=== PATIENT | female | born 1940 | race Caucasian/White ===

== ENCOUNTER 2020-03-24 13:56 | Outpatient (REF) | payer MEDICARE, SELFPAY ==
--- NOTE | 2020-03-24 | MM_ITS ---
EXAMINATION: MM SCREENING DIGITAL BREAST TOMOSYNTHESIS, BILATERAL CLINICAL INFORMATION: Screening. Asymptomatic. The lifetime risk of breast cancer based on the Tyrer-Cuzick Model is 2%. COMPARISON: Mammography: 05/02/2017, 04/22/2016 TECHNIQUE: Digital breast tomosynthesis is performed in both the craniocaudal and mediolateral oblique views along with computer-aided detection (CAD). Synthesized 2D images are generated from the tomosynthesis. FINDINGS: There are scattered areas of fibroglandular density (ACR BI-RADS breast composition Category b). Breast tissue composition borders on predominantly fatty. Background stromal and fibroglandular densities are stable. There are no significant masses, abnormal calcifications, or other abnormalities. The axilla and skin contours are unremarkable. MM/MM tomosynthesis screening BI IMPRESSION: No mammographic evidence of malignancy. ASSESSMENT: BI-RADS 1: Negative RECOMMENDATION: Routine annual mammography screening. This patient's information was entered into a reminder system with a target due date for their next mammogram.
== END 2020-03-24 13:57 | disposition home or self-care (01) ==
LOC: HO.MAMMO 13:56
PROVIDERS: PCP Internal Medicine; Visit Provider Internal Medicine
DX: Z12.31 Encounter for screening mammogram for malignant neoplasm of breast (principal)
CPT/HCPCS: 77063; 77067

== ENCOUNTER 2020-06-04 08:31 | Outpatient (REF) | payer MEDICARE, SELFPAY ==
[2020-06-04 09:10] LABS: Hematocrit 39.4 % (37-47); Hemoglobin 12.8 g/dl (12.0-16.0); Mean Corpuscular HGB Conc 32.5 g/dl (31.0-35.0); Mean Corpuscular Hemoglobin 31.4 pg (27.0-33.0); Mean Corpuscular Volume 96.8 fL (80-98); Mean Platelet Volume 10.2 fL (9.4-12.3); Platelet Count 222 X10*3/uL (160-400); Red Blood Count 4.07 X10*6/uL (4.20-5.50); Red Cell Distribution Width 11.6 % (11.0-16.0); White Blood Count 4.2 X10*3/uL (4.8-10.8)
[2020-06-04 09:50] LABS: Alanine Aminotransferase 6 U/L (0-31); Albumin Level 4.2 g/dL (3.5-5.0); Alkaline Phosphatase 68 U/L (39-117); Anion Gap 12 (12-20); Aspartate Amino Transferase 18 U/L (5-31); Bilirubin Total 0.9 mg/dL (0.0-1.0); Blood Urea Nitrogen 13 mg/dL (9-16); Calcium 9.1 mg/dL (8.4-10.2); Carbon Dioxide 29 mmol/L (22-29); Chloride 105 mmol/L (96-108); Cholesterol 243 mg/dL; Estimated Glomerular Filt Rate > 60; Glucose Fasting 82 mg/dL (60-99); HDL Cholesterol 70 mg/dL; LDL Cholesterol Calculated 152 mg/dl; Potassium 4.1 mmol/l (3.3-5.1); Sodium 142 mmol/L (135-145); Total Protein 6.3 g/dL (6.5-8.0); Triglycerides 105 mg/dL
== END 2020-06-04 08:32 | disposition home or self-care (01) ==
LOC: HO.LAB 08:31
PROVIDERS: PCP Internal Medicine; Visit Provider Physician Assistant
DX: Z13.220 Encounter for screening for lipoid disorders (principal); Z13.1 Encounter for screening for diabetes mellitus; F41.9 Anxiety disorder, unspecified; I10 Essential (primary) hypertension
CPT/HCPCS: 36415; 80053; 80061; 84443; 85027

== ENCOUNTER 2020-06-10 | Outpatient (REF) | payer MEDICARE, SELFPAY | END 2020-06-10 00:01 | disposition home or self-care (01) | LOC: HO.VC | PROVIDERS: Visit Provider Internal Medicine | DX: Z23 Encounter for immunization (principal) | CPT/HCPCS: 0011A ==

== ENCOUNTER 2020-07-08 | Outpatient (REF) | payer MEDICARE, SELFPAY | END 2020-07-08 00:01 | disposition home or self-care (01) | LOC: HO.VC | PROVIDERS: Visit Provider Internal Medicine | DX: Z23 Encounter for immunization (principal) | CPT/HCPCS: 0012A ==

== ENCOUNTER 2021-02-22 14:03 | Outpatient (REF) | payer MEDICARE, SELFPAY ==
--- NOTE | ~2021-02-22 | XR_ITS ---
EXAMINATION: XR CERVICAL SPINE CLINICAL INFORMATION: Neck pain. COMPARISON: None TECHNIQUE: 4 views of the cervical spine were obtained. FINDINGS: There is normal cervical lordosis and spinal alignment. The vertebral bodies are intact. Moderate degenerative disc disease is seen at C5-C6 with disc space narrowing and moderate marginal osteophyte formation. The facet joints are unremarkable. The spinous processes and odontoid processes are intact. The prevertebral soft tissues are unremarkable. XR/XR cervical spine 2V IMPRESSION: C5-C6 moderate degenerative disc disease without acute abnormality.
[2021-02-22 14:24] LABS: MANUAL DIFF FLAG NO
[2021-02-22 15:05] LABS: Basophils Absolute Auto 0.1 X10*3/uL (0.0-0.2); Basophils Percent Auto 1.1 % (0-2); Eosinophils Absolute Auto 0.1 X10*3/uL (0.0-0.4); Eosinophils Percent Auto 2.8 % (0-4); Hematocrit 37.4 % (37-47); Hemoglobin 12.6 g/dl (12.0-16.0); Imm Gran Abs Auto 0.01 X10*3/uL (0.00-0.03); Imm Gran Pct Auto 0.2 % (0.0-0.4); Lymphocytes Absolute Auto 1.4 X10*3/uL (1.2-4.9); Lymphocytes Percent Auto 30.7 % (20-40); Mean Corpuscular HGB Conc 33.7 g/dl (31.0-35.0); Mean Corpuscular Hemoglobin 31.7 pg (27.0-33.0); Mean Platelet Volume 10.6 fL (9.4-12.3); Monocytes Absolute Auto 0.4 X10*3/uL (0.1-1.2); Monocytes Percent Auto 9.2 % (2-11); Neutrophils Absolute Auto 2.6 X10*3/uL (2.0-8.3); Platelet Count 208 X10*3/uL (160-400); Red Blood Count 3.98 X10*6/uL (4.20-5.50); White Blood Count 4.6 X10*3/uL (4.8-10.8)
[2021-02-22 15:36] LABS: Alanine Aminotransferase 9 U/L (0-31); Albumin Level 4.2 g/dL (3.5-5.0); Alkaline Phosphatase 71 U/L (39-117); Anion Gap 15 (12-20); Aspartate Amino Transferase 23 U/L (5-31); Bilirubin Total 0.7 mg/dL (0.0-1.0); Blood Urea Nitrogen 10 mg/dL (9-16); Calcium 9.5 mg/dL (8.4-10.2); Carbon Dioxide 22 mmol/L (22-29); Chloride 104 mmol/L (96-108); Cholesterol 233 mg/dL; Estimated Glomerular Filt Rate > 60; Glucose Random 78 mg/dL (60-115); HDL Cholesterol 71 mg/dL; LDL Cholesterol Calculated 148 mg/dl; Potassium 4.4 mmol/L (3.3-5.1); Sodium 137 mmol/L (135-145); Total Protein 6.6 g/dL (6.5-8.0); Triglycerides 74 mg/dL
[2021-02-22 15:49] LABS: Free T4 (Free Thyroxine) 1.06 ng/dL (0.71-1.85); Vitamin D 25-OH Total 57.8 ng/mL (>30)
[2021-02-22 16:07] LABS: Folate 9.4 ng/mL (> or = 4.0); Vitamin B12 330 pg/mL (200-900)
== END 2021-02-22 14:04 | disposition home or self-care (01) ==
LOC: HO.XRAY 14:03
PROVIDERS: PCP Internal Medicine; Visit Provider Internal Medicine
DX: M54.2 Cervicalgia (principal); E78.00 Pure hypercholesterolemia, unspecified
CPT/HCPCS: 36415; 72040; 80053; 80061; 82306; 82607; 82746; 84439; 84443; 85025

== ENCOUNTER 2021-03-29 13:08 | Outpatient (REF) | payer MEDICARE, SELFPAY ==
--- NOTE | ~2021-03-29 | MM_ITS ---
EXAMINATION: MM SCREENING DIGITAL BREAST TOMOSYNTHESIS, BILATERAL CLINICAL INFORMATION: Screening. Asymptomatic. The lifetime risk of breast cancer based on the Tyrer-Cuzick Model is 2%. COMPARISON: Mammography: 03/24/2020, 05/02/2017, 04/22/2016 TECHNIQUE: Digital breast tomosynthesis is performed in both the craniocaudal and mediolateral oblique views along with computer-aided detection (CAD). Synthesized 2D images are generated from the tomosynthesis. FINDINGS: There are scattered areas of fibroglandular density (ACR BI-RADS breast composition Category b). There are no significant masses, abnormal calcifications, or other abnormalities. The axilla and skin contours are unremarkable. MM/MM tomosynthesis screening BI IMPRESSION: No mammographic evidence of malignancy. ASSESSMENT: BI-RADS 1: Negative RECOMMENDATION: Routine annual mammography screening. This patient's information was entered into a reminder system with a target due date for their next mammogram.
== END 2021-03-29 13:09 | disposition home or self-care (01) ==
LOC: HO.MAMMO 13:08
PROVIDERS: Visit Provider Internal Medicine
DX: Z12.31 Encounter for screening mammogram for malignant neoplasm of breast (principal)
CPT/HCPCS: 77063; 77067

== ENCOUNTER 2021-04-06 07:31 | Outpatient (REF) | payer MEDICARE, SELFPAY | END 2021-04-06 07:32 | disposition home or self-care (01) | LOC: HO.LAB 07:31 | PROVIDERS: PCP Internal Medicine; Visit Provider Internal Medicine | DX: Z20.822 Contact with and (suspected) exposure to COVID-19 (principal) | CPT/HCPCS: C9803; U0003; U0005 ==

== ENCOUNTER 2021-07-21 12:34 | Outpatient (REF) | payer MEDICARE, SELFPAY ==
--- NOTE | ~2021-07-21 | XR_ITS ---
EXAMINATION: XR CERVICAL SPINE CLINICAL INFORMATION: Neck pain COMPARISON: None TECHNIQUE: 3 views of the cervical spine were obtained. FINDINGS: There is maintained cervical lordosis. The vertebral heights and alignment is normal. Loss of C4-C5 disc height with ventral spondylosis. Rest of the disc heights are normal. No acute fracture or dislocation seen. The craniovertebral junction and the C1-C2 alignment is normal. There is bilateral C3-4 through C6-C7 facet joint arthropathy and hypertrophy. The prevertebral soft tissues are normal. XR/XR cervical spine 2V IMPRESSION: Degenerative disc changes with ventral spondylosis C5-C6 disc level. No visible acute fracture or dislocation seen.
== END 2021-07-21 12:35 | disposition home or self-care (01) ==
LOC: HO.XRAY 12:34
PROVIDERS: PCP Internal Medicine; Visit Provider Internal Medicine
DX: M54.2 Cervicalgia (principal)
CPT/HCPCS: 72040

== ENCOUNTER 2021-08-19 10:00 | Outpatient (RCR) | payer MEDICARE, SELFPAY ==
--- NOTE | 2021-07-13 11:26 | MHC.PT.EP ---
[facility] [place] Office [place] Office [place] Office [address] [phone] F: [phone] F: [phone] F: [phone] F: [phone] Physical Therapy Plan of Care Date of Evaluation: Date of Surgery: N/A Diagnosis: Cervicalgia Assessment: Pt is pleasant 81yo F who presents to PT with reports of L sided neck pain. She presents with current impairments in pain, decreased cervical ROM, impaired posture, and soft tissue restrictions throughout L UT, levator, and occipitals. She had relief of symptoms with gentle STM. She is limited functionally with flexing her neck, morning time, and watching tv. She is a good candidate for skilled PT in order to address current impairments to facilitate return to PLOF. She will be seen 2x/week for 4 weeks and will be reassessed at that time. Frequency and Duration: The patient will be seen 2x/week for 4 weeks Short Term Goals: Pt will be I with HEP to promote self management of symptoms Pt will improve B cervical rotation by at least 5 deg Systems Technologist Goals: Pt will demonstrate ability to sit > 30 min with minimal to no pain throughout neck Pt will perform ADLs with minimal to no pain without compensation Treatment Plan: Modalities to reduce pain, spasms and effusion. Manual therapy to restore motion and function. Therapeutic exercise to improve strength and flexibility. Neuromuscular re-education for posture and balance. Therapeutic activities to return to functional activities of daily living. Electronically signed by: Dixie Barnes, PT, DPT Please sign and return to therapist. Thank you for your referral.
--- NOTE | 2021-08-19 17:56 | MHC.PT.DC ---
[facility] [place] Office [place] Office [place] Office [address] [phone] F: [phone] F: [phone] F: [phone] F: [phone] Physical Therapy Discharge Report Diagnosis: Cervicalgia Date of Surgery: N/A Date of Evaluation: 07/13/21 Date of Discharge: 08/19/21 Treatments to Date: 9 Cancellations to Date: 2 No Shows to Date: Discharge Status: Achieved Goals Improved Function Independent with HEP Discharge Summary: Pt has made good progress since SOC. She has demonstrated improvements in cervical ROM, improvements in postural awareness, and has had an overall decrease in pain. She has made good progress toward her STGs and LTGs. Pt is I with HEP. Pt is being D/C from skilled PT services at this time. Provided pt a printed, updated copy of HEP and RTB and pt verbalized understanding. Pt reports no further questions or concerns for PT at this time. Electronically signed by: Dixie Barnes, PT, DPT Please sign and return to therapist. Thank you for your referral.
== END 2021-08-25 11:36 | disposition home or self-care (01) ==
LOC: HO.PT 10:00
PROVIDERS: PCP Internal Medicine; Visit Provider Nurse Practitioner Family
DX: M54.2 Cervicalgia (principal)
CPT/HCPCS: 97110; 97140; 97161

== ENCOUNTER 2021-08-26 12:19 | Outpatient (REF) | payer MEDICARE, SELFPAY ==
--- NOTE | ~2021-08-26 | US_ITS ---
EXAMINATION: ULTRASOUND LOWER EXTREMITY ARTERIAL, LEFT TECHNIQUE: COLOR-FLOW DUPLEX IMAGING OF THE LEFT LOWER EXTREMITY ARTERIAL SYSTEM. VELOCITY MEASUREMENTS THROUGHOUT THE FEMORAL ARTERIES. CLINICAL INFORMATION: Pain in left leg COMPARISON: None. FINDINGS: LEFT FEMORAL RUNOFF VELOCITIES: The left common femoral artery measures 146cm/s and is triphasic. The left profunda femoral artery measures 80.1cm/s and is triphasic. Left proximal superficial femoral artery measures 128 cm/s and is triphasic. Mid superficial femoral artery measures 86.5cm/s and is triphasic. Distal left superficial femoral artery [id number]/s and is triphasic. Left popliteal velocity measures 56.6cm/s and is triphasic. Posterior tibial velocity is 69.8cm/s and flow is biphasic. Peroneal velocity is 58.6 and flow is biphasic Anterior tibial artery not evaluated. Dorsal pedis artery not evaluated. Left DIONY: Not obtained US/US arterial duplex LE IMPRESSION: No hemodynamically significant stenosis identified in the visualized arterial vasculature with patency of the interrogated vessels.
--- NOTE | ~2021-08-26 | US_ITS ---
EXAMINATION: US VENOUS ULTRASOUND WITH DOPPLER LOWER EXTREMITY, LEFT CLINICAL INFORMATION: Left leg swelling COMPARISON: Left leg DVT study 05/21/2019 TECHNIQUE: Ultrasound of the deep veins is performed from the hip to the calf with compression sonography and color and pulse Doppler assessment. Spectral analysis with color-flow imaging is performed. FINDINGS: There is normal venous compression and respiratory variation and augmented flow. The visualized common femoral vein, superficial femoral vein, profunda femoral vein, popliteal vein, and the trifurcation region shows no evidence of deep venous thrombosis. There is no significant popliteal fossa cyst. If the patient's symptoms persist, followup ultrasound in 5 days 7 days might be of value to exclude proximal propagation from a non-visualized calf vein. US/US venous duplex LE LT IMPRESSION: No DVT demonstrated in the left lower extremity.
== END 2021-08-26 12:20 | disposition home or self-care (01) ==
LOC: HO.US 12:19
PROVIDERS: Visit Provider Nurse Practitioner Family
DX: M79.605 Pain in left leg (principal); M79.89 Other specified soft tissue disorders; I73.9 Peripheral vascular disease, unspecified
CPT/HCPCS: 93926; 93971

== ENCOUNTER 2022-02-10 07:59 | Outpatient (REF) | payer MEDICARE, SELFPAY ==
[2022-02-10 09:31] LABS: Basophils Percent Auto 0.9 % (0-2); Hemoglobin 12.4 g/dl (12.0-16.0); Monocytes Absolute Auto 0.4 X10*3/uL (0.1-1.2); Monocytes Percent Auto 8.7 % (2-11); PLT CLUMP 1; SCAN SMEAR FLAG 1
[2022-02-10 09:34] LABS: Eosinophils Absolute Auto 0.1 X10*3/uL (0.0-0.4); Eosinophils Percent Auto 2.3 % (0-4); Hematocrit 37.4 % (37.0-47.0); Imm Gran Abs Auto 0.01 X10*3/uL (0.00-0.03); Imm Gran Pct Auto 0.2 % (0.0-0.4); Lymphocytes Absolute Auto 1.1 X10*3/uL (1.2-4.9); Lymphocytes Percent Auto 24.9 % (20-40); MANUAL DIFF FLAG SCAN; Mean Corpuscular HGB Conc 33.2 g/dl (31.0-35.0); Mean Corpuscular Hemoglobin 31.2 pg (27.0-33.0); Neutrophils Absolute Auto 2.7 x10*3/uL (2.0-8.3); Red Blood Count 3.98 X10*6/uL (4.20-5.50)
[2022-02-10 09:55] LABS: White Blood Count 4.3 X10*3/uL (4.8-10.8)
[2022-02-10 09:56] LABS: SLIDE REVIEW VERIFIED
[2022-02-10 09:59] LABS: B Type Natriuretic Peptide 46 pg/mL (<100)
[2022-02-10 10:09] LABS: Alanine Aminotransferase 13 U/L (0-31); Albumin Level 4.1 g/dL (3.5-5.0); Alkaline Phosphatase 83 U/L (39-117); Anion Gap 16 (12-20); Aspartate Amino Transferase 26 U/L (5-31); Bilirubin Total 0.6 mg/dL (0.0-1.0); Blood Urea Nitrogen 11 mg/dL (9-16); Calcium 9.3 mg/dL (8.4-10.2); Carbon Dioxide 24 mmol/L (22-29); Chloride 105 mmol/L (96-108); Cholesterol 225 mg/dL; Estimated Glomerular Filt Rate > 60; Glucose Random 77 mg/dL (60-115); HDL Cholesterol 72 mg/dL; LDL Cholesterol Calculated 135 mg/dl; Potassium 4.3 mmol/L (3.3-5.1); Sodium 141 mmol/L (135-145); Total Protein 6.5 g/dL (6.5-8.0); Triglycerides 91 mg/dL
[2022-02-10 10:36] LABS: Free T4 (Free Thyroxine) 1.06 ng/dL (0.71-1.85); Thyroid Stimulating Hormone 0.56 uIU/mL (0.32-4.0); Vitamin D 25-OH Total 61.8 ng/mL (>30)
[2022-02-10 11:47] LABS: Folate > 20.0 ng/mL (> or = 4.0); Vitamin B12 500 pg/mL (200-900)
== END 2022-02-10 08:00 | disposition home or self-care (01) ==
LOC: HO.LAB 07:59
PROVIDERS: PCP Internal Medicine; Visit Provider Internal Medicine
DX: E78.00 Pure hypercholesterolemia, unspecified (principal)
CPT/HCPCS: 36415; 80053; 80061; 82306; 82607; 82746; 83735; 83880; 84439; 84443; 85025

== ENCOUNTER 2022-04-04 12:06 | Outpatient (REF) | payer MEDICARE, SELFPAY ==
--- NOTE | ~2022-04-04 | MM_ITS ---
EXAMINATION: MM SCREENING DIGITAL BREAST TOMOSYNTHESIS, BILATERAL CLINICAL INFORMATION: Screening. Asymptomatic. The lifetime risk of breast cancer based on the Tyrer-Cuzick Model is 2%. COMPARISON: Mammography: 03/29/2021, 03/24/2020, 05/02/2017 TECHNIQUE: Digital breast tomosynthesis is performed in both the craniocaudal and mediolateral oblique views along with computer-aided detection (CAD). Synthesized 2D images are generated from the tomosynthesis. FINDINGS: There are scattered areas of fibroglandular density (ACR BI-RADS breast composition Category b). There are no significant masses, abnormal calcifications, or other abnormalities. Breast tissue composition borders on predominantly fatty. Background stromal markings are similar to prior study. No developing density. No architectural abnormality. The axilla and skin contours are unremarkable. MM/MM tomosynthesis screening BI IMPRESSION: No mammographic evidence of malignancy. ASSESSMENT: BI-RADS 1: Negative RECOMMENDATION: Routine annual mammography screening. This patient's information was entered into a reminder system with a target due date for their next mammogram.
== END 2022-04-04 12:07 | disposition home or self-care (01) ==
LOC: HO.MAMMO 12:06
PROVIDERS: PCP Internal Medicine; Visit Provider Internal Medicine
DX: Z12.31 Encounter for screening mammogram for malignant neoplasm of breast (principal)
CPT/HCPCS: 77063; 77067

== ENCOUNTER 2022-05-20 12:12 | Emergency (ER) | payer MEDICARE, SELFPAY ==
--- NOTE | ~2022-05-20 | CT_ITS ---
EXAMINATION: CT ABDOMEN AND PELVIS WITH CONTRAST CLINICAL INFORMATION: Lower abdominal pain. Rule out diverticulitis COMPARISON: 04/06/2018 TECHNIQUE: Multidetector volumetric images were obtained from the superior aspect of the liver through the pubic symphysis following administration 85 mL of Omnipaque 350 intravenous contrast. Sagittal and coronal reformatted images were obtained on the technologist's workstation. Oral contrast: No This CT examination was performed using dose optimization techniques as appropriate, variously including the following: *Automated exposure control *Adjustment of mA and/or kV according to patient size (this includes techniques or standardized protocols for targeted exams where dose is matched to indication/reason for exam; i.e. extremities or head) *Use of iterative reconstruction technique DLP: 683 mGy-cm FINDINGS: LUNG BASES: The visualized lung bases are unremarkable. LIVER, GALLBLADDER, AND BILIARY TREE: The liver is normal in size, shape, and attenuation no focal liver lesion seen. Mild central intrahepatic biliary ductal dilatation. The common bile duct is dilated to 1.2 cm. No filling defects seen. There are gallstones within the gallbladder. The gallbladder is significantly distended but there is no gallbladder wall thickening or pericholecystic fluid. PANCREAS: Unremarkable. SPLEEN: Normal size. No focal splenic lesion. 6 mm calcified splenic artery aneurysm. ADRENAL GLANDS: Unremarkable. KIDNEYS AND URETERS: The kidneys are normal in size, shape, and attenuation. No hydronephrosis, hydroureter, or calculi seen. No perinephric stranding. BLADDER: Unremarkable. GASTROINTESTINAL TRACT: Small hiatal hernia. Small bowel nondilated. Normal appendix. There is severe sigmoid diverticulosis. There is fluid and fat stranding along the left lateral margin of the sigmoid colon with irregular sigmoid wall thickening. ABDOMINAL WALL: No significant hernia is appreciated. LYMPH NODES: Normal. VASCULAR: Normal caliber abdominal aorta. IVC is patent. Prominent rectal collaterals. PELVIC VISCERA: Normal CT appearance of the uterus. No adnexal mass. OSSEOUS STRUCTURES: Degenerative changes. No acute or suspicious osseous abnormality. CT/CT abdomen pelvis w IV con IMPRESSION: Eccentric wall thickening of the sigmoid colon with adjacent fluid and fat stranding. There is a background of severe colonic diverticulosis. The appearance suggest diverticulitis although a short segment colitis could have this appearance as well. The findings are new since the prior CT scan in 2018. Recommend colonoscopy after treatment to exclude a microperforated colon cancer which can present similarly. Fleischner guidelines were followed.
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
[2022-05-20 12:19] VITALS: BP 149/78; PULSE 108; RESP 18; TEMP 36.8; O2SAT 97; BMI 22.4
[2022-05-20 13:12] LABS: MANUAL DIFF FLAG NO
[2022-05-20 13:13] LABS: Basophils Percent Auto 0.3 % (0-2); Eosinophils Percent Auto 0.4 % (0-4); Hematocrit 36.9 % (37.0-47.0); Hemoglobin 12.4 g/dl (12.0-16.0); Imm Gran Abs Auto 0.01 X10*3/uL (0.00-0.03); Imm Gran Pct Auto 0.1 % (0.0-0.4); Lymphocytes Absolute Auto 0.8 X10*3/uL (1.2-4.9); Mean Corpuscular HGB Conc 33.6 g/dl (31.0-35.0); Mean Corpuscular Hemoglobin 31.3 pg (27.0-33.0); Mean Corpuscular Volume 93.2 fL (80.0-98.0); Mean Platelet Volume 9.7 fL (9.4-12.3); Monocytes Absolute Auto 0.8 X10*3/uL (0.1-1.2); Monocytes Percent Auto 8.7 % (2-11); Neutrophils Absolute Auto 7.9 x10*3/uL (2.0-8.3); Neutrophils Percent Auto 82.5 % (45-73); Platelet Count 200 X10*3/uL (160-400); Red Blood Count 3.96 X10*6/uL (4.20-5.50); Red Cell Distribution Width 11.8 % (11.0-16.0); White Blood Count 9.6 X10*3/uL (4.8-10.8)
[2022-05-20 13:35] LABS: Alanine Aminotransferase 10 U/L (0-31); Alkaline Phosphatase 84 U/L (39-117); Anion Gap 13 (12-20); Aspartate Amino Transferase 23 U/L (5-31); Bilirubin Direct 0.3 mg/dL (0.0-0.5); Bilirubin Total 0.9 mg/dL (0.0-1.0); Blood Urea Nitrogen 12 mg/dL (9-16); Calcium 9.3 mg/dL (8.4-10.2); Carbon Dioxide 27 mmol/L (22-29); Chloride 102 mmol/L (96-108); Creatinine Clr Calc Pharmacy 53.1; Estimated Glomerular Filt Rate > 60; Glucose Random 96 mg/dL (60-115); Lipase 19 U/L (8-78); Potassium 4.1 mmol/L (3.3-5.1); Sodium 138 mmol/L (135-145); Total Protein 6.3 g/dL (6.5-8.0)
[2022-05-20 14:28] VITALS: BP 145/67; PULSE 83; RESP 14; TEMP 37.2; O2SAT 98
[2022-05-20 14:28] LABS: Appearance Urine Clear; Color Urine Yellow; Glucose Urine UA Negative (Negative); Leukocyte Esterase Urine Trace (Negative); Nitrite Urine Negative (Negative); PH 6.5 (5.0-9.0); UMIC TRIGGER UACC YES; Urine Blood Negative (Negative); Urine Ketones Negative (Negative); Urine Protein Negative (Neg-Trace)
[2022-05-20 14:31] LABS: Bacteria Urine None Seen (None Seen); Hyaline Casts Urine 0-2 /LPF (0-2); RBC Urine 0-2 /HPF (0-2); Squamous Epithelial Cell Urine 0-2 /HPF (0-2); WBC Urine 0-5 /HPF (0-5)
[2022-05-20] MEDS: iohexoL 350 MG/ML 100 ML INFUS..BTL IV (14:35)
== END 2022-05-20 16:11 | disposition home or self-care (01) ==
PROVIDERS: Nurse Practitioner Family; Emergency Provider Emergency Medicine; PCP Internal Medicine
DX: K57.32 Diverticulitis of large intestine without perforation or abscess without bleeding (principal); R10.30 Lower abdominal pain, unspecified; Z87.891 Personal history of nicotine dependence; Z79.899 Other long term (current) drug therapy
CPT/HCPCS: 36415; 74177; 80048; 80076; 81001; 83690; 85025; 99284; Q9967

== ENCOUNTER 2022-05-27 14:08 | Outpatient (REF) | payer MEDICARE, SELFPAY ==
--- NOTE | ~2022-05-27 | MM_ITS ---
EXAMINATION: BONE DENSITOMETRY CLINICAL INDICATION: Age-related osteoporosis without current pathological fracture. COMPARISON: Baseline BD dated 02/28/2019. TECHNIQUE: Using a Blow[employer]ch DXA System (software version: 13.1) manufactured by [email or web address], dual-energy x-ray absorptiometry was performed of the lumbar spine and left hip. The images are of good technical quality. Summary results are attached. FINDINGS: AP SPINE L1-L4: Current: BMD 1.110 g/cm2, Z-score 1.4, T-score -0.6, normal, 4.7% decrease from baseline (<5% change is not significant). Baseline: BMD 1.165 g/cm2. LEFT FEMUR, NECK: Current: BMD 0.699 g/cm2, Z-score -0.2, T-score -2.4, osteopenia. Baseline: BMD 0.724 g/cm2. LEFT FEMUR, TOTAL: Current: BMD 0.723 g/cm2, Z-score -0.2, T-score -2.3, osteopenia, 5.1% decrease from baseline (<5% change is not significant). Baseline: BMD 0.762 g/cm2. IDENTIFIED RISK FACTORS: Menopause. HISTORY OF FRACTURE: None listed. MEDICATIONS: Multivitamin. MM/XR DEXA axial skeleton IMPRESSION: 1. DIAGNOSIS: Osteopenia based on the lowest T-score value of -2.4 in the femoral neck applying World Health Organization criteria. 2. 10-YEAR FRACTURE RISK PREDICTION, FRAX: Major osteoporotic fracture (clinical spine, forearm, hip or shoulder) 18.9%. Hip fracture 6.6%. 3. Treatment Recommendations: NOF guidelines recommend consideration for treatment in postmenopausal women and men age 50 and older presenting with the following: -A hip or vertebral (clinical or morphometric) fracture. -T-score less than or equal to -2.5 at the femoral neck or spine after appropriate evaluation to exclude secondary causes. -Low bone mass at the hip or spine and a 10-year fracture probability by FRAX of greater than or equal to 3% for hip fracture or greater than or equal to 20% for major osteoporotic fracture based on the [place] adapted WHO algorithm. 4. Other Recommendations: All treatment decisions require clinical judgment and consideration of individual patient factors, including patient preferences, comorbidities, previous drug use, risk factors not captured in the FRAX model (e.g. frailty, falls, vitamin D deficiency, increased bone turnover, interval significant decline in bone density) and possible under or overestimation of fracture risk by FRAX. Additional medical evaluation for secondary cause of low bone mineral density may be appropriate. FUTURE SCAN RECOMMENDATION: People with diagnosed cases of osteoporosis or at high risk for fracture should have regular bone mineral density tests. For patients eligible for Medicare, routine testing is allowed once every 2 years. The testing frequency can be increased to one year for patients who have rapidly progressing disease, those who are receiving or discontinuing medical therapy to restore bone mass, or have additional risk factors.
== END 2022-05-27 14:09 | disposition home or self-care (01) ==
LOC: HO.MAMMO 14:08
PROVIDERS: PCP Internal Medicine; Visit Provider Internal Medicine
DX: M81.0 Age-related osteoporosis without current pathological fracture (principal); Z78.0 Asymptomatic menopausal state
CPT/HCPCS: 77080

== ENCOUNTER → 2022-07-13 11:35 | Outpatient (BNVA) | payer MEDICARE, SELFPAY | PROVIDERS: PCP Internal Medicine; Referring Provider Internal Medicine; Visit Provider Nurse Practitioner Family | DX: K59.04 Chronic idiopathic constipation (principal); K57.92 Diverticulitis of intestine, part unspecified, without perforation or abscess without bleeding | CPT/HCPCS: 99202 ==

== ENCOUNTER → 2022-08-10 12:20 | Outpatient (BNVA) | payer MEDICARE, SELFPAY | PROVIDERS: PCP Internal Medicine; Visit Provider Nurse Practitioner Family | DX: K59.04 Chronic idiopathic constipation (principal); K57.90 Diverticulosis of intestine, part unspecified, without perforation or abscess without bleeding | CPT/HCPCS: 99212 ==

== ENCOUNTER 2022-11-17 09:32 | Outpatient (AMB) | payer MEDICARE, SELFPAY ==
[2022-11-17 09:42] VITALS: BP 138/74; PULSE 76; O2SAT 96; BMI 22.0
--- NOTE | 2022-11-17 09:42 | A.OFFPC_ITS ---
Vital Signs 11/17/22 09:42 Height 5 ft 5 in Weight 132 lb BMI 22.0 BP 138/74 Blood Pressure Location Lt brachial Position Sitting Pulse 76 Pulse Source Pulse Oximeter Pulse Oximetry (%) 96 Oxygen Delivery Method Room Air Intake Visit Reasons: 6m F/U cholesterol , COPD Allergies aspirin [ASPIRIN] Allergy (Severe, Verified 11/17/22 09:43) ANAPHYLAXIS codeine [CODEINE] Allergy (Severe, Verified 11/17/22 09:43) ANAPHYLAXIS, itching naproxen [NAPROXEN] Allergy (Severe, Verified 11/17/22 09:43) ANAPHYLAXIS NSAIDS (Non-Steroidal Anti-Inflamma [NSAIDS (NON-STEROIDAL ANTI-INFLAMMA] All ergy (Severe, Verified 11/17/22 09:43) ANAPHYLAXIS (STATES CAN TAKE IBUPROFEN) doxycycline [DOXYCYCLINE] Allergy (Unknown, Verified 11/17/22 09:43) RASH ranitidine [From ZANTAC] Allergy (Unknown, Verified 11/17/22 09:43) UNKNOWN sertraline [From ZOLOFT] Allergy (Unknown, Verified 11/17/22 09:43) FELT LIKE I WAS ON FIRE Sulfa (Sulfonamide Antibiotics) [SULFA (SULFONAMIDE ANTIBIOTICS)] Allergy (Unknown, Verified 11/17/22 09:43) UNKNOWN Tobacco use date assessed: 06/08/22 Fall risk assessment: No Falls in past year Last assessed Fall Risk: 11/17/22 Dental Screening Dental Screen Date: 11/17/22 Did you have a dental visit in the last 12 months?: No Did you have a dental problem in the last 6 months where you did not have access to dental care?: No Was dental information given to patient?: Patient has dentist HPI 6m F/U cholesterol , COPD HPI Details 82-year-old female with a history of diverticulitis cholelithiasis Ellie anxiety disorder constipation and splenic artery aneurysm coming in for follow-up last seen in June 2022 patient did see gastroenterology August 2022 for the constipation Colace, Metamucil and increasing oral fluids advised Senokot. 2 month L leg on walking pain on the lateral posterior knee area and gets better on sitting denies any fall or trauma and with this complains of pain otherwise no nausea no vomiting no chest pains no shortness of breath no bowel bladder symptoms. [facility] Medical History Allergic rhinitis Diverticulitis Generalized anxiety disorder History of diverticulitis Hypercholesterolemia Insomnia Osteoarthritis, knee Osteopenia Pulmonary nodule Small bowel obstruction Surgical History History of bilateral cataract extraction History of cataract surgery History of colonoscopy History of tonsillectomy History of tonsillectomy Family History Father Obesity Stroke Mother Afib Son Diabetes Father No problems noted. Mother No problems noted. Son No problems noted. Social History Housing: House Alcohol intake: current Alcohol intake frequency: holidays/special occasions only Alcohol type: wine Patient Tobacco Use Status: Former Tobacco user Tobacco use type: Cigarette e-Cigarette/Vaping Use: Never Used Second Hand Smoke Exposure: Yes service: No Current occupational status: retired Cognitive needs: No Hearing needs: No Vision needs: Yes (reading glasses) Questionnaire PHQ-9 Over the last 2 weeks, how often have you been bothered by any of the following problems? 1. Little interest or pleasure in doing things: not at all 2. Feeling down, depressed, or hopeless: not at all 3. Trouble falling or staying asleep, or sleeping too much: not at all 4. Feeling tired or having little energy: not at all 5. Poor appetite or overeating: not at all 6. Feeling bad about yourself - or that you are a failure or have let yourself or your family down: not at all 7. Trouble concentrating on things, such as reading the newspaper or watching television: not at all 8. Moving or speaking so slowly that other people could have noticed. Or the opposite - being so fidgety or restless that you have been moving around a lot more than usual: not at all 9. Thoughts that you would be better off or of hurting yourself in some way: not at all Total score: 0 Depression Screening Interpretation: Negative Source: Developed by Drs. Boubacar Valdez, Connie Ma, Anthony Coleman and colleagues, with an educational swathi from [employer]. Thrive Questionnaire Date Thrive assessed: 06/08/22 AUDIT C Alcohol Use Questionnaire (AUDIT-C) 1. How often do you have a drink containing alcohol?: Never Total Score: 0 Score Reviewed/Action Taken: No EUSEBIA-7 AMB Questionnaire EUSEBIA-7 Date EUSEBIA - 7 assessed: 06/08/22 Source: Developed by Drs. Boubacar Valdez, Connie Ma, Anthony Coleman and colleagues, with an educational swathi from [employer]. Physical exam (Primary Care) Vital Signs: Last Vital Signs Pulse 76 11/17/22 09:42 BP 138/74 11/17/22 09:42 Pulse Ox 96 11/17/22 09:42 Oxygen Delivery Method Room Air 11/17/22 09:42 BMI result Body Mass Index 22.0 Tobacco/Smoking Status: Tobacco use Status Tobacco use date assessed 06/08/22 11/17/22 09:44 Patient Tobacco Use Status Former Tobacco user 11/17/22 09:44 Tobacco use type Cigarette 11/17/22 09:44 e-Cigarette/Vaping Use Never Used 11/17/22 09:44 PHQ-9: PHQ-9 Score PHQ-9: Total score 0 11/17/22 10:09 Depression Screening Interpretation: Negative Thrive Assessment: Date of Thrive Assessment Date Thrive assessed 06/08/22 11/17/22 09:44 Const General: alert; No acute distress Eyes Conjunctivae: conjunctivae normal Resp Auscultation: clear to auscultation bilaterally Cardio Rate: regular rate Rhythm: regular rhythm GI Inspection: Yes normal to inspection Extrem General: Yes normal to inspection and No edema Assessment and Plan Assessment & Plan (1) Constipation: Code(s): K59.00 - Constipation, unspecified Qualifiers: Constipation type: chronic idiopathic constipation Qualified Code(s): K59.04 - Chronic idiopathic constipation Plan: Three rules for constipation 1. Diet need to have a high fiber diet less of meat 2. Increase oral fluids 3. Exercise patient has been following up with Gastroenterology has been placed on Colace, Senokot and Metamucil. Stressed to the patient the need to make sure she is well hydrated with fluids (2) Cholelithiasis: Comment: 05/2022 Code(s): K80.20 - Calculus of gallbladder without cholecystitis without obstruction Plan: Low-fat diet (3) Hypercholesterolemia: Code(s): E78.00 - Pure hypercholesterolemia, unspecified Plan: Avoid fried foods, chicken skin, eggs, butter margarine, pastries and meat. Be it pork or beef they have a lot of cholesterol LDL goal of less than 130 and triglyceride of less than 150 (4) Generalized anxiety disorder: Code(s): F41.1 - Generalized anxiety disorder Plan: Continue with present medication (5) Hamstring tendinitis of left thigh: Code(s): M76.892 - Other specified enthesopathies of left lower limb, excluding foot Plan: will refer to physical therapy Orders: Orders Vitamin B12 and Folate 3 Months E78.00 - Pure hypercholesterolemia, unspecified Comprehensive Met. Panel 3 Months E78.00 - Pure hypercholesterolemia, unspecified Lipid Panel 3 Months E78.00 - Pure hypercholesterolemia, unspecified Free T4 (Free Thyroxine) 3 Months E78.00 - Pure hypercholesterolemia, unspecified Thyroid Stimulating Hormone 3 Months E78.00 - Pure hypercholesterolemia, unspecified Vitamin D 25-OH Total 3 Months E78.00 - Pure hypercholesterolemia, unspecified Complete Blood Count Auto Diff 3 Months E78.00 - Pure hypercholesterolemia, unspecified PT Evaluation and Treatment Today M76.892 - Other specified enthesopathies of left lower limb, excluding foot Coding Level of Care Code Est Pt Level 4 (89900) Diagnoses Constipation K59.04 Constipation type: chronic idiopathic constipation Cholelithiasis K80.20 Hypercholesterolemia E78.00 Generalized anxiety disorder F41.1 Hamstring tendinitis of left thigh M76.892 Additional Codes PHQ-9 - 79312 - PHQ-9 Billing: Y ([id number])
== END 2022-11-17 10:32 | disposition home or self-care (01) ==
PROVIDERS: Visit Provider Internal Medicine
DX: K59.04 Chronic idiopathic constipation (principal); K80.20 Calculus of gallbladder without cholecystitis without obstruction; E78.00 Pure hypercholesterolemia, unspecified; F41.1 Generalized anxiety disorder; M76.892 Other specified enthesopathies of left lower limb, excluding foot
CPT/HCPCS: 99214

== ENCOUNTER 2022-12-13 12:44 | Outpatient (AMB) | payer MEDICARE, SELFPAY ==
--- NOTE | 2022-12-13 12:56 | MHC.OFFVIS ---
Intake Vital Signs 12/13/22 12:57 Height 5 ft 5 in Weight 132 lb 11.492 oz BMI 22.1 BP 142/67 H Blood Pressure Location Rt brachial Position Sitting Pulse 73 Intake Visit Reasons: 4 month follow up Intake Note: Siena presents in office as a est.patient for a 4month f/u for constipation. PT CC: Patient reports she has been having constipation. Denies other GI symptoms. pt denies any other GI Issues Coagulant Dipper Required: No Allergies aspirin [ASPIRIN] Allergy (Severe, Verified 12/13/22 12:58) ANAPHYLAXIS codeine [CODEINE] Allergy (Severe, Verified 12/13/22 12:58) ANAPHYLAXIS, itching naproxen [NAPROXEN] Allergy (Severe, Verified 12/13/22 12:58) ANAPHYLAXIS NSAIDS (Non-Steroidal Anti-Inflamma [NSAIDS (NON-STEROIDAL ANTI-INFLAMMA] Allergy (Severe, Verified 12/13/22 12:58) ANAPHYLAXIS (STATES CAN TAKE IBUPROFEN) doxycycline [DOXYCYCLINE] Allergy (Unknown, Verified 12/13/22 12:58) RASH ranitidine [From ZANTAC] Allergy (Unknown, Verified 12/13/22 12:58) UNKNOWN sertraline [From ZOLOFT] Allergy (Unknown, Verified 12/13/22 12:58) FELT LIKE I WAS ON FIRE Sulfa (Sulfonamide Antibiotics) [SULFA (SULFONAMIDE ANTIBIOTICS)] Allergy (Unknown, Verified 12/13/22 12:58) UNKNOWN HPI 4 month follow up HPI Details LAST VISIT Constipation Patient continues to be constipated, she is taking 2 Colace capsules in the morning and Metamucil in the evening. Encouraged patient to increase fluid intake. Patient had severe sigmoid colon diverticulosis that was seen on CT scan. This could interfere with peristalsis. Will start her on Senokot and hopefully patient will be able to move her bowels better. Diverticulosis Severe sigmoid colon diverticulosis. Patient denies any pain or discomfort. Moving her bowels better. Will add Senokot to help her empty her bowels completely. I will see patient in 4 months, sooner on as needed basis. Patient is agreeable to this plan and verbalizes understanding of instructions. She was given the opportunity to ask questions all questions answered. ? Thank you for allowing me to participate in her care Plan Medications New sennosides (Natural Senna Laxative) 17.2 mg (2 x 8.6 mg) PO BEDTIME 60 tabs 3RF constipation K59.00 Changed From docusate sodium Take it every night at 6 pm 200 mg (2 x 100 mg) PO BEDTIME 180 caps 3RF K59.00 To docusate sodium Take it every night 100 mg PO BEDTIME 90 caps 3RF K59.00 TODAY'S VISIT Patient is here today for follow-up. Patient reports that since the last time I have seen her she has been moving her bowels better. Patient continues to take Metamucil, however she states that she takes it in the evening. She also takes Senokot and Colace at bedtime. Patient reports that she drinks about four 8 oz bottles of water a day. Patient states that she occasionally will have constipation. Patient sometimes will have 1 or 2 days without having a bowel movement. Patient states that when sometimes she will have a bowel movement she will feel like she does not empty it completely. Patient denies any abdominal pain or discomfort. Denies melena, hematochezia, unintentional weight loss or ribbon like stools. Patient denies any other GI concerning symptoms. Patient denies having any issues postprandially. Able to tolerate meals usually eats 3 meals a day with some snacks in between. [facility] Medical History Allergic rhinitis Diverticulitis Generalized anxiety disorder History of diverticulitis Hypercholesterolemia Insomnia Osteoarthritis, knee Osteopenia Pulmonary nodule Small bowel obstruction Surgical History History of bilateral cataract extraction History of cataract surgery History of colonoscopy History of tonsillectomy History of tonsillectomy Family History Father Obesity Stroke Mother Afib Son Diabetes Father No problems noted. Mother No problems noted. Son No problems noted. Social History Housing: House Alcohol intake: current Alcohol intake frequency: holidays/special occasions only Alcohol type: wine Patient Tobacco Use Status: Former Tobacco user Tobacco use type: Cigarette e-Cigarette/Vaping Use: Never Used Second Hand Smoke Exposure: Yes service: No Current occupational status: retired Cognitive needs: No Hearing needs: No Vision needs: Yes (reading glasses) Review of Systems Const Denies weight gain and Denies weight loss ENT Reports no additional complaints, Denies dysphagia and Denies odynophagia Card Reports no additional complaints Resp Reports no additional complaints GI Denies abdominal pain, Denies belching, Denies melena, Denies bloating, Denies change in bowel habits, Reports constipation, Denies dysphagia, Denies excessive flatus, Denies dyspepsia, Denies heartburn, Denies diarrhea, Denies loose stools, Denies nausea, Denies odynophagia and Denies vomiting Reports no additional complaints Musc Reports no additional complaints Neuro Reports no additional complaints Psych Reports no additional complaints Endo Reports no additional complaints Physical Exam Vital Signs: Last Vital Signs Pulse 73 12/13/22 12:57 BP 142/67 H 12/13/22 12:57 BMI result Body Mass Index 22.1 Const General: healthy appearing, no acute distress and well developed Nutritional Appearance: well nourished Orientation/consciousness: patient oriented x3 HEENT Head: Yes normal to inspection, Yes normocephalic and Yes atraumatic Face and sinus: Yes normal facial exam Mouth: Normal oral and palatal mucosa present Throat: Yes posterior oropharynx normal, Yes tonsils normal and Yes uvula midline Eyes General: appearance normal, both eyes and all related structures Neck Neck: Yes normal visual inspection, Yes full ROM and Yes trachea midline Thyroid: Thyroid normal Resp Effort & Inspection: normal respiratory effort, able to speak in complete sentences, no tracheal deviation and symmetric chest movement Auscultation: clear to auscultation bilaterally Cardio Rate: regular rate Heart sounds: S1 normal heart sound present and S2 normal heart sound present GI Inspection: Yes normal to inspection and No distended Palpation (GI): Soft to palpation, not firm, nontender and No hepatosplenomegaly present Auscultation: normal bowel sounds General: Yes no CVA tenderness Back/Spine/Pelvis Back: no CVA tenderness Skin General skin exam: elasticity normal, turgor normal and dry skin Neuro General: patient oriented x3 Psych Appearance: grossly normal Mental Status: mental status grossly normal Speech and movement: Normal speech and movement present Assessment & Plan Assessment & Plan (1) Constipation: Code(s): K59.00 - Constipation, unspecified Qualifiers: Constipation type: chronic idiopathic constipation Qualified Code(s): K59.04 - Chronic idiopathic constipation Plan: Patient will start taking MiraLax in the morning with water throughout the day. List of food high in fiber given to patient. Patient will take Senokot and Colace in the evening. Discussed with patient the importance of drinking plenty fluids and increasing activity to promote better bowel motility. (2) Diverticulosis: Code(s): K57.90 - Diverticulosis of intestine, part unspecified, without perforation or abscess without bleeding Plan: Information on diet for diverticulosis given to patient. Patient can take probiotics. I will see patient in 6 months, sooner on as needed basis. Patient is agreeable to this plan and verbalizes understanding of instructions. She was given the opportunity to ask questions and all questions answered. Thank you for allowing me to participate in her care Coding Level of Care Code Est Pt Level 3 (18936) Diagnoses Constipation K59.04 Constipation type: chronic idiopathic constipation Diverticulosis K57.90 Time Spent (min) 30 Comment 20 minutes spent with patient and additional 10 minutes spent reviewing her records
[2022-12-13 12:57] VITALS: BP 142/67; PULSE 73; BMI 22.1
== END 2022-12-13 13:32 | disposition home or self-care (01) ==
PROVIDERS: Visit Provider Nurse Practitioner Family
DX: K59.04 Chronic idiopathic constipation (principal); K57.90 Diverticulosis of intestine, part unspecified, without perforation or abscess without bleeding
CPT/HCPCS: 99213

== ENCOUNTER → 2022-12-13 12:44 | Outpatient (BNVA) | payer MEDICARE, SELFPAY | PROVIDERS: Visit Provider Nurse Practitioner Family | DX: K59.04 Chronic idiopathic constipation (principal); K57.90 Diverticulosis of intestine, part unspecified, without perforation or abscess without bleeding | CPT/HCPCS: 99212 ==

== ENCOUNTER 2022-12-30 09:09 | Outpatient (AMB) | payer MEDICARE, SELFPAY ==
[2022-12-30 09:17] VITALS: BP 138/76; PULSE 74; O2SAT 98; BMI 22.0
--- NOTE | 2022-12-30 09:17 | MHC.PC.OV ---
Vital Signs 12/30/22 09:17 Height 5 ft 5 in Weight 132 lb BMI 22.0 BP 138/76 Blood Pressure Location Lt brachial Position Sitting Pulse 74 Pulse Source Pulse Oximeter Pulse Oximetry (%) 98 Oxygen Delivery Method Room Air Intake Visit Reasons: fall hit head on vacuum ,lump on right hip Allergies aspirin [ASPIRIN] Allergy (Severe, Verified 12/13/22 12:58) ANAPHYLAXIS codeine [CODEINE] Allergy (Severe, Verified 12/13/22 12:58) ANAPHYLAXIS, itching naproxen [NAPROXEN] Allergy (Severe, Verified 12/13/22 12:58) ANAPHYLAXIS NSAIDS (Non-Steroidal Anti-Inflamma [NSAIDS (NON-STEROIDAL ANTI-INFLAMMA] Allergy (Severe, Verified 12/13/22 12:58) ANAPHYLAXIS (STATES CAN TAKE IBUPROFEN) doxycycline [DOXYCYCLINE] Allergy (Unknown, Verified 12/13/22 12:58) RASH ranitidine [From ZANTAC] Allergy (Unknown, Verified 12/13/22 12:58) UNKNOWN sertraline [From ZOLOFT] Allergy (Unknown, Verified 12/13/22 12:58) FELT LIKE I WAS ON FIRE Sulfa (Sulfonamide Antibiotics) [SULFA (SULFONAMIDE ANTIBIOTICS)] Allergy (Unknown, Verified 12/13/22 12:58) UNKNOWN Tobacco use date assessed: 06/08/22 Fall risk assessment: 1 Fall in past year Last assessed Fall Risk: 12/30/22 Dental Screening Dental Screen Date: 12/30/22 Did you have a dental visit in the last 12 months?: Yes Did you have a dental problem in the last 6 months where you did not have access to dental care?: No Was dental information given to patient?: Patient has dentist HPI HPI Comments History of Present Illness Details 82-year-old female past medical history significant for COPD, hypercholesteremia, generalized anxiety disorder, constipation. Patient last seen in November. Review of the notes patient currently following with gastroenterology for constipation in history of diverticulitis. Senokot was added to patient's bowel regimen and was recommended to increase fluid intake. Patient presents today after sustaining a fall hitting head on plastic piece of vacuum and lump right hip. Patient reports was walking to go into the house and missed the step. Denies LOC and syncope. State fell and hit right side head on vacuum grounds cleaner. Patient has small healing ecchymosis to right frontal lobe. Patient also reports lumbar back soreness since the fall as well as right hip pain with a large purple ecchymosis noted to right buttock. Head CT deferred this time as patient denies loss of consciousness, headaches, confusion, nausea and vomiting. Will obtain lumbar spine x-ray as well as right hip and pelvis x-ray to rule out acute injury. Patient reports taking Tylenol as needed with relief of soreness. [facility] Medical History Allergic rhinitis Diverticulitis Generalized anxiety disorder History of diverticulitis Hypercholesterolemia Insomnia Osteoarthritis, knee Osteopenia Pulmonary nodule Small bowel obstruction Surgical History History of bilateral cataract extraction History of cataract surgery History of colonoscopy History of tonsillectomy History of tonsillectomy Family History Father Obesity Stroke Mother Afib Son Diabetes Father No problems noted. Mother No problems noted. Son No problems noted. Social History Housing: House Alcohol intake: current Alcohol intake frequency: holidays/special occasions only Alcohol type: wine Patient Tobacco Use Status: Former Tobacco user Tobacco use type: Cigarette e-Cigarette/Vaping Use: Never Used Second Hand Smoke Exposure: Yes service: No Current occupational status: retired Cognitive needs: No Hearing needs: No Vision needs: Yes (reading glasses) Questionnaire PHQ-9 Over the last 2 weeks, how often have you been bothered by any of the following problems? 1. Little interest or pleasure in doing things: not at all 2. Feeling down, depressed, or hopeless: not at all 3. Trouble falling or staying asleep, or sleeping too much: not at all 4. Feeling tired or having little energy: not at all 5. Poor appetite or overeating: not at all 6. Feeling bad about yourself - or that you are a failure or have let yourself or your family down: not at all 7. Trouble concentrating on things, such as reading the newspaper or watching television: not at all 8. Moving or speaking so slowly that other people could have noticed. Or the opposite - being so fidgety or restless that you have been moving around a lot more than usual: not at all 9. Thoughts that you would be better off or of hurting yourself in some way: not at all Total score: 0 Depression Screening Interpretation: Negative Source: Developed by Drs. Boubacar Valdez, Connie Ma, Anthony Coleman and colleagues, with an educational swathi from [employer]. Thrive Questionnaire Date Thrive assessed: 06/08/22 AUDIT C Alcohol Use Questionnaire (AUDIT-C) 1. How often do you have a drink containing alcohol?: Never Total Score: 0 Score Reviewed/Action Taken: No EUSEBIA-7 AMB Questionnaire EUSEBIA-7 Date EUSEBIA - 7 assessed: 06/08/22 Source: Developed by Drs. Boubacar Valdez, Connie Ma, Anthony Coleman and colleagues, with an educational swathi from [employer]. Review of Systems Const Denies chills, Denies fatigue, Denies fever(s) and Denies poor appetite Eyes Denies no additional complaints ENT Reports Normal hearing present Card Denies chest pain, Denies syncope, Denies rapid heart rate and Denies dyspnea Resp Denies cough and Denies dyspnea GI Denies change in stool character, Denies constipation, Denies diarrhea, Denies nausea and Denies vomiting Denies urinary frequency, Denies dysuria and Denies urinary urgency Neuro Reports Normal hearing present, Denies confusion and Denies syncope Psych Denies confusion Endo Denies fatigue Physical exam (Primary Care) Vital Signs: Last Vital Signs Pulse 74 12/30/22 09:17 BP 138/76 12/30/22 09:17 Pulse Ox 98 12/30/22 09:17 Oxygen Delivery Method Room Air 12/30/22 09:17 BMI result Body Mass Index 22.0 Tobacco/Smoking Status: Tobacco use Status Tobacco use date assessed 06/08/22 12/30/22 09:23 Patient Tobacco Use Status Former Tobacco user 12/30/22 09:23 Tobacco use type Cigarette 12/30/22 09:23 e-Cigarette/Vaping Use Never Used 12/30/22 09:23 PHQ-9: PHQ-9 Score PHQ-9: Total score 0 12/30/22 09:33 Depression Screening Interpretation: Negative Thrive Assessment: Date of Thrive Assessment Date Thrive assessed 06/08/22 12/30/22 09:23 Const General: No confusion Orientation/consciousness: No confusion HENMT Head: Yes normocephalic and Yes atraumatic Head images: 1. Light purple/yellowish healing ecchymosis noted to right frontal lobe. Eyes Conjunctivae: conjunctivae normal Chest Chest palpation & inspection: normal inspection of the chest Resp Effort & Inspection: normal respiratory effort Auscultation: clear to auscultation bilaterally, no crackles, no rhonchi and no wheezes Cardio Rate: regular rate Rhythm: regular rhythm Heart sounds: S1 normal heart sound present and S2 normal heart sound present GI Inspection: Yes normal to inspection Back/Spine/Pelvis Back/spine/pelvis image: 1. Large dark purple ecchymosis noted to right buttock. Neuro General: No confusion Cranial nerves: Yes Normal hearing present Extrem General: No edema Assessment and Plan Assessment & Plan (1) Lumbar back pain: Code(s): M54.50 - Low back pain, unspecified Plan: Lumbar spine x-ray ordered. Can continue to take Tylenol as needed for pain as patient is allergic to NSAIDs. And can apply ice/heat to the area (2) Right hip pain: Code(s): M25.551 - Pain in right hip Plan: Right hip and pelvis x-rays ordered to rule out acute injury can take Tylenol as needed for pain. Plan Keep scheduled follow-up with PCP or follow-up sooner if needed. Orders: Orders XR pelvis min 3V Today M25.551 - Pain in right hip XR lumbar spine 2-3V Today M54.50 - Low back pain, unspecified XR hip RT min 2V Today M25.551 - Pain in right hip Coding Level of Care Code Est Pt Level 3 (37719) Diagnoses Lumbar back pain M54.50 Right hip pain M25.551 Additional Codes PHQ-9 - 11953 - PHQ-9 Billing: Y ([id number])
== END 2022-12-30 09:46 | disposition home or self-care (01) ==
PROVIDERS: PCP Internal Medicine; Visit Provider Nurse Practitioner Family
DX: M54.50 Low back pain, unspecified (principal); M25.551 Pain in right hip
CPT/HCPCS: 99213

== ENCOUNTER 2022-12-30 09:51 | Outpatient (REF) | payer MEDICARE, SELFPAY ==
--- NOTE | ~2022-12-30 | XR_ITS ---
EXAMINATION: XR LUMBOSACRAL SPINE WITH OBLIQUES CLINICAL INFORMATION: Low back pain COMPARISON: 06/27/2016; CT 05/20/2022 TECHNIQUE: AP and lateral views of the lumbar spine. Lateral view of the lumbosacral junction. FINDINGS: Mineralization is normal. There is no vertebral fracture or malalignment. Posterior elements are intact. There is mild disc space narrowing through the lumbar region above L5 with minimal endplate degenerative change. Moderate disc disc space narrowing is seen at L5-S1 with endplate sclerosis and mild marginal osteophyte. There is hypertrophic degenerative facet arthropathy throughout the lumbar spine. The paraspinal soft tissues appear unremarkable. Note is made of small calculi in the right upper quadrant consistent with gallstones. XR/XR pelvis min 3V IMPRESSION: Degenerative disc and facet disease appears stable. No fracture or other acute abnormality is evident. Cholelithiasis. EXAMINATION: XR PELVIS CLINICAL INFORMATION: Right hip pain COMPARISON: 06/23/2017 TECHNIQUE: 3 views of the pelvis. FINDINGS: No fracture. Hip joint spaces are maintained. Alignment is anatomic. Sacroiliac joints and pubic symphysis are normal. No abnormal soft tissue calcifications. IMPRESSION: Normal pelvis. EXAMINATION: XR HIP, RIGHT CLINICAL INFORMATION: Right hip pain COMPARISON: Correlation is made with pelvis radiographs and comparison is made with examination dated 03/20/2016 TECHNIQUE: Two views of the right hip. FINDINGS: No fracture. Alignment is anatomic. Hip joint space is maintained. Soft tissues are unremarkable. IMPRESSION: Normal right hip.
--- NOTE | ~2022-12-30 | XR_ITS ---
EXAMINATION: XR LUMBOSACRAL SPINE WITH OBLIQUES CLINICAL INFORMATION: Low back pain COMPARISON: 06/27/2016; CT 05/20/2022 TECHNIQUE: AP and lateral views of the lumbar spine. Lateral view of the lumbosacral junction. FINDINGS: Mineralization is normal. There is no vertebral fracture or malalignment. Posterior elements are intact. There is mild disc space narrowing through the lumbar region above L5 with minimal endplate degenerative change. Moderate disc disc space narrowing is seen at L5-S1 with endplate sclerosis and mild marginal osteophyte. There is hypertrophic degenerative facet arthropathy throughout the lumbar spine. The paraspinal soft tissues appear unremarkable. Note is made of small calculi in the right upper quadrant consistent with gallstones. XR/XR lumbar spine 2-3V IMPRESSION: Degenerative disc and facet disease appears stable. No fracture or other acute abnormality is evident. Cholelithiasis. EXAMINATION: XR PELVIS CLINICAL INFORMATION: Right hip pain COMPARISON: 06/23/2017 TECHNIQUE: 3 views of the pelvis. FINDINGS: No fracture. Hip joint spaces are maintained. Alignment is anatomic. Sacroiliac joints and pubic symphysis are normal. No abnormal soft tissue calcifications. IMPRESSION: Normal pelvis. EXAMINATION: XR HIP, RIGHT CLINICAL INFORMATION: Right hip pain COMPARISON: Correlation is made with pelvis radiographs and comparison is made with examination dated 03/20/2016 TECHNIQUE: Two views of the right hip. FINDINGS: No fracture. Alignment is anatomic. Hip joint space is maintained. Soft tissues are unremarkable. IMPRESSION: Normal right hip.
--- NOTE | ~2022-12-30 | XR_ITS ---
EXAMINATION: XR LUMBOSACRAL SPINE WITH OBLIQUES CLINICAL INFORMATION: Low back pain COMPARISON: 06/27/2016; CT 05/20/2022 TECHNIQUE: AP and lateral views of the lumbar spine. Lateral view of the lumbosacral junction. FINDINGS: Mineralization is normal. There is no vertebral fracture or malalignment. Posterior elements are intact. There is mild disc space narrowing through the lumbar region above L5 with minimal endplate degenerative change. Moderate disc disc space narrowing is seen at L5-S1 with endplate sclerosis and mild marginal osteophyte. There is hypertrophic degenerative facet arthropathy throughout the lumbar spine. The paraspinal soft tissues appear unremarkable. Note is made of small calculi in the right upper quadrant consistent with gallstones. XR/XR hip RT min 2V IMPRESSION: Degenerative disc and facet disease appears stable. No fracture or other acute abnormality is evident. Cholelithiasis. EXAMINATION: XR PELVIS CLINICAL INFORMATION: Right hip pain COMPARISON: 06/23/2017 TECHNIQUE: 3 views of the pelvis. FINDINGS: No fracture. Hip joint spaces are maintained. Alignment is anatomic. Sacroiliac joints and pubic symphysis are normal. No abnormal soft tissue calcifications. IMPRESSION: Normal pelvis. EXAMINATION: XR HIP, RIGHT CLINICAL INFORMATION: Right hip pain COMPARISON: Correlation is made with pelvis radiographs and comparison is made with examination dated 03/20/2016 TECHNIQUE: Two views of the right hip. FINDINGS: No fracture. Alignment is anatomic. Hip joint space is maintained. Soft tissues are unremarkable. IMPRESSION: Normal right hip.
== END 2022-12-30 09:52 | disposition home or self-care (01) ==
LOC: HO.XRAY 09:51
PROVIDERS: PCP Internal Medicine; Visit Provider Nurse Practitioner Family
DX: M54.50 Low back pain, unspecified (principal); M25.551 Pain in right hip
CPT/HCPCS: 72100; 72190; 73502

== ENCOUNTER 2023-01-03 11:01 | Outpatient (REF) | payer MEDICARE, SELFPAY ==
--- NOTE | ~2023-01-03 | XR_ITS ---
EXAMINATION: XR CERVICAL SPINE CLINICAL INFORMATION: Neck pain. COMPARISON: Cervical spine radiographs dated 07/21/2021. TECHNIQUE: 3 views of the cervical spine were obtained. FINDINGS: There is normal cervical lordosis and spinal alignment. The vertebral bodies are intact. Mild to moderate degenerative disc disease is seen at C5-C6 with disc space narrowing and marginal osteophyte formation. There is no acute fracture. The odontoid process is intact with the soft tissues are unremarkable. XR/XR cervical spine 2V IMPRESSION: C5-C6 mild to moderate degenerative disc disease without significant change. No acute abnormality.
== END 2023-01-03 11:02 | disposition home or self-care (01) ==
LOC: HO.XRAY 11:01
PROVIDERS: PCP Internal Medicine; Visit Provider Nurse Practitioner Family
DX: M54.2 Cervicalgia (principal)
CPT/HCPCS: 72040

== ENCOUNTER 2023-02-01 14:53 | Outpatient (AMB) | payer MEDICARE, SELFPAY ==
--- NOTE | 2023-02-01 14:58 | A.OFFPC_ITS ---
Vital Signs 3 02/01/23 15:01 Height 5 ft 5 in Weight 129 lb 2 oz BMI 21.5 BP 142/82 H Blood Pressure Location Lt brachial Position Sitting Pulse 88 Pulse Source Pulse Oximeter Pulse Oximetry (%) 98 Oxygen Delivery Method Room Air Intake Visit Reasons: bug bite on left knee Intake Note: Pt is here for bug bite on left knee and one on the right side back. [facility] [employer] [facility] Required: No Accompanied by: Friend Allergies aspirin [ASPIRIN] Allergy (Severe, Verified 02/01/23 15:08) ANAPHYLAXIS codeine [CODEINE] Allergy (Severe, Verified 02/01/23 15:08) ANAPHYLAXIS, itching naproxen [NAPROXEN] Allergy (Severe, Verified 02/01/23 15:08) ANAPHYLAXIS NSAIDS (Non-Steroidal Anti-Inflamma [NSAIDS (NON-STEROIDAL ANTI-INFLAMMA] Allergy (Severe, Verified 02/01/23 15:08) ANAPHYLAXIS (STATES CAN TAKE IBUPROFEN) doxycycline [DOXYCYCLINE] Allergy (Unknown, Verified 02/01/23 15:08) RASH ranitidine [From ZANTAC] Allergy (Unknown, Verified 02/01/23 15:08) UNKNOWN sertraline [From ZOLOFT] Allergy (Unknown, Verified 02/01/23 15:08) FELT LIKE I WAS ON FIRE Sulfa (Sulfonamide Antibiotics) [SULFA (SULFONAMIDE ANTIBIOTICS)] Allergy (Unknown, Verified 02/01/23 15:08) UNKNOWN Medication List - Last Reconciled 02/01/23 by Shai Reza PA-C acetaminophen ER (Tylenol Arthritis Pain) 650 mg PO .Q6 hours PRN 10 days docusate sodium 100 mg PO BEDTIME fluticasone propionate 50 mcg/actuation (Flonase Allergy Relief) 1 spray intranasal DAILY 14 days loratadine (Claritin) 10 mg PO DAILY multivitamin 1 tab PO DAILY psyllium husk 1.04 grams (2 x 0.52 gram) PO DAILY sennosides (Natural Senna Laxative) 17.2 mg (2 x 8.6 mg) PO BEDTIME trazodone 75 mg (1/2 x 150 mg) PO BEDTIME 90 days Tobacco use date assessed: 06/08/22 HPI bug bite on left knee 2 HPI0 Details Patient is an 82-year-old female here today for problem visit. This is the 1st time I am meeting this 82-year-old female whom reports having a bug bite over left knee that has been evident over the last 7 days. Has been using calamine lotion for the itch which has been somewhat helpful. [facility] Medical History Allergic rhinitis Diverticulitis Generalized anxiety disorder History of diverticulitis Hypercholesterolemia Insomnia Osteoarthritis, knee Osteopenia Pulmonary nodule Small bowel obstruction Surgical History History of cataract surgery History of tonsillectomy History of bilateral cataract extraction History of colonoscopy History of tonsillectomy Family History Father Obesity Stroke Mother Afib Son Diabetes Father No problems noted. Mother No problems noted. Son No problems noted. Social History Housing: House Alcohol intake: current Alcohol intake frequency: holidays/special occasions only Alcohol type: wine Patient Tobacco Use Status: Former Tobacco user Tobacco use type: Cigarette e-Cigarette/Vaping Use: Never Used Second Hand Smoke Exposure: Yes service: No Current occupational status: retired Cognitive needs: No Hearing needs: No Vision needs: Yes (reading glasses) Questionnaire Thrive Questionnaire Date Thrive assessed: 06/08/22 EUSEBIA-7 AMB Questionnaire EUSEBIA-7 Date EUSEBIA - 7 assessed: 06/08/22 Source: Developed by Drs. Boubacar Valdez, Connie Ma, Anthony Coelman and colleagues, with an educational swathi from [email or web address]. Review of Systems Const Denies headache(s) Eyes Denies loss of vision ENT Denies vertigo, Denies dizziness, Denies headache(s) and Denies sore throat Card Denies chest pain, Denies leg edema and Denies lightheadedness Resp Denies cough, Denies hemoptysis and Denies wheezing GI Denies abdominal pain, Denies melena, Denies constipation, Denies diarrhea and Denies vomiting Denies urinary frequency, Denies dysuria and Denies urinary urgency Musc Denies arthralgias, Denies joint swelling, Denies numbness and Denies tingling Neuro Denies Abnormal speech present, Denies behavioral changes, Denies vertigo, Denies dizziness, Denies headache(s), Denies loss of vision, Denies memory loss, Denies numbness and Denies tingling Psych Denies anxiety, Denies behavioral changes, Denies depression, Denies memory loss and Denies panic attacks Gamaliel/Lymph Denies easy bleeding and Denies easy bruising Aller/Immun Denies wheezing Physical exam (Primary Care) Vital Signs: Last Vital Signs Pulse 88 02/01/23 15:01 BP 142/82 H 02/01/23 15:01 Pulse Ox 98 02/01/23 15:01 Oxygen Delivery Method Room Air 02/01/23 15:01 BMI result Body Mass Index 21.5 Tobacco/Smoking Status: Tobacco use Status Tobacco use date assessed 06/08/22 02/01/23 14:59 Patient Tobacco Use Status Former Tobacco user 02/01/23 14:59 Tobacco use type Cigarette 02/01/23 14:59 e-Cigarette/Vaping Use Never Used 02/01/23 14:59 Thrive Assessment: Date of Thrive Assessment Date Thrive assessed 06/08/22 02/01/23 14:59 Const General: healthy appearing, no acute distress, alert and awake Nutritional Appearance: well nourished Orientation/consciousness: oriented to person, oriented to place and oriented to time HENMT Ears: TM's normal bilaterally General nose exam: Normal nasal mucous membranes and turbinates present Eyes Conjunctivae: conjunctivae normal Sclerae: sclerae normal Pupils: Equal, round and reactive pupils present Neck Neck: Yes no lymphadenopathy and Yes no JVD Thyroid: Thyroid normal Carotids: no bruits Resp Effort & Inspection: normal respiratory effort and not tachypneic Auscultation: no crackles, no rales, no rhonchi and no wheezes Cardio Rate: regular rate Rhythm: regular rhythm Heart sounds: no murmurs and normal S1 and S2 GI Palpation (GI): Soft to palpation, nontender, no hepatomegaly and no splenomegaly Auscultation: normal bowel sounds Skin General skin exam: no rashes or lesions noted and dry skin Neuro General: oriented to person, oriented to place and oriented to time Cranial nerves: Yes Equal, round and reactive pupils present Speech: No Abnormal speech present Gait exam (Neuro): Normal gait present Motor exam (neuro): no tremor noted Extrem Right upper extremity: full ROM Left upper extremity: full ROM Right lower extremity: full ROM; no edema Left lower extremity: full ROM; no edema Knee images: 2 1. SMALL ERYTHEMATOUS REGION OVER MEDIAL ANTERIOR ASPECT OF KNEE. Psych Mental Status: mental status grossly normal Speech and movement: Normal speech and movement present Affect: normal affect Attitude: cooperative Thought process: Normal thought process present Assessment and Plan Assessment & Plan (1) Bug bite: Code(s): W57.XXXA - Bitten or stung by nonvenomous insect and other nonvenomous arthropods, initial encounter Qualifiers: Encounter type: subsequent encounter Qualified Code(s): W57.XXXD - Bitten or stung by nonvenomous insect and other nonvenomous arthropods, subsequent encounter Plan: Patient with with seems to be localized reaction to a bug bite over her left knee. Will supply patient with antibiotic ointment to use twice a day on the area. Medications: New 2 mupirocin 2% 1 appl topical BID 15 days 22 grams 0RF W57.XXXD - Bitten or stung by nonvenomous insect and other nonvenomous arthropods, subsequent encounter Coding Level of Care Code Est Pt Level 3 (71435) Diagnoses Bug bite, subsequent encounter W57.XXXD Encounter type: subsequent encounter
[2023-02-01 15:01] VITALS: BP 142/82; PULSE 88; O2SAT 98; BMI 21.5
== END 2023-02-01 15:23 | disposition home or self-care (01) ==
PROVIDERS: PCP Internal Medicine; Visit Provider Physician Assistant
DX: S80.262A Insect bite (nonvenomous), left knee, initial encounter (principal); W57.XXXD Bitten or stung by nonvenomous insect and other nonvenomous arthropods, subsequent encounter
CPT/HCPCS: 99213

== ENCOUNTER 2023-02-02 08:00 | Outpatient (RCR) | payer MEDICARE, SELFPAY ==
--- NOTE | 2022-12-14 15:30 | MHC.PT.EP ---
[facility] [place] Office [place] Office [place] Office [address] Suri Gan [address] [phone] F: [phone] F: [phone] F: [phone] F: [phone] Physical Therapy Plan of Care Date of Evaluation: Date of Surgery: Diagnosis: HAMSTRING TENDINITIS LEFT THIGH Assessment: 82 YO FEMALE REF TO PT WITH Lt LATERAL KNEE/ ITB/HS PAIN SINCE APPROX 11/05/22-> SHE DENIES TRAUMA. SHE NOTES SHE HAS NOT EXER OR USED A TREADMILL SINCE PRE-COVID TIMES. 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 FUNCTIONALLY, THE Pt HAS DECR VELIA TO AMB/ SHOPPING, DECR STANDING VELIA, DIFFIC W STAIR NAVIGATION, AND DIFFIC SLEEPING-> SHE HAS TO SLEEP IN SL DUE TO KNEE EXT DEFICITS. SHE WOULD BENEFIT FROM PT TO ADDRESS THE ABOVE MECHANICAL/ SOFT TISSUE TIGHTNESS AND PROX LEs WEAKNESS TO ENHANCE MAXIMAL FUNCTIONAL INDEPENDENCE. Frequency and Duration: The patient will be seen 2 x WK x 4 WKS Short Term Goals: *IMPROVE ACTIVE TERMINAL KNEE EXT. BILAT *INITIATE HEP *INCREASE ANKLE AND HIP FLEXIBILITY Safety And Health Manager Goals: *INDEP HEP *Pt DEMON INDEP, EFFICIENT GAIT MECH W RESPECT TO GENU VALGUS COLLAPSE *LEs STRENGTH INCR BY 1/2-1 GRADE Treatment Plan: Modalities to reduce pain, spasms and effusion. Manual therapy to restore motion and function. Therapeutic exercise to improve strength and flexibility. Neuromuscular re-education for posture and balance. Therapeutic activities to return to functional activities of daily living. Electronically signed by: TRCAY ANTONIO,PT Please sign and return to therapist. Thank you for your referral.
--- NOTE | 2023-02-02 11:13 | MHC.PT.DC ---
[facility] [place] Office [place] Office [place] Office [address] [place] [address] [phone] F: [phone] F: [phone] F: [phone] F: [phone] Physical Therapy Discharge Report Diagnosis: HAMSTRING TENDINITIS LEFT THIGH Date of Surgery: Date of Evaluation: 12/14/22 Date of Discharge: 02/02/23 Treatments to Date: 9 Cancellations to Date: 0 No Shows to Date: 0 Discharge Status: Achieved Goals Improved Function Independent with HEP Patient Elected to Stop Discharge Summary: THE Pt HAS A THOROUGH HEP, ADDRESSING PROGRESSIVE LEs STRENGTHENING AND FLEXIBILITY- WE HAVE EDUC THE Pt RE HEP COMPLIANCY AND ENCOURAGED HER TO VISIT HER LOCAL SENIOR CENTER 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 THE Pt DISPLAYS OVERALL IMPROVED FUNCTIONAL MOBILITY-> TRANSFERS, BED MOBILITY, AND MORE EFFICIENT GAIT MECHANICS. SHE IS D/C'D AT THIS TIME, HAVING MET HER PT GOALS TPO MAX POTENTIAL AT THIS TIME. Electronically signed by: TRACY ANTONIO,PT Please sign and return to therapist. Thank you for your referral.
== END 2023-02-02 11:15 | disposition home or self-care (01) ==
LOC: HO.PT 08:00
PROVIDERS: PCP Internal Medicine; Visit Provider Internal Medicine
DX: M76.892 Other specified enthesopathies of left lower limb, excluding foot (principal)
CPT/HCPCS: 97110; 97162; 97530

== ENCOUNTER 2023-02-23 07:49 | Outpatient (REF) | payer MEDICARE, SELFPAY ==
[2023-02-23 08:03] LABS: MANUAL DIFF FLAG NO
[2023-02-23 08:17] LABS: Basophils Absolute Auto 0.1 X10*3/uL (0.0-0.2); Basophils Percent Auto 1.2 % (0-2); Eosinophils Absolute Auto 0.1 X10*3/uL (0.0-0.4); Eosinophils Percent Auto 2.8 % (0-4); Hematocrit 38.8 % (37.0-47.0); Hemoglobin 13.1 g/dl (12.0-16.0); Imm Gran Abs Auto 0.01 X10*3/uL (0.00-0.03); Imm Gran Pct Auto 0.2 % (0.0-0.4); Lymphocytes Percent Auto 21.9 % (20-40); Mean Corpuscular HGB Conc 33.8 g/dl (31.0-35.0); Mean Corpuscular Hemoglobin 32.4 pg (27.0-33.0); Mean Platelet Volume 9.4 fL (9.4-12.3); Monocytes Absolute Auto 0.5 X10*3/uL (0.1-1.2); Monocytes Percent Auto 11.5 % (2-11); Neutrophils Absolute Auto 2.7 x10*3/uL (2.0-8.3); Neutrophils Percent Auto 62.4 % (45-73); Platelet Count 238 X10*3/uL (160-400); Red Blood Count 4.04 X10*6/uL (4.20-5.50); Red Cell Distribution Width 11.9 % (11.0-16.0); White Blood Count 4.3 X10*3/uL (4.8-10.8)
[2023-02-23 09:08] LABS: Alanine Aminotransferase 15 U/L (0-31); Albumin Level 4.2 g/dL (3.5-5.0); Alkaline Phosphatase 82 U/L (39-117); Anion Gap 16 (12-20); Aspartate Amino Transferase 23 U/L (5-31); Bilirubin Total 0.6 mg/dL (0.0-1.0); Blood Urea Nitrogen 7 mg/dL (9-16); Carbon Dioxide 25 mmol/L (22-29); Chloride 100 mmol/L (96-108); Cholesterol 206 mg/dL (<200); Estimated Glomerular Filt Rate > 60; Free T4 (Free Thyroxine) 1.13 ng/dL (0.71-1.85); Glucose Random 89 mg/dL (60-115); HDL Cholesterol 82 mg/dL (>40); LDL Cholesterol Calculated 112 mg/dL (<100); Potassium 4.6 mmol/L (3.3-5.1); Sodium 136 mmol/L (135-145); Total Protein 6.8 g/dL (6.5-8.0); Triglycerides 63 mg/dL (<150)
[2023-02-23 09:13] LABS: Folate 14.3 ng/mL (> or = 4.0); Vitamin B12 760 pg/mL (200-900)
== END 2023-02-23 07:50 | disposition home or self-care (01) ==
LOC: HO.LAB 07:49
PROVIDERS: PCP Internal Medicine; Visit Provider Internal Medicine
DX: E78.00 Pure hypercholesterolemia, unspecified (principal); E55.9 Vitamin D deficiency, unspecified
CPT/HCPCS: 36415; 80053; 80061; 82306; 82607; 82746; 84439; 84443; 85025

== ENCOUNTER 2023-03-13 15:27 | Outpatient (AMB) | payer MEDICARE, SELFPAY ==
[2023-03-13 15:29] VITALS: BP 150/72; PULSE 74; O2SAT 92; BMI 21.4
--- NOTE | 2023-03-13 15:29 | MHC.PC.OV ---
Vital Signs 03/13/23 15:29 Height 5 ft 5 in Weight 128 lb 8 oz BMI 21.4 BP 150/72 H Blood Pressure Location Lt brachial Position Sitting Pulse 74 Pulse Source Pulse Oximeter Pulse Oximetry (%) 92 Oxygen Delivery Method Room Air Intake Visit Reasons: s/p fall Director Of Product Design Required: No Director Of Teacher Education: Not Required per policy Accompanied by: Self / Same As Patient Allergies aspirin [ASPIRIN] Allergy (Severe, Verified 03/13/23 15:30) ANAPHYLAXIS codeine [CODEINE] Allergy (Severe, Verified 03/13/23 15:30) ANAPHYLAXIS, itching naproxen [NAPROXEN] Allergy (Severe, Verified 03/13/23 15:30) ANAPHYLAXIS NSAIDS (Non-Steroidal Anti-Inflamma [NSAIDS (NON-STEROIDAL ANTI-INFLAMMA] Allergy (Severe, Verified 03/13/23 15:30) ANAPHYLAXIS (STATES CAN TAKE IBUPROFEN) doxycycline [DOXYCYCLINE] Allergy (Unknown, Verified 03/13/23 15:30) RASH ranitidine [From ZANTAC] Allergy (Unknown, Verified 03/13/23 15:30) UNKNOWN sertraline [From ZOLOFT] Allergy (Unknown, Verified 03/13/23 15:30) FELT LIKE I WAS ON FIRE Sulfa (Sulfonamide Antibiotics) [SULFA (SULFONAMIDE ANTIBIOTICS)] Allergy (Unknown, Verified 03/13/23 15:30) UNKNOWN Tobacco use date assessed: 06/08/22 Fall risk assessment: 1 Fall in past year Last assessed Fall Risk: 03/13/23 Dental Screening Dental Screen Date: 03/13/23 Did you have a dental visit in the last 12 months?: No Did you have a dental problem in the last 6 months where you did not have access to dental care?: No Was dental information given to patient?: Patient has dentist HPI s/p fall HPI Details 83-year-old female with COPD hypercholesterolemia generalized anxiety disorder peripheral vascular disease last seen in December 2022 having back pain and hip pain patient is here for follow-up. Review of the notes was here in February 01 for a bug bite on the left knee was given mupirocin. Patient had a fall also was seen minutes practitioner in December 2022 patient had a cervical spine x-ray showing C5-C6 mild to moderate degenerative disc disease without change pelvic x-ray degenerative disc and facet disease stable normal pelvis normal right hip. Patient was also seen by the shooter's helper in December for the constipation problem MiraLax, Senokot and Colace [facility] Medical History (Updated 03/13/23 @ 15:59 by Cole Gee MD) Age-related osteoporosis without current pathological fracture Acute otitis media with effusion of left ear Insomnia History of diverticulitis Osteoarthritis, knee Osteopenia Diverticulitis Small bowel obstruction Hypercholesterolemia Allergic rhinitis Generalized anxiety disorder Pulmonary nodule Insomnia Surgical History History of cataract surgery History of tonsillectomy History of bilateral cataract extraction History of colonoscopy History of tonsillectomy Family History Father Obesity Stroke Mother Afib Son Diabetes Father No problems noted. Mother No problems noted. Son No problems noted. Social History Housing: House Alcohol intake: current Alcohol intake frequency: holidays/special occasions only Alcohol type: wine Patient Tobacco Use Status: Former Tobacco user Tobacco use type: Cigarette e-Cigarette/Vaping Use: Never Used Second Hand Smoke Exposure: Yes service: No Current occupational status: retired Cognitive needs: No Hearing needs: No Vision needs: Yes (reading glasses) Questionnaire Thrive Questionnaire Date Thrive assessed: 06/08/22 EUSEBIA-7 AMB Questionnaire EUSEBIA-7 Date EUSEBIA - 7 assessed: 06/08/22 Source: Developed by Drs. Boubacar Valdez, Connie Ma, Anthony Coleman and colleagues, with an educational wsathi from [employer]. Physical exam (Primary Care) Vital Signs: Last Vital Signs Pulse 74 03/13/23 15:29 BP 150/72 H 03/13/23 15:29 Pulse Ox 92 03/13/23 15:29 Oxygen Delivery Method Room Air 03/13/23 15:29 BMI result Body Mass Index 21.4 Tobacco/Smoking Status: Tobacco use Status Tobacco use date assessed 06/08/22 03/13/23 15:31 Patient Tobacco Use Status Former Tobacco user 03/13/23 15:31 Tobacco use type Cigarette 03/13/23 15:31 e-Cigarette/Vaping Use Never Used 03/13/23 15:31 Thrive Assessment: Date of Thrive Assessment Date Thrive assessed 06/08/22 03/13/23 15:31 Const General: alert; No acute distress Eyes Conjunctivae: conjunctivae normal Resp Auscultation: clear to auscultation bilaterally Cardio Rate: regular rate Rhythm: regular rhythm GI Inspection: Yes normal to inspection Extrem General: Yes normal to inspection and No edema Assessment and Plan Assessment & Plan (1) COPD (chronic obstructive pulmonary disease): Code(s): J44.9 - Chronic obstructive pulmonary disease, unspecified Qualifiers: COPD type: emphysema Emphysema type: panlobular Qualified Code(s): J43.1 - Panlobular emphysema Plan: Stable as the patient is not needing any (2) Hypercholesterolemia: Code(s): E78.00 - Pure hypercholesterolemia, unspecified Plan: Avoid fried foods, chicken skin, eggs, butter margarine, pastries and meat. Be it pork or beef they have a lot of cholesterol LDL goal of less than 130 and triglyceride of less than 150 (3) Generalized anxiety disorder: Code(s): F41.1 - Generalized anxiety disorder Plan: Stable (4) Lumbar back pain: Code(s): M54.50 - Low back pain, unspecified Plan: Keep active and do stretches (5) Constipation: Code(s): K59.00 - Constipation, unspecified Qualifiers: Constipation type: chronic idiopathic constipation Qualified Code(s): K59.04 - Chronic idiopathic constipation Plan: metamucil in am and senna in the evening Three rules for constipation 1. Diet need to have a high fiber diet less of meat 2. Increase oral fluids 3. 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
== END 2023-03-13 16:09 | disposition home or self-care (01) ==
PROVIDERS: PCP Internal Medicine; Visit Provider Internal Medicine
DX: J43.1 Panlobular emphysema (principal); I73.9 Peripheral vascular disease, unspecified; E78.00 Pure hypercholesterolemia, unspecified; M54.50 Low back pain, unspecified; F41.1 Generalized anxiety disorder; K59.04 Chronic idiopathic constipation; M72.2 Plantar fascial fibromatosis
CPT/HCPCS: 99214

== ENCOUNTER 2023-04-06 11:44 | Outpatient (REF) | payer MEDICARE, SELFPAY | END 2023-04-06 11:45 | disposition home or self-care (01) | LOC: HO.MAMMO 11:44 | PROVIDERS: PCP Internal Medicine; Visit Provider Internal Medicine | DX: Z12.31 Encounter for screening mammogram for malignant neoplasm of breast (principal) | CPT/HCPCS: 77063; 77067 ==

== ENCOUNTER → 2023-04-06 12:45 | Outpatient (BNV) | payer MEDICARE, SELFPAY | PROVIDERS: PCP Internal Medicine; Visit Provider Radiology Diagnostic Radiology | DX: Z12.31 Encounter for screening mammogram for malignant neoplasm of breast (principal) | CPT/HCPCS: 77063; 77067 ==

== ENCOUNTER 2023-04-28 11:19 | Outpatient (AMB) | payer MEDICARE, SELFPAY ==
[2023-04-28 11:20] VITALS: BP 138/90; PULSE 80; O2SAT 98; BMI 20.6
--- NOTE | 2023-04-28 11:20 | A.OFFPC_ITS ---
Vital Signs 04/28/23 11:20 Height 5 ft 5 in Weight 124 lb BMI 20.6 BP 138/90 H Blood Pressure Location Lt brachial Position Sitting Pulse 80 Pulse Source Pulse Oximeter Pulse Oximetry (%) 98 Oxygen Delivery Method Room Air Intake Visit Reasons: sores on lips Distribution Driver Required: No Architectural Technician: Not Required per policy Accompanied by: Self / Same As Patient Allergies aspirin [ASPIRIN] Allergy (Severe, Verified 04/28/23 11:21) ANAPHYLAXIS codeine [CODEINE] Allergy (Severe, Verified 04/28/23 11:21) ANAPHYLAXIS, itching naproxen [NAPROXEN] Allergy (Severe, Verified 04/28/23 11:21) ANAPHYLAXIS NSAIDS (Non-Steroidal Anti-Inflamma [NSAIDS (NON-STEROIDAL ANTI-INFLAMMA] Allergy (Severe, Verified 04/28/23 11:21) ANAPHYLAXIS (STATES CAN TAKE IBUPROFEN) doxycycline [DOXYCYCLINE] Allergy (Unknown, Verified 04/28/23 11:21) RASH ranitidine [From ZANTAC] Allergy (Unknown, Verified 04/28/23 11:21) UNKNOWN sertraline [From ZOLOFT] Allergy (Unknown, Verified 04/28/23 11:21) FELT LIKE I WAS ON FIRE Sulfa (Sulfonamide Antibiotics) [SULFA (SULFONAMIDE ANTIBIOTICS)] Allergy (Unknown, Verified 04/28/23 11:21) UNKNOWN Medication List - Last Reconciled 04/28/23 by Chente French MD acetaminophen ER (Tylenol Arthritis Pain) 650 mg PO .Q6 hours PRN 10 days docusate sodium 100 mg PO BEDTIME fluticasone propionate 50 mcg/actuation (Flonase Allergy Relief) 1 spray intranasal DAILY 14 days loratadine (Claritin) 10 mg PO DAILY multivitamin 1 tab PO DAILY mupirocin 2% 1 appl topical BID 15 days psyllium husk 1.04 grams (2 x 0.52 gram) PO DAILY sennosides (Natural Senna Laxative) 17.2 mg (2 x 8.6 mg) PO BEDTIME trazodone 75 mg (1/2 x 150 mg) PO BEDTIME 90 days Tobacco use date assessed: 06/08/22 Fall risk assessment: 1 Fall in past year Last assessed Fall Risk: 04/28/23 Dental Screening Dental Screen Date: 04/28/23 Did you have a dental visit in the last 12 months?: Yes Did you have a dental problem in the last 6 months where you did not have access to dental care?: No Was dental information given to patient?: Patient has dentist HPI sores on lips HPI Details has several spots on buccal mucosa consistent with canker sores PFSH Medical History Age-related osteoporosis without current pathological fracture Acute otitis media with effusion of left ear Insomnia History of diverticulitis Osteoarthritis, knee Osteopenia Diverticulitis Small bowel obstruction Hypercholesterolemia Allergic rhinitis Generalized anxiety disorder Pulmonary nodule Insomnia Surgical History History of cataract surgery History of tonsillectomy History of bilateral cataract extraction History of colonoscopy History of tonsillectomy Family History Father Obesity Stroke Mother Afib Son Diabetes Father No problems noted. Mother No problems noted. Son No problems noted. Social History Housing: House Alcohol intake: current Alcohol intake frequency: holidays/special occasions only Alcohol type: wine Patient Tobacco Use Status: Former Tobacco user Tobacco use type: Cigarette e-Cigarette/Vaping Use: Never Used Second Hand Smoke Exposure: Yes service: No Current occupational status: retired Cognitive needs: No Hearing needs: No Vision needs: Yes (reading glasses) Questionnaire Thrive Questionnaire Date Thrive assessed: 06/08/22 EUSEBIA-7 AMB Questionnaire EUSEBIA-7 Date EUSEBIA - 7 assessed: 06/08/22 Source: Developed by Drs. Boubacar Valdez, Connie Ma, Anthony Coleman and colleagues, with an educational swathi from [employer]. Review of Systems Const Denies chills, Denies headache(s) and Denies weight loss ENT Denies headache(s) Card Denies chest pain, Denies syncope, Denies irregular heart rhythm and Denies dyspnea Resp Denies chest congestion, Denies cough and Denies dyspnea GI Denies abdominal pain, Denies change in stool character, Denies nausea and Denies vomiting Musc Denies deformity and Denies joint swelling Neuro Denies syncope and Denies headache(s) Physical exam (Primary Care) Vital Signs: Last Vital Signs Pulse 80 12/22/23 11:20 BP 138/90 H 04/28/23 11:20 Pulse Ox 98 04/28/23 11:20 Oxygen Delivery Method Room Air 04/28/23 11:20 BMI result Body Mass Index 20.6 Tobacco/Smoking Status: Tobacco use Status Tobacco use date assessed 06/08/22 04/28/23 11:21 Patient Tobacco Use Status Former Tobacco user 04/28/23 11:21 Tobacco use type Cigarette 04/28/23 11:21 e-Cigarette/Vaping Use Never Used 04/28/23 11:21 Thrive Assessment: Date of Thrive Assessment Date Thrive assessed 06/08/22 04/28/23 11:21 Const General: cooperative, comfortable, no acute distress and alert Neck Neck: Yes no lymphadenopathy Thyroid: Thyroid normal Resp Effort & Inspection: normal respiratory effort Auscultation: clear to auscultation bilaterally Percussion: percussion normal Cardio Jugular venous distension: no JVD Palpation: normal PMI Rate: regular rate Rhythm: regular rhythm Heart sounds: S1 normal heart sound present and S2 normal heart sound present GI Inspection: Yes normal to inspection Palpation (GI): No hepatosplenomegaly present Skin General skin exam: no rashes or lesions noted Extrem General: Yes no clubbing, cyanosis or edema Assessment and Plan Assessment & Plan (1) 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
== END 2023-04-28 11:33 | disposition home or self-care (01) ==
PROVIDERS: PCP Internal Medicine; Visit Provider Internal Medicine
DX: K12.0 Recurrent oral aphthae (principal)
CPT/HCPCS: 99213

== ENCOUNTER 2023-05-25 08:25 | Outpatient (AMB) | payer MEDICARE, SELFPAY ==
[2023-05-25 08:38] VITALS: BP 156/84; PULSE 76; O2SAT 100
--- NOTE | 2023-05-25 08:38 | A.OFFVIS_ITS ---
Intake Vital Signs 3 05/25/23 08:38 Height 5 ft 5 in Weight 120 lb 0.6 oz BMI 20.0 BP 156/84 H Blood Pressure Location Lt brachial Position Sitting Pulse 76 Pulse Source Pulse Oximeter Pulse Oximetry (%) 100 Oxygen Delivery Method Room Air Intake Visit Reasons: AWV [id number] Donor Services Team Leader Required: No Allergies aspirin [ASPIRIN] Allergy (Severe, Verified 05/25/23 08:39) ANAPHYLAXIS codeine [CODEINE] Allergy (Severe, Verified 05/25/23 08:39) ANAPHYLAXIS, itching naproxen [NAPROXEN] Allergy (Severe, Verified 05/25/23 08:39) ANAPHYLAXIS NSAIDS (Non-Steroidal Anti-Inflamma [NSAIDS (NON-STEROIDAL ANTI-INFLAMMA] Allergy (Severe, Verified 05/25/23 08:39) ANAPHYLAXIS (STATES CAN TAKE IBUPROFEN) doxycycline [DOXYCYCLINE] Allergy (Unknown, Verified 05/25/23 08:39) RASH ranitidine [From ZANTAC] Allergy (Unknown, Verified 05/25/23 08:39) UNKNOWN sertraline [From ZOLOFT] Allergy (Unknown, Verified 05/25/23 08:39) FELT LIKE I WAS ON FIRE Sulfa (Sulfonamide Antibiotics) [SULFA (SULFONAMIDE ANTIBIOTICS)] Allergy (Unknown, Verified 05/25/23 08:39) UNKNOWN Medication List - Last Reconciled 05/25/23 by Cole Gee MD acetaminophen ER (Tylenol Arthritis Pain) 650 mg PO .Q6 hours PRN 10 days blood pressure monitor (Blood Pressure Kit) As directed docusate sodium 100 mg PO BEDTIME fluticasone propionate 50 mcg/actuation (Flonase Allergy Relief) 1 spray intranasal DAILY 14 days loratadine (Claritin) 10 mg PO DAILY multivitamin 1 tab PO DAILY mupirocin 2% 1 appl topical BID 15 days psyllium husk 1.04 grams (2 x 0.52 gram) PO DAILY sennosides (Natural Senna Laxative) 17.2 mg (2 x 8.6 mg) PO BEDTIME trazodone 75 mg (1/2 x 150 mg) PO BEDTIME 90 days Fall Risk Assessment Fall risk assessment: 1 Fall in past year Date Fall Risk Assessed: 05/25/23 HPI AWV G0438 2 HPI0 Details 83-year-old female with a history of [employer] D hypercholesterolemia generalized anxiety disorder coming in for annual well visit last seen in March 2023. Patient says bone density is up-to-date May 2022 colonoscopy last 1 was February 2014 and the mammogram is up-to-date. Seen in April for aphthous stomatitis treated with acyclovir. fall aleks -middle of night - went to bathroom. , summer daytime middle of afternoom , slippers steps- bruise R hip area. r breast pain lasted minutes but states , R gluteal area - states better, cough PFS Medical History (Updated 05/25/23 @ 18:53 by Cole Gee MD) Aphthous stomatitis Plantar fasciitis of left foot Bug bite Right hip pain Hip pain Hamstring tendinitis of left thigh Cholelithiasis Diverticulitis Left flank pain Left leg swelling Claudication Left leg pain Neck pain Blocked ear Neck pain Impacted cerumen of left ear Age-related osteoporosis without current pathological fracture Acute otitis media with effusion of left ear Insomnia History of diverticulitis Osteoarthritis, knee Osteopenia Diverticulitis Small bowel obstruction Hypercholesterolemia Allergic rhinitis Generalized anxiety disorder Pulmonary nodule Insomnia Surgical History History of cataract surgery History of tonsillectomy History of bilateral cataract extraction History of colonoscopy History of tonsillectomy Family History Father Obesity Stroke Mother Afib Son Diabetes Father No problems noted. Mother No problems noted. Son No problems noted. Social History (Updated 05/25/23 @ 09:22 by Cole Gee MD) Housing: House Alcohol intake: current Alcohol intake frequency: holidays/special occasions only Alcohol type: wine Comment: holidays 1 drink Patient Tobacco Use Status: Former Tobacco user Tobacco use type: Cigarette Years Smoked: 2012 stopped e-Cigarette/Vaping Use: Never Used Second Hand Smoke Exposure: Yes service: No Current occupational status: retired Cognitive needs: No Hearing needs: No Vision needs: Yes (reading glasses) Questionnaire Medicare Wellness Checkup [age] What gender do you identify with?: female During the past 4 weeks, how much have you been bothered by emotional problems such as feeling anxious, depressed, irritable, sad or downhearted, and blue?: n ot at all During the past 4 weeks, has your physical & emotional health limited your social activities with family, friends, neighbors, or groups?: not at all During the past 4 weeks, how much bodily pain have you generally had?: very mild pain During the past 4 weeks, was someone available to help you if you needed & wanted help?: yes, as much as I wanted During the past 4 weeks, what was the hardest physical activity you could do for at least 2 minutes?: very light Can you get to places out of walking distance without help? (For eg., can you travel alone on buses, taxis or drive your car?): Yes Can you go shopping for groceries or clothes without someone's help?: Yes Can you prepare your own meals?: No Can you do your housework without help?: Yes Because of any health problems, do you need the help of another person with your personal care needs such as eating, bathing, dressing or getting around the house?: No Can you handle your own money without help?: Yes During the past 4 weeks, how would you rate your health in general?: good During the past 4 weeks how have things been going for you?: pretty well Are you having difficulties driving your car?: not applicable, I don't use a car Do you always fasten your seat belt when you are in a car?: yes, usually During past 4 weeks, have you been bothered by the following: never: Falling or dizzy when standing up, Sexual problems?, Trouble eating well?, Teeth or denture problems?, Problems using the telephone? and Tiredness or fatigue? Have you fallen 2 or more times in the past year?: Yes Are you afraid of falling?: No Are you a smoker?: no During the past 4 weeks, how many drinks of wine, beer, or other alcoholic beverages did you have?: no alcohol at all Do you exercise for about 20 minutes 3 or more times a week?: no, I usually do not exercise this much Have you been given information to help with the following?: no: Hazards in your house that might hurt you? and no: Keeping track of your medications? How often do you have trouble taking medicines the way you have been told to take them?: I always take medicine as prescribed How confident are you that you can control & manage most of your health problems?: very confident What is your race?: White PHQ-9 Over the last 2 weeks, how often have you been bothered by any of the following problems? 1. Little interest or pleasure in doing things: not at all 2. Feeling down, depressed, or hopeless: not at all 3. Trouble falling or staying asleep, or sleeping too much: not at all 4. Feeling tired or having little energy: not at all 5. Poor appetite or overeating: not at all 6. Feeling bad about yourself - or that you are a failure or have let yourself or your family down: not at all 7. Trouble concentrating on things, such as reading the newspaper or watching television: not at all 8. Moving or speaking so slowly that other people could have noticed. Or the opposite - being so fidgety or restless that you have been moving around a lot more than usual: not at all 9. Thoughts that you would be better off or of hurting yourself in some way: not at all Total score: 0 Depression Screening Interpretation: Negative Depression Screening Done: Yes Source: Developed by Drs. Boubacar Valdez, Anthony Mathew and colleagues, with an educational swathi from [email or web address]. EUSEBIA-7 AMB Questionnaire EUSEBIA-7 Date EUSEBIA - 7 assessed: 05/25/23 Feeling nervous, anxious, or on edge: 0 = Not at all Not being able to stop or control worryin = Not at all Worrying too much about different things: 0 = Not at all Trouble relaxin = Not at all Being so restless that it is hard to sit still: 0 = Not at all Becoming easily annoyed or irritable: 0 = Not at all Feeling afraid as if something awful might happen: 0 = Not at all Total EUSEBIA-7 score (0-4 normal; 5-9 mild; 10-14 moderate; 15-21 severe): 0 Source: Developed by Drs. Boubacar Valdez, Anthony Mathew and colleagues, with an educational swathi from [email or web address]. AUDIT C Alcohol Use Questionnaire (AUDIT-C) 1. How often do you have a drink containing alcohol?: Never Total Score: 0 Score Reviewed/Action Taken: No Thrive Questionnaire Date Thrive assessed: 05/25/23 I am a: Patient What is your living situation today?: I have a steady place to live Within the past 12 months, did the food you bought not last and you didn't have the money to get more?: Never true Within the past 12 months, did you worry whether your food would run out before you got money to buy more?: Never true Do you have trouble paying for medicines?: No Do you have trouble getting transportation to medical appointments?: No Do you have trouble paying your heating and electricity bill?: No Do you have trouble taking care of your child, family member or friend?: No Do you have trouble with day-to-day activities such as bathing, preparing meals, shopping, managing finances, etc.?: No Are you currently unemployed and looking for a job?: No Are you interested in more education?: No Review of Systems Const Denies poor appetite and Denies weakness Eyes Denies no additional complaints ENT Reports Normal hearing present, Denies dizziness, Denies nasal congestion, Denies tinnitus and Denies sore throat Card Denies chest pain, Denies syncope, Denies rapid heart rate and Denies dyspnea Resp Denies cough and Denies dyspnea GI Denies change in stool character, Reports constipation, Denies diarrhea, Denies nausea and Denies vomiting Denies urinary frequency, Denies difficulty voiding and Denies dysuria Neuro Reports Normal hearing present, Denies confusion, Denies dizziness, Denies syncope and Denies weakness Psych Denies confusion Physical Exam Vital Signs: Last Vital Signs Pulse 76 05/25/23 08:38 BP 156/84 H 05/25/23 08:38 Pulse Ox 100 05/25/23 08:38 Oxygen Delivery Method Room Air 05/25/23 08:38 BMI result Body Mass Index 20.0 Const General: No confusion Orientation/consciousness: No confusion HEENT Head: Yes normocephalic Ears: external ears normal and TM's normal bilaterally Face and sinus: Yes normal facial exam Mouth: moist mucous membranes Throat: Yes tonsils normal Eyes Conjunctivae: conjunctivae normal Pupils: Equal, round and reactive pupils present and Pupil accommodation reflex normal Direct Ophthalmoscopy: normal light reflex Neck Neck: No lymphadenopathy Thyroid: Thyroid normal Chest Chest palpation & inspection: normal inspection of the chest Resp Effort & Inspection: normal respiratory effort and no audible wheezes Auscultation: clear to auscultation bilaterally, no crackles, no wheezes and lung sounds not diminished Cardio Rate: regular rate Rhythm: regular rhythm Peripheral pulses: radial pulses present and dorsalis pedis present GI Other: guaiac negative 1 cm scabbed wound R intergluteal area Palpation (GI): no masses Auscultation: normal bowel sounds and normoactive bowel sounds Back/Spine/Pelvis Back/spine/pelvis image: 2 1. 1 cm scabbed wound with mild erythema Skin General skin exam: no rashes or lesions noted Rashes: no rashes Neuro General: No confusion Cranial nerves: Yes Equal, round and reactive pupils present and Yes Normal hearing present Cognition (Neuro): normal cognition Gait exam (Neuro): Normal gait present Motor exam (neuro): 5/5 motor strength present throughout Deep tendon reflexes (DTR's): Right brachioradialis reflex intensity grade: 2+, Left brachioradialis reflex intensity grade: 2+, Right patellar reflex intensity grade: 2+ and Left patellar reflex intensity grade: 2+ Extrem General: No edema Assessment & Plan Assessment & Plan (1) Medicare annual wellness visit, subsequent: Code(s): Z00.00 - Encounter for general adult medical examination without abnormal findings Plan: Keep well hydrated, eat healthy and keep active (2) COPD (chronic obstructive pulmonary disease): Code(s): J44.9 - Chronic obstructive pulmonary disease, unspecified Qualifiers: COPD type: emphysema Emphysema type: panlobular Qualified Code(s): J 43.1 - Panlobular emphysema Plan: Stable and not requiring any inhaler (3) Hypercholesterolemia: Code(s): E78.00 - Pure hypercholesterolemia, unspecified Plan: Avoid fried foods, chicken skin, eggs, butter margarine, pastries and meat. Be it pork or beef they have a lot of cholesterol (4) Generalized anxiety disorder: Code(s): F41.1 - Generalized anxiety disorder Plan: Stable (5) Blood pressure elevated without history of HTN: Code(s): R03.0 - Elevated blood-pressure reading, without diagnosis of hypertension (6) Cough: Code(s): R05.9 - Cough, unspecified Qualifiers: Cough type: acute Qualified Code(s): R05.1 - Acute cough Plan: Offered chest x-ray but patient declined (7) Pressure sore of ischial area: Comment: R 05/2023 Code(s): L89.309 - Pressure ulcer of unspecified buttock, unspecified stage Qualifiers: Pressure injury stage: stage 2 Laterality: right Qualified Code(s): L 89.312 - Pressure ulcer of right buttock, stage 2 Plan: bacitracin cream for now twice as day and advised to move and stay of gluteal area Plan Advised to monitor blood pressure and record. 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
== END 2023-05-25 09:53 | disposition home or self-care (01) ==
PROVIDERS: PCP Internal Medicine; Visit Provider Internal Medicine
DX: Z00.00 Encounter for general adult medical examination without abnormal findings (principal); J43.1 Panlobular emphysema; L89.312 Pressure ulcer of right buttock, stage 2; E78.00 Pure hypercholesterolemia, unspecified; F41.1 Generalized anxiety disorder; R03.0 Elevated blood-pressure reading, without diagnosis of hypertension; R05.1 Acute cough
CPT/HCPCS: G0439

== ENCOUNTER 2023-06-16 12:21 | Outpatient (AMB) | payer MEDICARE, SELFPAY ==
[2023-06-16 12:49] VITALS: BP 147/69; BMI 19.1
--- NOTE | 2023-06-16 12:49 | MHC.OFFVIS ---
Intake Vital Signs 06/16/23 12:49 Height 5 ft 5 in Weight 114 lb 10.246 oz BMI 19.1 BP 147/69 H Blood Pressure Location Rt brachial Position Sitting Intake Visit Reasons: 6 month follow up Intake Note: Siena presents in office as a follow up of constipation. CC: Patient reports that she had to D/c the Metamucil because the stools were so soft that they won't come out. She is now taking Miralax PRN and it seems to help with BMs. She reports concerns about weight loss, but states that she is eating normally. Wet Pour Supervisor Required: No Allergies aspirin [ASPIRIN] Allergy (Severe, Verified 06/16/23 12:56) ANAPHYLAXIS codeine [CODEINE] Allergy (Severe, Verified 06/16/23 12:56) ANAPHYLAXIS, itching naproxen [NAPROXEN] Allergy (Severe, Verified 06/16/23 12:56) ANAPHYLAXIS NSAIDS (Non-Steroidal Anti-Inflamma [NSAIDS (NON-STEROIDAL ANTI-INFLAMMA] Allergy (Severe, Verified 06/16/23 12:56) ANAPHYLAXIS (STATES CAN TAKE IBUPROFEN) doxycycline [DOXYCYCLINE] Allergy (Unknown, Verified 06/16/23 12:56) RASH ranitidine [From ZANTAC] Allergy (Unknown, Verified 06/16/23 12:56) UNKNOWN sertraline [From ZOLOFT] Allergy (Unknown, Verified 06/16/23 12:56) FELT LIKE I WAS ON FIRE Sulfa (Sulfonamide Antibiotics) [SULFA (SULFONAMIDE ANTIBIOTICS)] Allergy (Unknown, Verified 06/16/23 12:56) UNKNOWN HPI 6 month follow up HPI Details LAST VISIT Constipation Patient will start taking MiraLax in the morning with water throughout the day. List of food high in fiber given to patient. Patient will take Senokot and Colace in the evening. Discussed with patient the importance of drinking plenty fluids and increasing activity to promote better bowel motility. Diverticulosis Information on diet for diverticulosis given to patient. Patient can take probiotics. I will see patient in 6 months, sooner on as needed basis. Patient is agreeable to this plan and verbalizes understanding of instructions. She was given the opportunity to ask questions and all questions answered. ? Thank you for allowing me to participate in her care TODAY'S VISIT: Patient is here today for follow-up. Patient reports that she stopped taking Metamucil and she is moving her bowels better. She has not needed to take any MiraLax yet as she is able to move her bowels. Patient eats 1 large meal a day and then couple smaller meals. Patient reports that she has fair appetite. Denies any dyspepsia, dysphagia or odynophagia. Denies any abdominal pain or discomfort. Denies any melena, hematochezia. Patient reports that she is very nervous all the time. Patient lost 15 lb since last seen. Patient reports that she fell when going to the bathroom and since then she is afraid to go out any where. Patient is accompanied by her friend who she staying with. Patient's friend reports that she is very picky about food. [facility] Medical History (Updated 05/25/23 @ 18:53 by Cole Gee MD) Aphthous stomatitis Plantar fasciitis of left foot Bug bite Right hip pain Hip pain Hamstring tendinitis of left thigh Cholelithiasis Diverticulitis Left flank pain Left leg swelling Claudication Left leg pain Neck pain Blocked ear Neck pain Impacted cerumen of left ear Age-related osteoporosis without current pathological fracture Acute otitis media with effusion of left ear Insomnia History of diverticulitis Osteoarthritis, knee Osteopenia Diverticulitis Small bowel obstruction Hypercholesterolemia Allergic rhinitis Generalized anxiety disorder Pulmonary nodule Insomnia Surgical History History of cataract surgery History of tonsillectomy History of bilateral cataract extraction History of colonoscopy History of tonsillectomy Family History Father Obesity Stroke Mother Afib Son Diabetes Father No problems noted. Mother No problems noted. Son No problems noted. Social History (Updated 05/25/23 @ 09:22 by Cole Gee MD) Housing: House Alcohol intake: current Alcohol intake frequency: holidays/special occasions only Alcohol type: wine Comment: holidays 1 drink Patient Tobacco Use Status: Former Tobacco user Tobacco use type: Cigarette Years Smoked: 2012 stopped e-Cigarette/Vaping Use: Never Used Second Hand Smoke Exposure: Yes service: No Current occupational status: retired Cognitive needs: No Hearing needs: No Vision needs: Yes (reading glasses) Review of Systems Const Denies weight gain and Denies weight loss ENT Reports no additional complaints, Denies dysphagia and Denies odynophagia Card Reports no additional complaints Resp Reports no additional complaints GI Denies abdominal pain, Denies belching, Denies melena, Denies bloating, Denies change in bowel habits, Denies dysphagia, Denies excessive flatus, Denies dyspepsia, Denies heartburn, Denies diarrhea, Denies loose stools, Denies nausea, Denies odynophagia and Denies vomiting Musc Reports no additional complaints Neuro Reports no additional complaints Psych Reports no additional complaints Endo Reports no additional complaints Physical Exam Vital Signs: BMI result Body Mass Index 19.1 Const General: healthy appearing, no acute distress and well developed Nutritional Appearance: well nourished Orientation/consciousness: patient oriented x3 Resp Effort & Inspection: normal respiratory effort, able to speak in complete sentences, no tracheal deviation and symmetric chest movement Auscultation: clear to auscultation bilaterally Cardio Rate: regular rate GI Inspection: Yes normal to inspection and No distended Palpation (GI): Soft to palpation, not firm, nontender and No hepatosplenomegaly present Auscultation: normal bowel sounds General: Yes no CVA tenderness Back/Spine/Pelvis Back: no CVA tenderness Skin General skin exam: elasticity normal, turgor normal and dry skin Neuro General: patient oriented x3 Psych Appearance: grossly normal Mental Status: mental status grossly normal Assessment & Plan Assessment & Plan (1) Constipation: Code(s): K59.00 - Constipation, unspecified Qualifiers: Constipation type: chronic idiopathic constipation Qualified Code(s): K59.04 - Chronic idiopathic constipation (2) Diverticulosis: Code(s): K57.90 - Diverticulosis of intestine, part unspecified, without perforation or abscess without bleeding Plan Continue MiraLax on as-needed basis. Continue high-fiber diet. Patient was encouraged to eat more often. Patient reports and anxiety and forgetfulness. Will follow-up with PCP in September. I will see her in 1 year, sooner on as needed basis. Patient is agreeable to this plan and verbalizes understanding of instructions. She was given the opportunity to ask questions and all questions answered. Thank you for allowing me to participate in her care Coding Level of Care Code Est Pt Level 3 (78589) Diagnoses Chronic idiopathic constipation K59.04 Constipation type: chronic idiopathic constipation Diverticulosis K57.90 Time Spent (min) 25 Comment 15 minutes spent with patient and additional 10 minutes spent reviewing her records
== END 2023-06-16 13:19 | disposition home or self-care (01) ==
PROVIDERS: PCP Internal Medicine; Visit Provider Nurse Practitioner Family
DX: K59.04 Chronic idiopathic constipation (principal); K57.90 Diverticulosis of intestine, part unspecified, without perforation or abscess without bleeding
CPT/HCPCS: 99213

== ENCOUNTER → 2023-06-16 12:21 | Outpatient (BNVA) | payer MEDICARE, SELFPAY | PROVIDERS: PCP Internal Medicine; Visit Provider Nurse Practitioner Family | DX: K59.04 Chronic idiopathic constipation (principal); K57.90 Diverticulosis of intestine, part unspecified, without perforation or abscess without bleeding | CPT/HCPCS: 99212 ==

== ENCOUNTER 2023-09-01 13:47 | Outpatient (AMB) | payer MEDICARE, SELFPAY ==
[2023-09-01 13:53] VITALS: BP 151/65; PULSE 86; BMI 19.7
--- NOTE | 2023-09-01 13:53 | A.OFFVIS_ITS ---
Vital Signs 09/01/23 13:53 Height 5 ft 5 in Weight 118 lb 9.739 oz BMI 19.7 BP 151/65 H Blood Pressure Location Rt brachial Position Sitting Pulse 86 Intake Visit Reasons: constipation since 07/22 Intake Note: Siena returns in follow up today for constipation. CC: Patient reports she was very regular but since the beginning of July she is having trouble moving her bowels. Last BM was on Monday after a long time per patient. Denies other GI symptoms. 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 Allergies aspirin [ASPIRIN] Allergy (Severe, Verified 09/01/23 14:02) ANAPHYLAXIS codeine [CODEINE] Allergy (Severe, Verified 09/01/23 14:02) ANAPHYLAXIS, itching naproxen [NAPROXEN] Allergy (Severe, Verified 09/01/23 14:02) ANAPHYLAXIS NSAIDS (Non-Steroidal Anti-Inflamma [NSAIDS (NON-STEROIDAL ANTI-INFLAMMA] Allergy (Severe, Verified 09/01/23 14:02) ANAPHYLAXIS (STATES CAN TAKE IBUPROFEN) doxycycline [DOXYCYCLINE] Allergy (Unknown, Verified 09/01/23 14:02) RASH ranitidine [From ZANTAC] Allergy (Unknown, Verified 09/01/23 14:02) UNKNOWN sertraline [From ZOLOFT] Allergy (Unknown, Verified 09/01/23 14:02) FELT LIKE I WAS ON FIRE Sulfa (Sulfonamide Antibiotics) [SULFA (SULFONAMIDE ANTIBIOTICS)] Allergy (Unknown, Verified 09/01/23 14:02) UNKNOWN HPI HPI constipation since 07/22: Details: LAST VISIT: Constipation Diverticulosis Plan Continue MiraLax on as-needed basis. Continue high-fiber diet. Patient was encouraged to eat more often. Patient reports and anxiety and forgetfulness. Will follow-up with PCP in September. I will see her in 1 year, sooner on as needed basis. Patient is agreeable to this plan and verbalizes understanding of instructions. She was given the opportunity to ask questions and all questions answered. 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 Patient made this appointment as she has been having trouble moving her bowels. Patient reports that for over a month she stopped going to the bathroom, however she has not been taking MiraLax daily. Patient states that she was taking Senokot and was going too much so she started taking diarrhea other day. Eventually she feels like her bowels stopped working. Patient denies any melena, hematochezia. Denies any abdominal pain or discomfort except for cramping if she does not have a bowel movement for couple days. On Metamucil in the past, reports that was working for a while but then it stopped working. Patient denies nausea or vomiting. ? [facility] Medical History Aphthous stomatitis Plantar fasciitis of left foot Bug bite Right hip pain Hip pain Hamstring tendinitis of left thigh Cholelithiasis Diverticulitis Left flank pain Left leg swelling Claudication Left leg pain Neck pain Blocked ear Neck pain Impacted cerumen of left ear Age-related osteoporosis without current pathological fracture Acute otitis media with effusion of left ear Insomnia History of diverticulitis Osteoarthritis, knee Osteopenia Diverticulitis Small bowel obstruction Hypercholesterolemia Allergic rhinitis Generalized anxiety disorder Pulmonary nodule Insomnia Surgical History History of cataract surgery History of tonsillectomy History of bilateral cataract extraction History of colonoscopy History of tonsillectomy Family History Father Obesity Stroke Mother Afib Son Diabetes Father No problems noted. Mother No problems noted. Son No problems noted. Social History Housing: House Alcohol intake: current Alcohol intake frequency: holidays/special occasions only Alcohol type: wine Comment: holidays 1 drink Patient Tobacco Use Status: Former Tobacco user Tobacco use type: Cigarette Years Smoked: 2012 stopped e-Cigarette/Vaping Use: Never Used Second Hand Smoke Exposure: Yes service: No Current occupational status: retired Cognitive needs: No Hearing needs: No Vision needs: Yes (reading glasses) Review of Systems Const Denies weight gain and Denies weight loss ENT Reports no additional complaints, Denies dysphagia and Denies odynophagia Card Reports no additional complaints Resp Reports no additional complaints GI Denies abdominal pain, Denies belching, Denies melena, Denies bloating, Reports constipation, Denies dysphagia, Denies excessive flatus, Denies dyspepsia, Denies heartburn, Denies diarrhea, Denies loose stools, Denies nausea, Denies odynophagia and Denies vomiting Reports no additional complaints Musc Reports no additional complaints Neuro Reports no additional complaints Psych Reports no additional complaints Endo Reports no additional complaints Physical Exam Vital Signs: Last Vital Signs Pulse 86 09/01/23 13:53 BP 151/65 H 09/01/23 13:53 BMI result Body Mass Index 19.7 Const General: healthy appearing, no acute distress and well developed Nutritional Appearance: well nourished Orientation/consciousness: patient oriented x3 Resp Effort & Inspection: normal respiratory effort, able to speak in complete sentences, no tracheal deviation and symmetric chest movement Auscultation: clear to auscultation bilaterally Cardio Rate: regular rate GI Inspection: Yes normal to inspection and No distended Palpation (GI): Soft to palpation, not firm, nontender and No hepatosplenomegaly present Auscultation: normal bowel sounds General: Yes no CVA tenderness Back/Spine/Pelvis Back: no CVA tenderness Skin General skin exam: elasticity normal, turgor normal and dry skin Neuro General: patient oriented x3 Psych Appearance: grossly normal Mental Status: mental status grossly normal Affect: Anxious affect present Assessment & Plan Assessment & Plan (1) Constipation: Code(s): K59.00 - Constipation, unspecified Category: Medical Qualifiers: Constipation type: chronic idiopathic constipation Qualified Code(s): K59.04 - Chronic idiopathic constipation (2) Diverticulosis: Code(s): K57.90 - Diverticulosis of intestine, part unspecified, without perforation or abscess without bleeding Plan Patient was encouraged to take MiraLax every day. Senokot 2 tabs every other day if unable to move her bowels. Increase fluid intake and activity to promote better bowel motility. Follow-up in the office in 2 months, sooner on as needed basis. Patient is agreeable to this plan and verbalizes understanding of instructions. She was given the opportunity to ask questions and all questions answered. Thank you for allowing me to participate in her care Patient Instructions: Take MiraLax every morning after breakfast with full glass of water.? If you do not have a bowel movement 2nd day after you take MiraLax by 17:00 you can take Senokot 2 tabs Coding Level of Care Code Est Pt Level 3 (73003) Diagnoses Chronic idiopathic constipation K59.04 Constipation type: chronic idiopathic constipation Diverticulosis K57.90 Time Spent (min) 30 Comment 20 minutes spent with patient and additional 10 minutes spent reviewing her records
== END 2023-09-01 14:36 | disposition home or self-care (01) ==
PROVIDERS: PCP Internal Medicine; Visit Provider Nurse Practitioner Family
DX: K59.04 Chronic idiopathic constipation (principal); K57.90 Diverticulosis of intestine, part unspecified, without perforation or abscess without bleeding
CPT/HCPCS: 99213

== ENCOUNTER → 2023-09-01 13:47 | Outpatient (BNVA) | payer MEDICARE, SELFPAY | PROVIDERS: PCP Internal Medicine; Visit Provider Nurse Practitioner Family | DX: K59.04 Chronic idiopathic constipation (principal); K57.90 Diverticulosis of intestine, part unspecified, without perforation or abscess without bleeding | CPT/HCPCS: 99212 ==

== ENCOUNTER 2023-09-21 09:23 | Outpatient (AMB) | payer MEDICARE, SELFPAY ==
[2023-09-21 10:14] VITALS: BP 142/80; PULSE 81; O2SAT 97; BMI 19.6
--- NOTE | 2023-09-21 10:14 | A.OFFPC_ITS ---
Vital Signs 09/21/23 10:14 Height 5 ft 5 in Weight 118 lb BMI 19.6 BP 142/80 H Blood Pressure Location Lt brachial Position Sitting Pulse 81 Pulse Source Pulse Oximeter Pulse Oximetry (%) 97 Oxygen Delivery Method Room Air Intake Visit Reasons: Constipation, COPD Allergies aspirin [ASPIRIN] Allergy (Severe, Verified 09/21/23 10:14) ANAPHYLAXIS codeine [CODEINE] Allergy (Severe, Verified 09/21/23 10:14) ANAPHYLAXIS, itching naproxen [NAPROXEN] Allergy (Severe, Verified 09/21/23 10:14) ANAPHYLAXIS NSAIDS (Non-Steroidal Anti-Inflamma [NSAIDS (NON-STEROIDAL ANTI-INFLAMMA] Allergy (Severe, Verified 09/21/23 10:14) ANAPHYLAXIS (STATES CAN TAKE IBUPROFEN) doxycycline [DOXYCYCLINE] Allergy (Unknown, Verified 09/21/23 10:14) RASH ranitidine [From ZANTAC] Allergy (Unknown, Verified 09/21/23 10:14) UNKNOWN sertraline [From ZOLOFT] Allergy (Unknown, Verified 09/21/23 10:14) FELT LIKE I WAS ON FIRE Sulfa (Sulfonamide Antibiotics) [SULFA (SULFONAMIDE ANTIBIOTICS)] Allergy (Unk nown, Verified 09/21/23 10:14) UNKNOWN Tobacco use date assessed: 09/21/23 Fall risk assessment: No Falls in past year Last assessed Fall Risk: 09/21/23 Dental Screening Dental Screen Date: 09/21/23 Did you have a dental visit in the last 12 months?: No Did you have a dental problem in the last 6 months where you did not have access to dental care?: No Was dental information given to patient?: No HPI Constipation, COPD HPI Details 83-year-old female with a 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 Also noted to have an elevated blood pressure. Had some cough at that time did not like to have the chest x-ray done. Patient follows up with Gastroenterology for constipation MiraLax prescribed with Senokot advised to increase fluids. 1 month ago R breat pain- BP at home is good as per Michelle . as for the redness on the gluteal area- still mild red. R breast pain deny fall or trauma occured 1 day deny [facility] Medical History (Updated 09/21/23 @ 11:10 by Cole Gee MD) Constipation due to outlet obstruction Aphthous stomatitis Plantar fasciitis of left foot Bug bite Right hip pain Hip pain Hamstring tendinitis of left thigh Cholelithiasis Diverticulitis Left flank pain Left leg swelling Claudication Left leg pain Neck pain Blocked ear Neck pain Impacted cerumen of left ear Age-related osteoporosis without current pathological fracture Acute otitis media with effusion of left ear Insomnia History of diverticulitis Osteoarthritis, knee Osteopenia Diverticulitis Small bowel obstruction Hypercholesterolemia Allergic rhinitis Generalized anxiety disorder Pulmonary nodule Insomnia Surgical History History of cataract surgery History of tonsillectomy History of bilateral cataract extraction History of colonoscopy History of tonsillectomy Family History Father Obesity Stroke Mother Afib Son Diabetes Father No problems noted. Mother No problems noted. Son No problems noted. Social History Housing: House Alcohol intake: current Alcohol intake frequency: holidays/special occasions only Alcohol type: wine Comment: holidays 1 drink Patient Tobacco Use Status: Former Tobacco user Tobacco use type: Cigarette Years Smoked: 2012 stopped e-Cigarette/Vaping Use: Never Used Second Hand Smoke Exposure: Yes service: No Current occupational status: retired Cognitive needs: No Hearing needs: No Vision needs: Yes (reading glasses) Questionnaire PHQ-9 Over the last 2 weeks, how often have you been bothered by any of the following problems? 1. Little interest or pleasure in doing things: not at all 2. Feeling down, depressed, or hopeless: not at all 3. Trouble falling or staying asleep, or sleeping too much: not at all 4. Feeling tired or having little energy: not at all 5. Poor appetite or overeating: not at all 6. Feeling bad about yourself - or that you are a failure or have let yourself or your family down: not at all 7. Trouble concentrating on things, such as reading the newspaper or watching television: not at all 8. Moving or speaking so slowly that other people could have noticed. Or the opposite - being so fidgety or restless that you have been moving around a lot more than usual: not at all 9. Thoughts that you would be better off or of hurting yourself in some way: not at all Total score: 0 Depression Screening Interpretation: Negative Depression Screening Done: Yes Source: Developed by Drs. Boubacar Valdez, Connie Ma, Anthony Coleman and colleagues, with an educational swathi from [employer]. Thrive Questionnaire Date Thrive assessed: 09/21/23 I am a: Patient What is your living situation today?: I have a steady place to live Within the past 12 months, did the food you bought not last and you didn't have the money to get more?: Never true Within the past 12 months, did you worry whether your food would run out before you got money to buy more?: Never true Do you have trouble paying for medicines?: No Do you have trouble getting transportation to medical appointments?: No Do you have trouble paying your heating and electricity bill?: No Do you have trouble taking care of your child, family member or friend?: No Do you have trouble with day-to-day activities such as bathing, preparing meals, shopping, managing finances, etc.?: No Are you currently unemployed and looking for a job?: No Are you interested in more education?: No Currently or been in a relationship where the following occur: no concerns reported THRIVE Score: 0 AUDIT C Alcohol Use Questionnaire (AUDIT-C) 1. How often do you have a drink containing alcohol?: Never Total Score: 0 Score Reviewed/Action Taken: No EUSEBIA-7 AMB Questionnaire EUSEBIA-7 Date EUSEBIA - 7 assessed: 09/21/23 Feeling nervous, anxious, or on edge: 0 = Not at all Not being able to stop or control worryin = Not at all Worrying too much about different things: 0 = Not at all Trouble relaxin = Not at all Being so restless that it is hard to sit still: 0 = Not at all Becoming easily annoyed or irritable: 0 = Not at all Feeling afraid as if something awful might happen: 0 = Not at all Total EUSEBIA-7 score (0-4 normal; 5-9 mild; 10-14 moderate; 15-21 severe): 0 Source: Developed by Drs. Boubacar Valdez, Connie Ma, Anthony Coleman and colleagues, with an educational swathi from [employer]. Physical exam (Primary Care) Vital Signs: Last Vital Signs Pulse 81 09/21/23 10:14 BP 142/80 H 09/21/23 10:14 Pulse Ox 97 09/21/23 10:14 Oxygen Delivery Method Room Air 09/21/23 10:14 BMI result Body Mass Index 19.6 Tobacco/Smoking Status: Tobacco use Status Tobacco use date assessed 09/21/23 09/21/23 10:16 Patient Tobacco Use Status Former Tobacco user 09/21/23 10:16 Tobacco use type Cigarette 09/21/23 10:16 e-Cigarette/Vaping Use Never Used 09/21/23 10:16 PHQ-9: PHQ-9 Score PHQ-9: Total score 0 09/21/23 10:25 Depression Screening Interpretation: Negative Thrive Assessment: Date of Thrive Assessment Date Thrive assessed 09/21/23 09/21/23 10:16 Currently or been in a relationship where the following occur: no concerns reported Const General: alert; No acute distress Eyes Conjunctivae: conjunctivae normal Resp Auscultation: clear to auscultation bilaterally Cardio Rate: regular rate Rhythm: regular rhythm GI Inspection: Yes normal to inspection Extrem General: Yes normal to inspection and No edema Assessment and Plan Assessment & Plan (1) COPD (chronic obstructive pulmonary disease): Code(s): J44.9 - Chronic obstructive pulmonary disease, unspecified Qualifiers: COPD type: emphysema Emphysema type: panlobular Qualified Code(s): J43.1 - Panlobular emphysema Plan: Presently stable without any inhalers. (2) Hypercholesterolemia: Code(s): E78.00 - Pure hypercholesterolemia, unspecified Plan: Avoid fried foods, chicken skin, eggs, butter margarine, pastries and meat. Be it pork or beef they have a lot of cholesterol February 2023 normal (3) Generalized anxiety disorder: Code(s): F41.1 - Generalized anxiety disorder (4) Blood pressure elevated without history of HTN: Code(s): R03.0 - Elevated blood-pressure reading, without diagnosis of hypertension Plan: Concern about elevated blood pressure advised to monitor at home and record. BP at home is good (5) Cough: Code(s): R05.9 - Cough, unspecified Qualifiers: Cough type: acute Qualified Code(s): R05.1 - Acute cough Plan: request chest xray (6) Pressure sore of ischial area: Comment: R 05/2023 Code(s): L89.309 - Pressure ulcer of unspecified buttock, unspecified stage Qualifiers: Pressure injury stage: stage 2 Laterality: right Qualified Code(s): L89.312 - Pressure ulcer of right buttock, stage 2 Plan: Advised patient to keep active (7) Constipation: Code(s): K59.00 - Constipation, unspecified Qualifiers: Constipation type: chronic idiopathic constipation Qualified Code(s): K59.04 - Chronic idiopathic constipation Plan: Three rules for constipation 1. Diet need to have a high fiber diet less of meat 2. Increase oral fluids 3. 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
== END 2023-09-21 11:21 | disposition home or self-care (01) ==
PROVIDERS: PCP Internal Medicine; Visit Provider Internal Medicine
DX: J43.1 Panlobular emphysema (principal); L89.312 Pressure ulcer of right buttock, stage 2; E78.00 Pure hypercholesterolemia, unspecified; F41.1 Generalized anxiety disorder; R03.0 Elevated blood-pressure reading, without diagnosis of hypertension; R05.1 Acute cough; K59.04 Chronic idiopathic constipation; N64.4 Mastodynia
CPT/HCPCS: 99214

== ENCOUNTER 2023-09-25 10:41 | Outpatient (REF) | payer MEDICARE, SELFPAY ==
--- NOTE | ~2023-09-25 | XR_ITS ---
EXAMINATION: XR CHEST CLINICAL INFORMATION: Acute cough COMPARISON: 04/08/2018, 04/06/2018 TECHNIQUE: 2 views of the chest were obtained. FINDINGS: The lungs are hyperinflated. Heart size within normal limits. No gross pleural effusion. Mild biapical pleural thickening. Increased bilateral, predominantly bibasilar opacities may represent bronchiectasis, atelectasis and/or an infectious/inflammatory process. No gross pleural effusion. Degenerative changes in the thoracic spine. XR/XR chest 2V IMPRESSION: Increased bilateral, predominantly bibasilar opacities may represent bronchiectasis, atelectasis and/or an infectious/inflammatory process. This study was presented today October 11 2023 for interpretation. PSA staff will provide results to referring provider at this time.
== END 2023-09-25 10:42 | disposition home or self-care (01) ==
LOC: HO.XRAY 10:41
PROVIDERS: PCP Internal Medicine; Visit Provider Internal Medicine
DX: R05.1 Acute cough (principal)
CPT/HCPCS: 71046

== ENCOUNTER 2023-10-16 11:22 | Emergency (ER) | payer MEDICARE, SELFPAY ==
[2023-10-16 12:48] VITALS: BP 169/77; PULSE 82; RESP 18; TEMP 36; O2SAT 100; BMI 19.1
--- NOTE | 2023-10-16 12:53 | ED_ITS ---
HPI - General Adult General Chief complaint: Wound/Laceration Stated complaint: Bleeding wound on back Time Seen by Provider: 10/16/23 20:44 Source: patient, RN notes reviewed and old records reviewed Mode of arrival: ambulatory Limitations: no limitations History of Present Illness ED Provider: Rosalind HPI narrative: 83-year-old female presents for evaluation of a wound on her right buttocks. She states she has had a wound for about 1 month. The area was evaluated by her primary doctor who advised her that it did not look infected and to put lotion and bacitracin on the area. Over last 2 days the wound has been bleeding intermittently Patient states that when she has bowel movement it starts to bleed because ?I wiped the area because I can not see it. She is due to see wound care in 2 weeks The patient is not anticoagulated Related Data Home Medications ?Medication ?Instructions ?Recorded ?Confirmed loratadine 10 mg tablet (Claritin) 10 mg PO DAILY 02/06/20 05/25/23 multivitamin 1 tab PO DAILY 12/13/22 05/25/23 polyethylene glycol 3350 17 17 g PO DAILY 09/21/23 gram/dose oral powder (Miralax) Previous Rx's ?Medication ?Instructions ?Recorded fluticasone propionate 50 1 spray intranasal DAILY 14 days 05/14/21 mcg/actuation nasal #150 mL spray,suspension (Flonase Allergy Relief) psyllium husk 0.52 gram capsule 1.04 g (2 x 0.52 gram) PO DAILY 07/13/22 #60 caps docusate sodium 100 mg capsule 100 mg PO BEDTIME #90 caps 08/10/22 sennosides 8.6 mg tablet (Natural 17.2 mg (2 x 8.6 mg) PO BEDTIME 08/10/22 Senna Laxative) constipation #60 tabs acetaminophen 650 mg 650 mg PO .Q6 hours PRN pain 10 01/10/23 tablet,extended release (Tylenol days #20 tabs Arthritis Pain) mupirocin 2 % topical ointment 1 appl topical BID 15 days #22 02/01/23 grams trazodone 150 mg tablet 75 mg (1/2 x 150 mg) PO BEDTIME 05/15/23 for insomnia 90 days #45 tabs blood pressure monitor (Blood #1 ea 05/25/23 Pressure Kit) amoxicillin 875 mg-potassium 1 tab PO BID #14 tabs 10/11/23 clavulanate 125 mg tablet azithromycin 250 mg tablet See Rx Instructions PO .COMPLEX #6 10/11/23 (Zithromax) tabs Allergies Allergy/AdvReac Type Severity Reaction Status Date / Time aspirin [ASPIRIN] Allergy Severe ANAPHYLAXIS Verified 10/16/23 12:52 codeine [CODEINE] Allergy Severe ANAPHYLAXIS, Verified 10/16/23 12:52 itching naproxen [NAPROXEN] Allergy Severe ANAPHYLAXIS Verified 10/16/23 12:52 NSAIDS (Non-Steroidal Allergy Severe ANAPHYLAXIS Verified 10/16/23 12:52 Anti-Inflamma (STATES [NSAIDS (NON-STEROIDAL CAN TAKE ANTI-INFLAMMA] IBUPROFEN) doxycycline [DOXYCYCLINE] Allergy Unknown RASH Verified 10/16/23 12:52 ranitidine [From ZANTAC] Allergy Unknown UNKNOWN Verified 10/16/23 12:52 sertraline [From ZOLOFT] Allergy Unknown FELT LIKE Verified 10/16/23 12:52 I WAS ON FIRE Sulfa (Sulfonamide Allergy Unknown UNKNOWN Verified 10/16/23 12:52 Antibiotics) [SULFA (SULFONAMIDE ANTIBIOTICS)] Review of Systems Constitutional: Constitutional: Denies body ache(s), Denies chills and Denies fever(s) Cardiovascular: Cardiovascular: Denies dyspnea Respiratory: Respiratory: Denies cough and Denies dyspnea Musculoskeletal: Musculoskeletal: Denies back pain Integumentary/Breasts: Skin/Breast: Reports wounds PMFSH Past Medical History Medical History (Updated 10/16/23 @ 21:03 by Andrea Boyer) Constipation due to outlet obstruction Aphthous stomatitis Plantar fasciitis of left foot Bug bite Right hip pain Hip pain Hamstring tendinitis of left thigh Cholelithiasis Diverticulitis Left flank pain Left leg swelling Claudication Left leg pain Neck pain Blocked ear Neck pain Impacted cerumen of left ear Age-related osteoporosis without current pathological fracture Acute otitis media with effusion of left ear Insomnia History of diverticulitis Osteoarthritis, knee Osteopenia Diverticulitis Small bowel obstruction Hypercholesterolemia Allergic rhinitis Generalized anxiety disorder Pulmonary nodule Insomnia Surgical History History of cataract surgery History of tonsillectomy History of bilateral cataract extraction History of colonoscopy History of tonsillectomy Family History Family History Father Obesity Stroke Mother Afib Son Diabetes Father No problems noted. Mother No problems noted. Son No problems noted. Social History Social History Housing: House Alcohol intake: current Alcohol intake frequency: holidays/special occasions only Alcohol type: wine Comment: holidays 1 drink Patient Tobacco Use Status: Former Tobacco user Tobacco use type: Cigarette Years Smoked: 2012 stopped e-Cigarette/Vaping Use: Never Used Second Hand Smoke Exposure: Yes Advance Directives: No Advance Directives Information Provided: Yes Do you have a plan to hurt others: No Plan service: No Current occupational status: retired Cognitive needs: No Hearing needs: No Vision needs: Yes (reading glasses) Physical Exam ED Vital Signs: Vital Signs - 24 hr 10/16/23 12:48 10/16/23 20:12 10/16/23 21:11 Temperature 96.8 F 98 F 98 F Pulse Rate 82 79 79 Respiratory Rate 18 18 18 Blood Pressure 169/77 H 148/55 H 148/55 H Pulse Oximetry 100 99 99 Oxygen Delivery Method Room Air Room Air Room Air BMI result Body Mass Index 19.1 Const General: healthy appearing, comfortable, no acute distress, alert and awake Nutritional Appearance: well nourished Orientation/consciousness: patient oriented x3 HENMT Head: Yes normocephalic and Yes atraumatic Eyes Eyelids: Yes eyelids normal Conjunctivae: conjunctivae normal Sclerae: sclerae normal Corneas: corneas normal Pupils: Equal, round and reactive pupils present EOM: EOMs intact bilaterally Neck Neck: Yes full ROM Resp Effort & Inspection: normal respiratory effort, able to speak in complete sentences and not labored Skin Other: Patient has a 1 cm superficial wound to the right gluteal cleft. The area is scabbed over, there is no active bleeding. No surrounding erythema, no fluctuance, induration or edema. General skin exam: elasticity normal Neuro General: patient oriented x3 Cranial nerves: Yes Equal, round and reactive pupils present and Yes Bilaterally intact EOM present Cognition (Neuro): normal cognition Extrem Other: Moving all extremities well without any obvious deformities Course Course Course Narrative: RME performed by Harriett Skelton PA-C. Patient is an 83 year old assigned female at presenting to the emergency department with a lower back lesion. Patient states she has a lesion just above her gluteal cleft and it hasn't been healing well. Patient states that she has an appointment later this month at the wound center but they recommended she come to the ER. Detailed physical exam and review of systems are deferred to the on air talent. Patient placed back in the waiting room pending room availability and results. Medical Decision Making Medical Decision Making MDM Narrative: 83-year-old female presents for evaluation of a small wound on her buttocks. This is likely a small/early pressure ulcer that has been present for at least 1 month. I personally applied a small amount of Exofin skin glue to the area to seal it so it will not continue bleeding. Patient was advised to be careful when wiping after bowel movements. She will see wound care in 2 weeks. There is no sign of infection Differential Diagnosis Differential Diagnoses: The differential diagnosis associated with the presentation includes Pressure ulcer Acute wound Decubitus ulcer Abscess less likely Discharge Plan Discharge Clinical Impression: Chronic wound Patient Disposition: Home, Self-Care Instructions: Chronic Wounds (ED) Additional Instructions: The wound on your buttocks does not appear infected We covered the area with skin glue to prevent it from bleeding Follow-up with wound care in 2 weeks as planned Return for new or worsening symptoms Prescriptions: No Action fluticasone propionate [Flonase Allergy Relief] 50 mcg/actuation spray,suspension 1 spray intranasal DAILY 14 Days Qty: 150 11RF Rx Instructions: administer into each nostril acetaminophen [Tylenol Arthritis Pain] 650 mg tablet extended release 650 mg PO .Q6 hours PRN (Reason: pain) 10 Days Qty: 20 0RF trazodone 150 mg tablet 75 mg PO BEDTIME 90 Days Qty: 45 3RF amoxicillin-pot clavulanate 875-125 mg tablet 1 tab PO BID Qty: 14 0RF azithromycin [Zithromax] 250 mg tablet See Rx Instructions PO .COMPLEX Qty: 6 0RF Rx Instructions: For 250 mg dose pack: take 500 mg today (day 1), then 250 mg for 4 days (days 2-5) PO loratadine [Claritin] 10 mg tablet 10 mg PO DAILY (DME) blood pressure monitor [Blood Pressure Kit] Kit See Rx Instructions .ROUTE .MEDSUPPLY Qty: 1 0RF Rx Instructions: As directed polyethylene glycol 3350 [Miralax] 17 gram/dose powder 17 g PO DAILY mupirocin 2 % ointment 1 appl topical BID 15 Days Qty: 22 0RF psyllium husk 0.52 gram capsule 1.04 g PO DAILY Qty: 60 4RF docusate sodium 100 mg capsule 100 mg PO BEDTIME Qty: 90 3RF Rx Instructions: Take it every night sennosides [Natural Senna Laxative] 8.6 mg tablet 17.2 mg PO BEDTIME Qty: 60 3RF multivitamin Tablet 1 tab PO DAILY Interventions: ED Discharge Assessment Last Done: 10/16/23 21:11 Discharge Date/Time: 10/16/23 21:12 Print Language: Lithuanian
[2023-10-16 20:12] VITALS: BP 148/55; PULSE 79; RESP 18; TEMP 36.6; O2SAT 99
[2023-10-16 21:11] VITALS: BP 148/55; PULSE 79; RESP 18; TEMP 36.6; O2SAT 99
== END 2023-10-16 21:12 | disposition home or self-care (01) ==
PROVIDERS: Emergency Provider Internal Medicine; PCP Internal Medicine
DX: S31.809A Unspecified open wound of unspecified buttock, initial encounter (principal); X58.XXXA Exposure to other specified factors, initial encounter; Y93.9 Activity, unspecified; Y92.9 Unspecified place or not applicable; Y99.9 Unspecified external cause status
CPT/HCPCS: 99282; 99284

== ENCOUNTER 2023-10-27 13:41 | Outpatient (AMB) | payer MEDICARE, SELFPAY ==
--- NOTE | 2023-10-27 14:07 | MHC.OFFVIS ---
Vital Signs 10/27/23 14:15 Height 5 ft 5 in Weight 120 lb 13.013 oz BMI 20.1 BP 144/64 H Blood Pressure Location Rt brachial Position Sitting Pulse 74 Pulse Source Pulse Oximeter Pulse Oximetry (%) 98 Oxygen Delivery Method Room Air Intake Visit Reasons: 2 month follow up Intake Note: Siena presents to the office today for a scheduled 2 mos FUV. CC: Pt reports that she has been having BMs but they have been irregular. Pt reports that their BMs have become more formed than they had been about a week or two ago when she was having constant diarrhea, however; it is still less formed than she would like it to be. Pt had been taking antibiotics recently for diagnosed pneumonia via Dr. Gee. Pt reports that she had taken x2 antibiotics and a probiotic as instructed. 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 Allergies aspirin [ASPIRIN] Allergy (Severe, Verified 10/27/23 14:08) ANAPHYLAXIS codeine [CODEINE] Allergy (Severe, Verified 10/27/23 14:08) ANAPHYLAXIS, itching naproxen [NAPROXEN] Allergy (Severe, Verified 10/27/23 14:08) ANAPHYLAXIS NSAIDS (Non-Steroidal Anti-Inflamma [NSAIDS (NON-STEROIDAL ANTI-INFLAMMA] Allergy (Severe, Verified 10/27/23 14:08) ANAPHYLAXIS (STATES CAN TAKE IBUPROFEN) doxycycline [DOXYCYCLINE] Allergy (Unknown, Verified 10/27/23 14:08) RASH ranitidine [From ZANTAC] Allergy (Unknown, Verified 10/27/23 14:08) UNKNOWN sertraline [From ZOLOFT] Allergy (Unknown, Verified 10/27/23 14:08) FELT LIKE I WAS ON FIRE Sulfa (Sulfonamide Antibiotics) [SULFA (SULFONAMIDE ANTIBIOTICS)] Allergy (Unknown, Verified 10/27/23 14:08) UNKNOWN HPI HPI 2 month follow up: Details: LAST VISIT: Constipation Diverticulosis Plan Patient was encouraged to take MiraLax every day. Senokot 2 tabs every other day if unable to move her bowels. Increase fluid intake and activity to promote better bowel motility. Follow-up in the office in 2 months, sooner on as needed basis. Patient is agreeable to this plan and verbalizes understanding of instructions. She was given the opportunity to ask questions and all questions answered. TODAY'S VISIT: Patient is here today for follow-up. Patient reports that she has been feeling fairly well. Patient states that she is able to move her bowels daily. Patient reports small BMs 3 to 4 times a day. Patient does not feel like she is constipated. Patient denies any diarrhea. Patient reports that she was diagnosed with pneumonia and was placed on antibiotics. Patient states that she developed I, her PCP started her on probiotics that she has been taking daily. Patient denies any melena, hematochezia, unintentional weight loss or ribbon like stools. Patient denies any dyspepsia, dysphagia or odynophagia. Patient reports that she has been feeling well patient reports that she is taking MiraLax daily [facility] Medical History Constipation due to outlet obstruction Aphthous stomatitis Plantar fasciitis of left foot Bug bite Right hip pain Hip pain Hamstring tendinitis of left thigh Cholelithiasis Diverticulitis Left flank pain Left leg swelling Claudication Left leg pain Neck pain Blocked ear Neck pain Impacted cerumen of left ear Age-related osteoporosis without current pathological fracture Acute otitis media with effusion of left ear Insomnia History of diverticulitis Osteoarthritis, knee Osteopenia Diverticulitis Small bowel obstruction Hypercholesterolemia Allergic rhinitis Generalized anxiety disorder Pulmonary nodule Insomnia Surgical History History of cataract surgery History of tonsillectomy History of bilateral cataract extraction History of colonoscopy History of tonsillectomy Family History Father Obesity Stroke Mother Afib Son Diabetes Father No problems noted. Mother No problems noted. Son No problems noted. Social History Housing: House Alcohol intake: current Alcohol intake frequency: holidays/special occasions only Alcohol type: wine Comment: holidays 1 drink Patient Tobacco Use Status: Former Tobacco user Tobacco use type: Cigarette Years Smoked: 2012 stopped e-Cigarette/Vaping Use: Never Used Second Hand Smoke Exposure: Yes service: No Current occupational status: retired Cognitive needs: No Hearing needs: No Vision needs: Yes (reading glasses) Review of Systems Const Denies weight gain and Denies weight loss ENT Reports no additional complaints, Denies dysphagia and Denies odynophagia Card Reports no additional complaints Resp Reports no additional complaints GI Denies abdominal pain, Denies belching, Denies melena, Denies bloating, Denies change in bowel habits, Denies dysphagia, Denies excessive flatus, Denies dyspepsia, Denies heartburn, Denies diarrhea, Denies loose stools, Denies nausea, Denies odynophagia and Denies vomiting Musc Reports no additional complaints Neuro Reports no additional complaints Psych Reports no additional complaints Endo Reports no additional complaints Physical Exam Vital Signs: Last Vital Signs Pulse 74 10/27/23 14:15 BP 144/64 H 10/27/23 14:15 Pulse Ox 98 10/27/23 14:15 Oxygen Delivery Method Room Air 10/27/23 14:15 BMI result Body Mass Index 20.1 Const General: healthy appearing, no acute distress and well developed Nutritional Appearance: well nourished Orientation/consciousness: patient oriented x3 Resp Effort & Inspection: normal respiratory effort, able to speak in complete sentences, no tracheal deviation and symmetric chest movement Auscultation: clear to auscultation bilaterally Cardio Rate: regular rate GI Inspection: Yes normal to inspection and No distended Palpation (GI): Soft to palpation, not firm, nontender and No hepatosplenomegaly present Auscultation: normal bowel sounds General: Yes no CVA tenderness Back/Spine/Pelvis Back: no CVA tenderness Skin General skin exam: elasticity normal, turgor normal and dry skin Neuro General: patient oriented x3 Psych Appearance: grossly normal Mental Status: mental status grossly normal Affect: Anxious affect present Assessment & Plan Assessment & Plan (1) Constipation: Code(s): K59.00 - Constipation, unspecified Category: Medical Qualifiers: Constipation type: chronic idiopathic constipation Qualified Code(s): K59.04 - Chronic idiopathic constipation (2) Diverticulosis: Code(s): K57.90 - Diverticulosis of intestine, part unspecified, without perforation or abscess without bleeding Plan Continue MiraLax daily. If trouble moving her bowels and does not feel like she empties her bowels completely may take Senokot. Increase fluid intake and activity to promote better bowel motility. Patient will follow-up in 2 months, sooner on as needed basis. She is agreeable to this plan and verbalizes understanding instructions. She was given the opportunity to ask questions and all questions answered. Thank you for allowing me to participate in her care Coding Level of Care Code Est Pt Level 3 (13477) Diagnoses Chronic idiopathic constipation K59.04 Constipation type: chronic idiopathic constipation Diverticulosis K57.90 Time Spent (min) 25 Comment 15 minutes spent with patient and additional 10 minutes spent reviewing her records
[2023-10-27 14:15] VITALS: BP 144/64; PULSE 74; O2SAT 98; BMI 20.1
== END 2023-10-27 14:52 | disposition home or self-care (01) ==
PROVIDERS: PCP Internal Medicine; Visit Provider Nurse Practitioner Family
DX: K59.04 Chronic idiopathic constipation (principal); K57.90 Diverticulosis of intestine, part unspecified, without perforation or abscess without bleeding
CPT/HCPCS: 99213

== ENCOUNTER → 2023-10-27 13:41 | Outpatient (BNVA) | payer MEDICARE, SELFPAY | PROVIDERS: PCP Internal Medicine; Visit Provider Nurse Practitioner Family | DX: K59.04 Chronic idiopathic constipation (principal); K57.90 Diverticulosis of intestine, part unspecified, without perforation or abscess without bleeding | CPT/HCPCS: 99212 ==

== ENCOUNTER 2023-10-30 13:46 | Outpatient (RCR) | payer MEDICARE, SELFPAY | END 2023-12-01 12:32 | disposition home or self-care (01) | LOC: HO.WCC 13:46 | PROVIDERS: PCP Internal Medicine; Visit Provider Physician Assistant | DX: Z09 Encounter for follow-up examination after completed treatment for conditions other than malignant neoplasm (principal); J43.9 Emphysema, unspecified; Z87.891 Personal history of nicotine dependence; Z87.2 Personal history of diseases of the skin and subcutaneous tissue | CPT/HCPCS: 99212 ==

== ENCOUNTER 2023-12-25 10:58 | Outpatient (AMB) | payer MEDICARE, SELFPAY ==
[2023-12-25 11:08] VITALS: BP 144/74; PULSE 74; O2SAT 95; BMI 19.3
--- NOTE | 2023-12-25 11:08 | A.OFFVIS_ITS ---
Vital Signs 12/25/23 11:08 Height 5 ft 5 in Weight 115 lb 15.41 oz BMI 19.3 BP 144/74 H Blood Pressure Location Lt brachial Position Sitting Pulse 74 Pulse Source Pulse Oximeter Pulse Oximetry (%) 95 Oxygen Delivery Method Room Air Intake Visit Reasons: 2 month follow up Intake Note: Siena presents in office today for a scheduled 2 mos FUV. CC; Pt reports that they have remained stable since their last visit. Pt is still having chronic sx. Pt denies any new concerns at this time. 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 Accompanied by: Family/Other Allergies aspirin [ASPIRIN] Allergy (Severe, Verified 12/25/23 11:08) ANAPHYLAXIS codeine [CODEINE] Allergy (Severe, Verified 12/25/23 11:08) ANAPHYLAXIS, itching naproxen [NAPROXEN] Allergy (Severe, Verified 12/25/23 11:08) ANAPHYLAXIS NSAIDS (Non-Steroidal Anti-Inflamma [NSAIDS (NON-STEROIDAL ANTI-INFLAMMA] Allergy (Severe, Verified 12/25/23 11:08) ANAPHYLAXIS (STATES CAN TAKE IBUPROFEN) doxycycline [DOXYCYCLINE] Allergy (Unknown, Verified 12/25/23 11:08) RASH ranitidine [From ZANTAC] Allergy (Unknown, Verified 12/25/23 11:08) UNKNOWN sertraline [From ZOLOFT] Allergy (Unknown, Verified 12/25/23 11:08) FELT LIKE I WAS ON FIRE Sulfa (Sulfonamide Antibiotics) [SULFA (SULFONAMIDE ANTIBIOTICS)] Allergy (Unknown, Verified 12/25/23 11:08) UNKNOWN HPI HPI 2 month follow up: Details: LAST VISIT: Constipation Diverticulosis Plan Continue MiraLax daily. If trouble moving her bowels and does not feel like she empties her bowels completely may take Senokot. Increase fluid intake and activity to promote better bowel motility. Patient will follow-up in 2 months, sooner on as needed basis. She is agreeable to this plan and verbalizes understanding instructions. She was given the opportunity to ask questions and all questions answered. ? Thank you for allowing me to participate in her care TODAY'S VISIT Patient is here today for follow-up. Patient is accompanied by her friend. Patient reports that since the last time I have seen her she has been doing better. 2-3 bowel movements daily. No diarrhea. Patient denies any abdominal pain or discomfort. Patient denies melena, hematochezia, unintentional weight loss or ribbon like stools. Patient denies dyspepsia, dysphagia or odynophagia. Patient eats only 1 big meal a day otherwise she snacks throughout the day. REPLACED BY [facility] Medical History Constipation due to outlet obstruction Aphthous stomatitis Plantar fasciitis of left foot Bug bite Right hip pain Hip pain Hamstring tendinitis of left thigh Cholelithiasis Diverticulitis Left flank pain Left leg swelling Claudication Left leg pain Neck pain Blocked ear Neck pain Impacted cerumen of left ear Age-related osteoporosis without current pathological fracture Acute otitis media with effusion of left ear Insomnia History of diverticulitis Osteoarthritis, knee Osteopenia Diverticulitis Small bowel obstruction Hypercholesterolemia Allergic rhinitis Generalized anxiety disorder Pulmonary nodule Insomnia Surgical History History of cataract surgery History of tonsillectomy History of bilateral cataract extraction History of colonoscopy History of tonsillectomy Family History Father Obesity Stroke Mother Afib Son Diabetes Father No problems noted. Mother No problems noted. Son No problems noted. Social History Housing: House Alcohol intake: current Alcohol intake frequency: holidays/special occasions only Alcohol type: wine Comment: holidays 1 drink Patient Tobacco Use Status: Former Tobacco user Tobacco use type: Cigarette Years Smoked: 2012 stopped e-Cigarette/Vaping Use: Never Used Second Hand Smoke Exposure: Yes service: No Current occupational status: retired Cognitive needs: No Hearing needs: No Vision needs: Yes (reading glasses) Review of Systems Const Denies weight gain and Denies weight loss ENT Reports no additional complaints, Denies dysphagia and Denies odynophagia Card Reports no additional complaints Resp Reports no additional complaints GI Denies abdominal pain, Denies belching, Denies melena, Denies bloating, Denies change in bowel habits, Denies dysphagia, Denies excessive flatus, Denies dyspepsia, Denies heartburn, Denies diarrhea, Denies loose stools, Denies nausea, Denies odynophagia and Denies vomiting Musc Reports no additional complaints Neuro Reports no additional complaints Psych Reports no additional complaints Endo Reports no additional complaints Physical Exam Vital Signs: Last Vital Signs Pulse 74 12/25/23 11:08 BP 144/74 H 12/25/23 11:08 Pulse Ox 95 12/25/23 11:08 Oxygen Delivery Method Room Air 12/25/23 11:08 BMI result Body Mass Index 19.3 Const General: healthy appearing, no acute distress and well developed Nutritional Appearance: well nourished Orientation/consciousness: patient oriented x3 Resp Effort & Inspection: normal respiratory effort, able to speak in complete sentences, no tracheal deviation and symmetric chest movement Auscultation: clear to auscultation bilaterally Cardio Rate: regular rate GI Inspection: Yes normal to inspection and No distended Palpation (GI): Soft to palpation, not firm, nontender and No hepatosplenomegaly present Auscultation: normal bowel sounds General: Yes no CVA tenderness Back/Spine/Pelvis Back: no CVA tenderness Skin General skin exam: elasticity normal, turgor normal and dry skin Neuro General: patient oriented x3 Psych Appearance: grossly normal Mental Status: mental status grossly normal Affect: Anxious affect present Assessment & Plan Assessment & Plan (1) Constipation: Code(s): K59.00 - Constipation, unspecified Category: Medical Qualifiers: Constipation type: chronic idiopathic constipation Qualified Code(s): K59.04 - Chronic idiopathic constipation (2) Diverticulosis: Code(s): K57.90 - Diverticulosis of intestine, part unspecified, without perforation or abscess without bleeding Plan Continue MiraLax daily. May take senna on as-needed basis. Increase fiber, fluid intake and activity to promote better bowel motility. Follow-up in 6 months, sooner on as needed basis. She is agreeable to this plan and verbalizes understanding of instructions she was given the opportunity to ask questions and all questions answered. Thank you for allowing me to participate in her care Coding Level of Care Code Est Pt Level 3 (98432) Diagnoses Chronic idiopathic constipation K59.04 Constipation type: chronic idiopathic constipation Diverticulosis K57.90 Time Spent (min) 25 Comment 15 minutes spent with patient and additional 10 minutes spent reviewing her records
== END 2023-12-25 11:34 | disposition home or self-care (01) ==
PROVIDERS: PCP Internal Medicine; Visit Provider Nurse Practitioner Family
DX: K59.04 Chronic idiopathic constipation (principal); K57.90 Diverticulosis of intestine, part unspecified, without perforation or abscess without bleeding
CPT/HCPCS: 99213

== ENCOUNTER → 2023-12-25 10:58 | Outpatient (BNVA) | payer MEDICARE, SELFPAY | PROVIDERS: PCP Internal Medicine; Visit Provider Nurse Practitioner Family | DX: K59.04 Chronic idiopathic constipation (principal); K57.90 Diverticulosis of intestine, part unspecified, without perforation or abscess without bleeding | CPT/HCPCS: 99212 ==

== ENCOUNTER 2024-02-01 15:00 | Outpatient (AMB) | payer MEDICARE, SELFPAY ==
[2024-02-01 15:07] VITALS: BP 130/76; PULSE 61
--- NOTE | 2024-02-01 15:07 | MHC.PC.OV ---
Vital Signs 02/01/24 15:07 Height 5 ft 5 in Weight 120 lb BMI 20.0 BP 130/76 Blood Pressure Location Lt brachial Position Sitting Pulse 61 Pulse Source Pulse Oximeter Oxygen Delivery Method Room Air Intake Visit Reasons: EUSEBIA Manager Nicu Required: No Allergies aspirin [ASPIRIN] Allergy (Severe, Verified 02/01/24 15:07) ANAPHYLAXIS codeine [CODEINE] Allergy (Severe, Verified 02/01/24 15:07) ANAPHYLAXIS, itching naproxen [NAPROXEN] Allergy (Severe, Verified 02/01/24 15:07) ANAPHYLAXIS NSAIDS (Non-Steroidal Anti-Inflamma [NSAIDS (NON-STEROIDAL ANTI-INFLAMMA] Allergy (Severe, Verified 02/01/24 15:07) ANAPHYLAXIS (STATES CAN TAKE IBUPROFEN) doxycycline [DOXYCYCLINE] Allergy (Unknown, Verified 02/01/24 15:07) RASH ranitidine [From ZANTAC] Allergy (Unknown, Verified 02/01/24 15:07) UNKNOWN sertraline [From ZOLOFT] Allergy (Unknown, Verified 02/01/24 15:07) FELT LIKE I WAS ON FIRE Sulfa (Sulfonamide Antibiotics) [SULFA (SULFONAMIDE ANTIBIOTICS)] Allergy (Unknown, Verified 02/01/24 15:07) UNKNOWN Tobacco use date assessed: 02/01/24 Fall risk assessment: No Falls in past year Last assessed Fall Risk: 02/01/24 Dental Screening Dental Screen Date: 09/21/23 HPI EUSEBIA HPI Details 83-year-old female with past history of COPD, hypercholesterolemia, generalized anxiety disorder last seen September 2023 coming in for follow up.? In review of the notes, patient was recently seen by GI October 2023 for chronic constipation advised continue MiraLax daily and follow up in 2 months.? Patient was also seen in [facility] 10/21/2023 for chronic wound which did not appear infected advised to follow up with wound care. Patient was seen by wound care and given desitin for the open wound on her buttocks. She feels this wound has closed however she has a new wound on her buttocks that feels dry and cracked and is painful when she sits. The new symptoms began weeks-months ago and has not been worsening over that time. She mentions she has been having coughing fits within the last few months that happen periodically throughout the day and starts with a tickle in her throat. She did recently stop taking her daily allergy medication. Lastly she has been having bilateral foot pain and was seen by podiatry and given a cream for the arthritis which helped but is unsure of the name. [facility] Medical History Constipation due to outlet obstruction Aphthous stomatitis Plantar fasciitis of left foot Bug bite Right hip pain Hip pain Hamstring tendinitis of left thigh Cholelithiasis Diverticulitis Left flank pain Left leg swelling Claudication Left leg pain Neck pain Blocked ear Neck pain Impacted cerumen of left ear Age-related osteoporosis without current pathological fracture Acute otitis media with effusion of left ear Insomnia History of diverticulitis Osteoarthritis, knee Osteopenia Diverticulitis Small bowel obstruction Hypercholesterolemia Allergic rhinitis Generalized anxiety disorder Pulmonary nodule Insomnia Surgical History History of cataract surgery History of tonsillectomy History of bilateral cataract extraction History of colonoscopy History of tonsillectomy Family History Father Obesity Stroke Mother Afib Son Diabetes Father No problems noted. Mother No problems noted. Son No problems noted. Social History Housing: House Alcohol intake: current Alcohol intake frequency: holidays/special occasions only Alcohol type: wine Comment: holidays 1 drink Patient Tobacco Use Status: Former Tobacco user Tobacco use type: Cigarette Years Smoked: 2012 stopped e-Cigarette/Vaping Use: Never Used Second Hand Smoke Exposure: Yes service: No Current occupational status: retired Cognitive needs: No Hearing needs: No Vision needs: Yes (reading glasses) Questionnaire PHQ-9 Over the last 2 weeks, how often have you been bothered by any of the following problems? 1. Little interest or pleasure in doing things: not at all 2. Feeling down, depressed, or hopeless: not at all 3. Trouble falling or staying asleep, or sleeping too much: not at all 4. Feeling tired or having little energy: not at all 5. Poor appetite or overeating: not at all 6. Feeling bad about yourself - or that you are a failure or have let yourself or your family down: not at all 7. Trouble concentrating on things, such as reading the newspaper or watching television: not at all 8. Moving or speaking so slowly that other people could have noticed. Or the opposite - being so fidgety or restless that you have been moving around a lot more than usual: not at all 9. Thoughts that you would be better off or of hurting yourself in some way: not at all Total score: 0 Depression Screening Interpretation: Negative Depression Screening Done: Yes Source: Developed by Drs. Boubacar Valdez, Connie Ma, Anthony Coleman and colleagues, with an educational swathi from [employer]. Thrive Questionnaire Date Thrive assessed: 09/21/23 Are you currently unemployed and looking for a job?: No AUDIT C Alcohol Use Questionnaire (AUDIT-C) 1. How often do you have a drink containing alcohol?: Never 3. How often do you have six or more drinks on one occasion?: Never Total Score: 0 Score Reviewed/Action Taken: No EUSEBIA-7 AMB Questionnaire EUSEBIA-7 Date EUSEBIA - 7 assessed: 09/21/23 Feeling nervous, anxious, or on edge: 0 = Not at all Not being able to stop or control worryin = Not at all Worrying too much about different things: 0 = Not at all Trouble relaxin = Not at all Being so restless that it is hard to sit still: 0 = Not at all Becoming easily annoyed or irritable: 0 = Not at all Feeling afraid as if something awful might happen: 0 = Not at all Total EUSEBIA-7 score (0-4 normal; 5-9 mild; 10-14 moderate; 15-21 severe): 0 Source: Developed by Drs. Boubacar Valdez, Connie Ma, Anthony Coleman and colleagues, with an educational swathi from [employer]. Review of Systems Const Denies body aches, Denies chills and Denies fever(s) Eyes Reports no additional complaints ENT Reports no additional complaints Card Denies chest pain, Denies leg edema, Denies lightheadedness and Denies dyspnea Resp Reports cough (Occasional), Denies hemoptysis and Denies dyspnea GI Denies abdominal pain and Reports constipation Musc Details: Bilateral foot pain Skin/Breast Details: Rash on buttocks it was painful Physical exam (Primary Care) Vital Signs: Oxygen Delivery Method Room Air 02/01/24 15:07 Tobacco/Smoking Status: Tobacco use Status Tobacco use date assessed 02/01/24 02/01/24 15:09 Patient Tobacco Use Status Former Tobacco user 02/01/24 15:09 Tobacco use type Cigarette 02/01/24 15:09 e-Cigarette/Vaping Use Never Used 02/01/24 15:09 Depression Screening Interpretation: Negative Thrive Assessment: Date of Thrive Assessment Date Thrive assessed 09/21/23 02/01/24 15:09 Const General: cooperative, healthy appearing, comfortable and no acute distress Orientation/consciousness: patient oriented x3 HENMT Head: Yes normocephalic Ears: hearing grossly normal bilaterally General nose exam: Normal external nose present Eyes General: appearance normal, both eyes and all related structures Conjunctivae: conjunctivae normal Neck Neck: Yes full ROM and Yes no lymphadenopathy Resp Effort & Inspection: normal respiratory effort Cardio Rate: regular rate Rhythm: regular rhythm Skin Other: Dry, thickened, cracked skin in patches on bilateral buttocks without erythema, open lesions, drainage, or warmth. General skin exam: no rashes or lesions noted Full body images: 1. Area of thickened skin 2. Area of thickened skin Neuro General: patient oriented x3 Gait exam (Neuro): Normal gait present Extrem General: Yes normal to inspection, Yes full ROM and No edema Psych Affect: normal affect Attitude: cooperative Insight: Good insight present (Psych) Judgement: Good judgement present (Psych) Assessment and Plan Assessment & Plan (1) Pressure sore of ischial area: Comment: R 05/2023 Code(s): L89.309 - Pressure ulcer of unspecified buttock, unspecified stage Qualifiers: Pressure injury stage: stage 2 Laterality: right Qualified Code(s): L89.312 - Pressure ulcer of right buttock, stage 2 Plan: Pressure sore has resolved at this time no areas of open skin or tunneling and no evidence of infection. (2) Blood pressure elevated without history of HTN: Code(s): R03.0 - Elevated blood-pressure reading, without diagnosis of hypertension Plan: Not currently on medical management and blood pressure at goal today. Continue to avoid salt encouraged healthy diet and regular exercise. (3) Generalized anxiety disorder: Code(s): F41.1 - Generalized anxiety disorder (4) Cough: Code(s): R05.9 - Cough, unspecified Qualifiers: Cough type: acute Qualified Code(s): R05.1 - Acute cough Plan: Patient endorses occasional coughing fits that began with a tickle in the throat and resolved typically with a sip of water. Denies any fevers, phlegm production, or consistent symptoms. Advised patient to begin taking Claritin daily as these episodes maybe allergy induced and may use cough drops as needed. (5) Foot pain: Code(s): M79.673 - Pain in unspecified foot Plan: Patient complains of bilateral foot pain worse at night and occasionally while walking. Patient was advised to use Voltaren gel by fitness sales consultant and found good relief in this. May also use Tylenol as needed. (6) Dry skin: Code(s): L85.3 - Xerosis cutis Plan: Rash on the buttocks appears to be dry thickened skin without erythema, drainage, or areas of open skin. Advised patient to use Aquaphor or Vaseline twice daily on the area until symptoms improve. Reviewed red flag symptoms of infection and when to present for re-evaluation. Plan This note was constructed using voice recognition software. While every effort has been made to ensure accuracy and invoicing machine operator, still areas may have been included sometimes these areas may affect the content or meeting of the given symptoms. Total time spent caring for the patient today was 30 minutes. This includes time spent before the visit reviewing the chart, time spent during the visit, and time spent after the visit and documentation. Coding Level of Care Code Est Pt Level 4 (79383) Diagnoses Pressure injury of right ischium, stage 2 L89.312 Pressure injury stage: stage 2 Laterality: right Blood pressure elevated without history of HTN R03.0 Generalized anxiety disorder F41.1 Acute cough R05.1 Cough type: acute Foot pain M79.673 Dry skin L85.3 Additional Codes PHQ-9 - 32318 - PHQ-9 Billing: ([id number])
== END 2024-02-01 15:54 | disposition home or self-care (01) ==
PROVIDERS: PCP Internal Medicine
DX: L89.312 Pressure ulcer of right buttock, stage 2 (principal); R03.0 Elevated blood-pressure reading, without diagnosis of hypertension; F41.1 Generalized anxiety disorder; R05.1 Acute cough; M79.673 Pain in unspecified foot; L85.3 Xerosis cutis
CPT/HCPCS: 99214

== ENCOUNTER → 2024-02-01 15:00 | Outpatient (BNVA) | payer MEDICARE, SELFPAY | PROVIDERS: PCP Internal Medicine | DX: L89.312 Pressure ulcer of right buttock, stage 2 (principal); R03.0 Elevated blood-pressure reading, without diagnosis of hypertension; F41.1 Generalized anxiety disorder; R05.1 Acute cough; L85.3 Xerosis cutis; M79.673 Pain in unspecified foot | CPT/HCPCS: 96127; 99212 ==

== ENCOUNTER 2024-04-08 11:30 | Outpatient (REF) | payer MEDICARE, SELFPAY ==
--- NOTE | ~2024-04-08 | MM_ITS ---
EXAMINATION: MM SCREENING DIGITAL BREAST TOMOSYNTHESIS, BILATERAL CLINICAL INFORMATION: Screening. Asymptomatic. COMPARISON: Mammography: Comparison is made with available priors TECHNIQUE: Digital breast mammography with tomosynthesis is performed in both the craniocaudal and mediolateral oblique views along with computer-aided detection (CAD). FINDINGS: There are scattered areas of fibroglandular density (ACR BI-RADS breast composition Category b). There are no significant masses, abnormal calcifications, or other abnormalities. MM/MM tomosynthesis screening BI IMPRESSION: No mammographic evidence of malignancy. ASSESSMENT: BI-RADS BI-RADS 1 - Negative RECOMMENDATION: Routine annual mammography screening. 1 year F/U This examination should not preclude the clinical evaluation of a suspicious palpable abnormality. This patient's information was entered into a reminder system with a target due date for their next mammogram. Electronically signed by: Ginna Macedo DO 04/08/2024 12:41 PM PHIL
== END 2024-04-08 11:31 | disposition home or self-care (01) ==
LOC: HO.MAMMO 11:30
PROVIDERS: PCP Internal Medicine; Visit Provider Internal Medicine
DX: Z12.31 Encounter for screening mammogram for malignant neoplasm of breast (principal)
CPT/HCPCS: 77063; 77067

== ENCOUNTER → 2024-04-08 12:00 | Outpatient (BNV) | payer MEDICARE, SELFPAY | PROVIDERS: PCP Internal Medicine; Visit Provider Internal Medicine | DX: Z12.31 Encounter for screening mammogram for malignant neoplasm of breast (principal) | CPT/HCPCS: 77063; 77067 ==

== ENCOUNTER 2024-05-30 08:39 | Outpatient (AMB) | payer MEDICARE, SELFPAY ==
[2024-05-30 08:57] VITALS: BP 140/82; PULSE 73; O2SAT 95; BMI 20.1
--- NOTE | 2024-05-30 08:57 | A.OFFPC_ITS ---
Vital Signs 05/30/24 08:57 Height 5 ft 5 in Weight 121 lb BMI 20.1 BP 140/82 H Blood Pressure Location Lt brachial Position Sitting Pulse 73 Pulse Source Pulse Oximeter Pulse Oximetry (%) 95 Oxygen Delivery Method Room Air Intake Visit Reasons: ANNUAL Allergies aspirin [ASPIRIN] Allergy (Severe, Verified 05/30/24 08:57) ANAPHYLAXIS codeine [CODEINE] Allergy (Severe, Verified 05/30/24 08:57) ANAPHYLAXIS, itching naproxen [NAPROXEN] Allergy (Severe, Verified 05/30/24 08:57) ANAPHYLAXIS NSAIDS (Non-Steroidal Anti-Inflamma [NSAIDS (NON-STEROIDAL ANTI-INFLAMMA] Allergy (Severe, Verified 05/30/24 08:57) ANAPHYLAXIS (STATES CAN TAKE IBUPROFEN) doxycycline [DOXYCYCLINE] Allergy (Unknown, Verified 05/30/24 08:57) RASH ranitidine [From ZANTAC] Allergy (Unknown, Verified 05/30/24 08:57) UNKNOWN sertraline [From ZOLOFT] Allergy (Unknown, Verified 05/30/24 08:57) FELT LIKE I WAS ON FIRE Sulfa (Sulfonamide Antibiotics) [SULFA (SULFONAMIDE ANTIBIOTICS)] Allergy (Unknown, Verified 05/30/24 08:57) UNKNOWN Medication List - Last Reconciled 05/30/24 by Cole Gee MD acetaminophen ER (Tylenol Arthritis Pain) 650 mg PO .Q6 hours PRN 10 days blood pressure monitor (Blood Pressure Kit) As directed docusate sodium 100 mg PO BEDTIME fluticasone propionate 50 mcg/actuation (Flonase Allergy Relief) 1 spray intranasal DAILY 14 days lactobacillus combination no.4 (Probiotic) 3,000 mmu cells PO DAILY loratadine (Claritin) 10 mg PO DAILY multivitamin 1 tab PO DAILY polyethylene glycol 3350 (Miralax) 17 grams PO DAILY psyllium husk 1.04 grams (2 x 0.52 gram) PO DAILY sennosides (Natural Senna Laxative) 17.2 mg (2 x 8.6 mg) PO BEDTIME trazodone 75 mg (1/2 x 150 mg) PO BEDTIME 90 days Tobacco use date assessed: 05/30/24 Fall risk assessment: No Falls in past year Last assessed Fall Risk: 05/30/24 Dental Screening Dental Screen Date: 05/30/24 Did you have a dental visit in the last 12 months?: Yes Did you have a dental problem in the last 6 months where you did not have access to dental care?: No Was dental information given to patient?: Patient has dentist HPI ANNUAL HPI Details The patient is an 84-year-old female presenting with an ongoing issue of persistent coughing and allergies. The patient reports that the cough recurred approximately two weeks after completing a course of antibiotics for pneumonia. The patient denies any significant respiratory symptoms such as shortness of breath or wheezing currently affecting daily activities, but wheezing was noted during past evaluations leading to bronchiectasis diagnosis, linked to the patient?s previous smoking history causing chronic lung damage. The patient has a history of taking Claritin for allergies, which she has intermittently discontinued, possibly exacerbating her symptoms. The patient was previously diagnosed with pneumonia but reports recovery following antibiotic treatment. She consistently uses MiraLAX and [place] for bowel movement regulation, has a history of non-severe nose allergies, occasionally uses Flonase, and takes Trazodone for sleep at night. - Annual mammogram completed and results were normal. - Encouraged to monitor blood pressure r egularly at home for optimal readings. - Blood work needed; fasting before samp le collection recommended. - Reviewed the schedule for eye examinat ions. - Discussed vaccines: current with influ tal and COVID-19; reviewed necessity of RSV vaccination. - The patient drinks alcohol socially, a pproximately every three to four months. - The patient engages in a generally hea lthy diet but admits to occasional unhealthy snack consumption. - Past smoker, minimal physical activity reported due to fear of falling as a result of previous falls. -- Respiratory: Reports cough post-antib iotics without shortness of breath. - Ears/Nose/Throat: Denies pain but repo rts hearing difficulties and intermittent nose allergies. - Gastrointestinal: Denies pain, reports normal bowel habits with occasional hemorrhoid discomfort. - Genitourinary: Denies dysuria, reports nocturia once nightly. - Neurological: Denies dizziness or fall s, reports occasional balance issues. - General: Denies fever, nausea, and vom iting. - Labs: Pending blood work. - Imaging/scans: Historical X-rays indic ate lung scarring. [facility] Medical History Constipation due to outlet obstruction Aphthous stomatitis Plantar fasciitis of left foot Bug bite Right hip pain Hip pain Hamstring tendinitis of left thigh Cholelithiasis Diverticulitis Left flank pain Left leg swelling Claudication Left leg pain Neck pain Blocked ear Neck pain Impacted cerumen of left ear Age-related osteoporosis without current pathological fracture Acute otitis media with effusion of left ear Insomnia History of diverticulitis Osteoarthritis, knee Osteopenia Diverticulitis Small bowel obstruction Hypercholesterolemia Allergic rhinitis Generalized anxiety disorder Pulmonary nodule Insomnia Surgical History History of cataract surgery History of tonsillectomy History of bilateral cataract extraction History of colonoscopy History of tonsillectomy Family History Father Obesity Stroke Mother Afib Son Diabetes Father No problems noted. Mother No problems noted. Son No problems noted. Social History (Updated 05/30/24 @ 09:48 by Cole Gee MD) Housing: House Alcohol intake: current Alcohol intake frequency: holidays/special occasions only Alcohol type: wine Comment: holidays 1 drink (1-2 drinks Q4 months) Patient Tobacco Use Status: Former Tobacco user Tobacco use type: Cigarette Years Smoked: 2013 stopped e-Cigarette/Vaping Use: Never Used Second Hand Smoke Exposure: Yes service: No Current occupational status: retired Cognitive needs: No Hearing needs: No Vision needs: Yes (reading glasses) Questionnaire PHQ-9 Over the last 2 weeks, how often have you been bothered by any of the following problems? 1. Little interest or pleasure in doing things: several days 2. Feeling down, depressed, or hopeless: not at all 3. Trouble falling or staying asleep, or sleeping too much: nearly every day 4. Feeling tired or having little energy: not at all 5. Poor appetite or overeating: not at all 6. Feeling bad about yourself - or that you are a failure or have let yourself or your family down: several days 7. Trouble concentrating on things, such as reading the newspaper or watching television: not at all 8. Moving or speaking so slowly that other people could have noticed. Or the opposite - being so fidgety or restless that you have been moving around a lot more than usual: several days 9. Thoughts that you would be better off or of hurting yourself in some way: not at all Total score: 6 Depression Screening Interpretation: Positive Depression Screening Done: Yes 28183 - PHQ-9 Billing: Yes Source: Developed by Drs. Boubacar Valdez, Connie Ma, Anthony Coleman and colleagues, with an educational swathi from [employer]. Thrive Questionnaire Date Thrive assessed: 05/30/24 I am a: Patient What is your living situation today?: I have a steady place to live Within the past 12 months, did the food you bought not last and you didn't have the money to get more?: Never true Within the past 12 months, did you worry whether your food would run out before you got money to buy more?: Never true Do you have trouble paying for medicines?: No Do you have trouble getting transportation to medical appointments?: No Do you have trouble paying your heating and electricity bill?: No Do you have trouble taking care of your child, family member or friend?: No Do you have trouble with day-to-day activities such as bathing, preparing meals, shopping, managing finances, etc.?: No Are you currently unemployed and looking for a job?: No Are you interested in more education?: No Please select the resources that you would like help with: None Currently or been in a relationship where the following occur: I choose not to answer THRIVE Score: 0 AUDIT C Alcohol Use Questionnaire (AUDIT-C) 1. How often do you have a drink containing alcohol?: Monthly or less 2. How many drinks containing alcohol do you have on a typical day when you are drinking?: 1 or 2 3. How often do you have six or more drinks on one occasion?: Never Total Score: 1 EUSEBIA-7 AMB Questionnaire EUSEBIA-7 Date EUSEBIA - 7 assessed: 05/30/24 Feeling nervous, anxious, or on edge: 1 = Several days Not being able to stop or control worryin = Not at all Worrying too much about different things: 1 = Several days Trouble relaxin = Not at all Being so restless that it is hard to sit still: 0 = Not at all Becoming easily annoyed or irritable: 0 = Not at all Feeling afraid as if something awful might happen: 0 = Not at all Total EUSEBIA-7 score (0-4 normal; 5-9 mild; 10-14 moderate; 15-21 severe): 2 Source: Developed by Drs. Boubacar Valdez, Connie Ma, Anthony Coleman and colleagues, with an educational swathi from [employer]. Review of Systems Const Denies poor appetite and Denies weakness Eyes Denies no additional complaints ENT Reports Normal hearing present, Denies dizziness, Denies nasal congestion, Denies tinnitus and Denies sore throat Card Denies chest pain, Denies syncope, Denies rapid heart rate and Denies dyspnea Resp Denies cough and Denies dyspnea GI Denies change in stool character, Reports constipation, Denies diarrhea, Denies nausea and Denies vomiting Denies urinary frequency, Denies difficulty voiding and Denies dysuria Neuro Reports Normal hearing present, Denies confusion, Denies dizziness, Denies syncope and Denies weakness Psych Denies confusion Physical exam (Primary Care) Vital Signs: Last Vital Signs Pulse 73 05/30/24 08:57 BP 140/82 H 05/30/24 08:57 Pulse Ox 95 05/30/24 08:57 Oxygen Delivery Method Room Air 05/30/24 08:57 BMI result Body Mass Index 20.1 Tobacco/Smoking Status: Tobacco use Status Tobacco use date assessed 05/30/24 05/30/24 08:58 Patient Tobacco Use Status Former Tobacco user 05/30/24 09:48 Tobacco use type Cigarette 05/30/24 09:48 e-Cigarette/Vaping Use Never Used 05/30/24 09:48 PHQ-9: PHQ-9 Score PHQ-9: Total score 6 05/30/24 09:32 Depression Screening Interpretation: Positive Thrive Assessment: Date of Thrive Assessment Date Thrive assessed 05/30/24 05/30/24 08:58 Currently or been in a relationship where the following occur: I choose not to answer Const Other: impacted cerumen R ear General: No confusion Orientation/consciousness: No confusion HENMT Head: Yes normocephalic Ears: external ears normal and TM's normal bilaterally Face and sinus: Yes normal facial exam Mouth: moist mucous membranes Throat: Yes tonsils normal Eyes Conjunctivae: conjunctivae normal Pupils: Equal, round and reactive pupils present and Pupil accommodation reflex normal Direct Ophthalmoscopy: normal light reflex Neck Neck: No lymphadenopathy Thyroid: Thyroid normal Chest Chest palpation & inspection: normal inspection of the chest Resp Other: wheezing noted upper part of the lung field Effort & Inspection: normal respiratory effort and audible wheezes Auscultation: clear to auscultation bilaterally, no crackles, no wheezes and lung sounds not diminished Cardio Rate: regular rate Rhythm: regular rhythm Peripheral pulses: radial pulses present and dorsalis pedis present GI Other: guaiac negative Palpation (GI): no masses Auscultation: normal bowel sounds and normoactive bowel sounds Rectal Exam - Female: deferred Skin General skin exam: no rashes or lesions noted Rashes: no rashes Neuro General: No confusion Cranial nerves: Yes Equal, round and reactive pupils present and Yes Normal hearing present Cognition (Neuro): normal cognition Gait exam (Neuro): Normal gait present Motor exam (neuro): 5/5 motor strength present throughout Deep tendon reflexes (DTR's): Right brachioradialis reflex intensity grade: 2+, Left brachioradialis reflex intensity grade: 2+, Right patellar reflex intensity grade: 2+ and Left patellar reflex intensity grade: 2+ Extrem General: No edema Coding Level of Care Code Est Pt Prev Care >65y(66106) Diagnoses Annual physical exam Z00.00 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 Emphysema type: panlobular Hypercholesterolemia E78.00 Generalized anxiety disorder F41.1 Additional Codes PHQ-9 - 62216 - PHQ-9 Billing: Yes ([id number]) Assessment & Plan Assessment & Plan (1) Annual physical exam: Code(s): Z00.00 - Encounter for general adult medical examination without abnormal findings Category: Medical (2) COPD (chronic obstructive pulmonary disease): Code(s): J44.9 - Chronic obstructive pulmonary disease, unspecified Category: Medical Qualifiers: COPD type: emphysema Emphysema type: panlobular Qualified Code(s): J43.1 - Panlobular emphysema (3) Hypercholesterolemia: Code(s): E78.00 - Pure hypercholesterolemia, unspecified Category: Medical (4) Generalized anxiety disorder: Code(s): F41.1 - Generalized anxiety disorder Category: Medical Plan - Improve allergy control: Reinstate Claritin use for allergic rhinitis to address nasal congestion and post-nasal drip causing coughing. - Follow-up on respiratory health: Suggest home peak flow monitoring considering bronchiectasis, though current wheezing is noted without acute respiratory complaints. - Gastrointestinal management: Continuation of MiraLAX and use of Aquaphor for hemorrhoid discomfort. - Encourage completion of scheduled fasting blood tests to monitor metabolic and cardiovascular health indicators. - Refer for ear cleaning to address cerumen impaction contributing to hearing impairment. I thoroughly discussed the patient's likely chronic cough due to bronchiectasis compounded by allergy symptoms. Reinforcement of Claritin is recommended to lessen allergic manifestations and related cough. While wheezing detected warrants respiratory health attention, we will monitor for significant respiratory distress signs and maintain regular lung function checks. The patient?s concern regarding weight and diet was addressed with reassurance. Health screening tests, specifically illustrating the need for recent blood work, were reiterated. Vaccination advisories included addressing RSV, with flu and COVID-19 already accounted for. I advised earwax clearance by an gear shaper set up operator to enhance auditory c- Use Claritin consistently to manage allergies and reduce coughing. - Avoid smoking and secondhand smoke exposure. - Complete fasting blood tests as discussed. - Visit an gear shaper set up operator for earwax removal. - Increase water consumption and maintain a balanced diet to support overall health. - Monitor weight and diet, reducing unhealthy snacks. - Continue exercise caution against falls; consider balance-improvement activities if able. - Schedule routine follow-ups and notify regarding any new or worsening symptoms. Orders: Orders Comprehensive Met. Panel Today E78.00 - Pure hypercholesterolemia, unspecified Lipid Panel Today E78.00 - Pure hypercholesterolemia, unspecified Thyroid Stimulating Hormone Today E78.00 - Pure hypercholesterolemia, unspecified Vitamin B12 and Folate Today E78.00 - Pure hypercholesterolemia, unspecified Vitamin D 25-OH Total Today E78.00 - Pure hypercholesterolemia, unspecified Complete Blood Count Auto Diff Today E78.00 - Pure hypercholesterolemia, unspecified Free T4 (Free Thyroxine) Today E78.00 - Pure hypercholesterolemia, unspecified UA CC w/rflx Micro + Cult Today E78.00 - Pure hypercholesterolemia, unspecified, R30.0 - Dysuria
== END 2024-05-30 10:02 | disposition home or self-care (01) ==
PROVIDERS: PCP Internal Medicine; Visit Provider Internal Medicine
DX: J43.1 Panlobular emphysema (principal); E78.00 Pure hypercholesterolemia, unspecified; F41.1 Generalized anxiety disorder

== ENCOUNTER → 2024-05-30 08:39 | Outpatient (BNVA) | payer MEDICARE, SELFPAY | PROVIDERS: PCP Internal Medicine; Visit Provider Internal Medicine | DX: Z00.00 Encounter for general adult medical examination without abnormal findings (principal); J43.1 Panlobular emphysema; F41.1 Generalized anxiety disorder; E78.00 Pure hypercholesterolemia, unspecified | CPT/HCPCS: 96127; 99212 ==

== ENCOUNTER 2024-06-01 07:45 | Outpatient (REF) | payer MEDICARE, SELFPAY ==
--- OUTSIDE RECORDS SUMMARY | 2024-06-01 07:47 | XMS_ITS ---
Author Organization [facility] Address [address] [place] [address] Care Team Providers Care Subsurface Augmentee Operator Name Role Phone Cole Gee Primary Care Provider Jayne Yin Unavailable [phone] Kolton Gipson [phone] REASON FOR VISIT Buy 12 Toe Guy Encounters Encounter Location Date Provider Diagnosis [address] [address] 12/18/2023 Kolton Gipson Plan Of Treatment Next Appt Details Provider Name:Jayne rojas, 08/12/2024 03:45:00 PM, [address] [place] [address], [phone], Progress Notes * Siena VAZQUEZ EDOB:1939 (83 yo F)Acc No.[id number]:12/18/2023 Patient:?George Siena Valadez :1940???Age:83 Y???Sex:Female Address:[address] [place] [address] * true * Date:? Generated for Printi ng/Faxing/eTransmitting on:?06/01/2024 07:47 AM EST
--- OUTSIDE RECORDS SUMMARY | 2024-06-01 07:47 | XMS_ITS ---
[facility] Organization [facility] Address [address] [place] [address] Care Team Providers Care Pasteurizer Name Role Phone Cole Gee Primary Care Provider Jayne Yin Unavailable [phone] REASON FOR VISIT At Risk Footcare, Painful Nail(s) aggravated by shoes and causing difficulty standing/walking., Painful Toe(s) Medications Medication SIG (Take, Route, Frequency, Duration) Notes Start Date End Date Status predniSONE last pill tomorrow Not-Taking Antibiotic 7 days Not-Takin g Night Splint AFO - L1930 as directed Active ZyrTEC Active Vitamin B Complex Ac tive Mapap Arthritis Pain Active Lactulose 20 GM/30ML 15 ml Orally Once a day for 30 day(s) Active Claritin Active traZODone HCl 75mg A ctive MiraLax Active Voltaren 1 % as directed Externally Active Symbicort Not-Taking CeleXA 10 MG 2 tablets Orally Once a day Not-Taking Colace Not-Taking Nystatin Not-Taking LORazepam 1 MG 1 tablet Orally Twice a day Not-Taking Temazepam 15 MG 1 capsule at bedtime as needed Orally Once a day Not-Taking Problems Problem Type SNOMED Code ICD Code Onset Dates Problem Status W/U Status Risk Notes Problem Atherosclerosis of [place] artery of both lower extremities, with unspecified presence of clinical manifestation (I70.203) Active confirmed Q7(A), Q8(2B), Q9(1B,2 C) Problem Localized, primary osteoarthritis of the ankle and/or foot ([id number]) Arthritis of joint of lesser toe, left (M19.072) Active confirmed Procedures Procedure Date Ordered Date Performed Result Body Sit e 71617-EMZIFKR NAIL, 6 OR MORE 03/25/2024 N/A 84253-CHMA SKIN LESIONS, OVER 4 03/25/2024 N/A Encounters Encounter Location Date Provider Diagnosis [facility] [address] [place] [address] 03/25/2024 Jayne Luu Atherosclerosis of [place] artery of both lower extremities, with unspecified presence of clinical manifestation I70.203 ; Tinea unguium B35.1 ; Pain in right toe(s) M79.674 ; Pain in left toe(s) M79.675 ; Other hammer toe(s) (acquired), left foot M20.42 and Arthritis of joint of lesser toe, left M19.072 Assessments Encounter Date Diagnosis (ICD Code) Assessment Notes Treatment Notes Treatment Clinical Notes Section Notes 03/25/2024 Atherosclerosis of [place] artery of both lower extremities, with unspecified presence of clinical manifestation (ICD-10 - I70.203) Q7(A), Q8(2B), Q9(1B,2C) 03/25/2024 Tinea unguium (ICD-10 - B35.1) 03/25/2024 Pain in right toe(s) (ICD-10 - M79.674) 03/25/2024 Pain in left toe(s) (ICD-10 - M79.675) 03/25/2024 Other hammer toe(s) (acquired), left foot (ICD-10 - M20.42) 03/25/2024 Arthritis of joint of lesser toe, left (ICD-10 - M19.072) Plan Of Treatment Pending Test Test Name Order Date 15786-DJQJOAQ NAIL, 6 OR MORE 03/25/2024 06852-KVKY SKIN LESIONS, OVER 4 03/25/20 24 Next Appt Details Follow Up: 3 Months, Reason: Provider Name:Jayne rojas, 08/12/2024 03:45:00 PM, [address] [place], [address], Procedure Notes * Category Sub-Category Detail Notes Debride Nail 6-10 Nail debridement Performance o f this nail treatment by a nonprofessional would put this patients foot and overall health at risk. Therefore, debridement to affected nail(s), as described in exam, was performed extensively to reduce/remove overall nail length, girth, thickness, subungual debris, and necrotic tissue, by manual and/or electrical means through the use of a nail nipper and/or dremel-type grinder operator tool, to a more viable healthy nail plate or bed tissue 6-10. Silver nitrate used for any petechial bleeding as necessary. Definitive antifungal treatment options have been reviewed and discussed with the patient. The patient chooses, no pharmaceutical tx - 50147 Keratoma Treatment Parring or Cutting o f Benign Hyperkeratotic Lesion(s) (-57) More than 4 Lesions - The Benign hyperkeratotic lesions, as described in exam, were pared, and/or cut utilizing a sterile 15 blade, tissue nippers, and/or dremel - 58645, Q8 Progress Notes * Siena VAZQUEZ EDOB:1939 (84 yo F)Acc No.[id number]:03/25/2024 Progress Note Patient:?Siena VAZQUEZ E Provider:?Jayne Luu DPM :1940???Age:84 Y???Sex:Female D ate:03/25/2024 Address:[address] [place], [place] [id number] Pcp:Cole Gee Subjective: * Chief Complaints: * ???At Risk FootcarePainful N ail(s) aggravated by shoes and causing difficulty standing/walking.Painful Toe(s) * HPI: ???At Risk footcare:?Pt States Last PCP Visit:?Date?11/20/2023 ???Toe pain:?Nature:?tenderness.?Location:?Left foot.?Duration:?several years.?Course:?worse.?Aggravated by:?any pressure, shoes.?Treatments:?rest/alter normal daily activity, change in shoes.? * Medical History:? * Surgical History:? * Hospitalization/Major Diagno stic Procedure:? * Medications:?TakingVoltaren 1 % Gel as directed Externally Claritin Lactulose 20 GM/30ML Solution 15 ml Orally Once a day Mapap Arthritis Pain MiraLax traZODone HCl 75mg Vitamin B Complex ZyrTEC Night Splint AFO - L1930 as directed Taking Voltaren 1 % Gel as directed Externally Taking Claritin Taking Lactulose 20 GM/30ML Solution 15 ml Orally Once a day Taking Mapap Arthritis Pain Taking MiraLax Taking traZODone HCl 75mg Taking Vitamin B Complex Taking ZyrTEC Taking Night Splint AFO - L1930 as directed Not-Taking/PRNAntibiotic , Notes to Pharmacist: 7 dayspredniSONE , Notes to Pharmacist: last pill tomorrowLORazepam 1 MG Tablet 1 tablet Orally Twice a day Temazepam 15 MG Capsule 1 capsule at bedtime as needed Orally Once a day Symbicort CeleXA 10 MG Tablet 2 tablets Orally Once a day Nystatin Colace Not-Taking/PRN Antibiotic , Notes to Pharmacist: 7 daysNot-Taking/PRN predniSONE , Notes to Pharmacist: last pill tomorrowNot-Taking/PRN LORazepam 1 MG Tablet 1 tablet Orally Twice a day Not-Taking/PRN Temazepam 15 MG Capsule 1 capsule at bedtime as needed Orally Once a day Not-Taking/PRN Symbicort Not-Taking/PRN CeleXA 10 MG Tablet 2 tablets Orally Once a day Not-Taking/PRN Nystatin Not-Taking/PRN Colace Objective: * Vitals:? * Examination: ???General Examination: ?GENERAL APPEARANCE:?Reveals a pleasant, alert, well nourished, well- developed, well hydrated individual, who demonstrates proper attention to hygiene/body habitus, and is in no acute distress, Pt serves as own historian for office visit today.?ORIENTED:?person, place, and time.?Dermatologic: ?SKIN FINDINGS:?Skin exam reveals Keratotic lesion(s) located at , Skin exam reveals Keratotic lesion(s) located at, Medial plantar, TA, , SUB MTH (s), 1, B/L ,?Plantar, T1, heels B/L.?Nails: ?NAILS are:?Elongated, overgrown, dystrophic, lytic, greater than 3mm thick, discolored and friable with crumbly malodorous subungual debris, with pain on palpation , Elongated, overgrown, dystrophic, lytic, greater than 3mm thick, discolored and friable with crumbly malodorous subungual debris, with pain on palpation, T2, T3?1-5 Right foot.?Orthopedic: ?MUSCLE STRENGTH:?5/5 all groups in a symmetrical fashion, B/L.?DIGITAL DEFORMITIES:?Digital contracture, PIPJ, 2-5 B/L, incompl-reducible to push-up test, no over, nor underlapping?.?FOOTWEAR:? shoe gear properties exacerbate patients foot/toe deformity.?Neurological: ?SENSORY:?Neurological exam reveals intact sensorium, pain sensation normal, vibration sensation intact, pinprick sensation is normal in the lower extremities, Pt denies, anesthesia, burning, paresthesia, tingling, B/L?.?Vascular: ?DP PULSES(B):? 0/4, B/L.?PT PULSES(B):? 0/4, B/L.?CAPILLARY FILL TIME:? delayed, all digits, B/L.?TROPHIC CONDITION-TEXTURE/ELASTICITY/TURGOR/HAIR GROWTH(B):? decreased, fragile, thin, shiny skin, with sparse to absent hair growth, B/L.?TEMPERTURE GRADIENT(C):? decreased, cool to cool, proximal to distal, B/L.?PIGMENTATION:?pale, B/L.?EDEMA(C):?absent, B/L.?CLAUDICATION(C):?denies, B/L.?REST PAIN:?denies, B/L.?PARESTHESIA(C):?absent, B/L.?BURNING(C):?absent, B/L.?X-Rays - IMAGING REPORT: ?Clinical Indication(s):? Evaluate Biomechanical Deformity.?Views:? 3 views of Foot, AP, LO, MO, LEFT.?Findings:? normal bone and soft tissue density consistent for patients age and sex.?Digits:? show asymmetrical joint space narrowing at the PIPJ consistent with clinical finding of hammertoe deformity.?Fracture:? Negative fractures identified.? Assessment: * Assessment: 1.?Tinea unguium - B35.1???2 .?Atherosclerosis of [place] artery of both lower extremities, with unspecified presence of clinical manifestation - I70.203 (Primary)???Notes :Q7(A), Q8(2B), Q9(1B,2C)???3.?Pain in right toe(s) - M79.674???4.?Pain in left toe(s) - M79.675???5.?Other hammer toe(s) (acquired), left foot - M20.42???Specify :Chronic problem, Worse (4)???6.?Arthritis of joint of lesser toe, left - M19.072??? Plan: * Treatment: 2.?Tinea unguium?Procedure: 73941-TZGVECU NAIL, 6 OR MORE * Procedures:?Debride Nail 6-10:?Nail debridement?Performance of this nail treatment by a nonprofessional would put this patients foot and overall health at risk. Therefore, debridement to affected nail(s), as described in exam, was performed extensively to reduce/remove overall nail length, girth, thickness, subungual debris, and necrotic tissue, by manual and/or electrical means through the use of a nail nipper and/or dremel-type grinder operator tool, to a more viable healthy nail plate or bed tissue 6-10. Silver nitrate used for any petechial bleeding as necessary. Definitive antifungal treatment options have been reviewed and discussed with the patient. The patient chooses, no pharmaceutical tx - 26223.?Keratoma Treatment:?Parring or Cutting of Benign Hyperkeratotic Lesion(s)?(-57) More than 4 Lesions - The Benign hyperkeratotic lesions, as described in exam, were pared, and/or cut utilizing a sterile 15 blade, tissue nippers, and/or dremel - 34584, Q8.? * Procedure Codes:?39229 DEBRI DE NAIL, 6 OR MORE, Modifiers: XS 38949 TRIM SKIN LESIONS, OVER 4, Modifiers: XS , Q8 * Preventive Medicine:? ??Counseling:?Discussion:?-13: Office or other outpatient visit for the evaluation and management of an established patient, which required a medically appropriate history and/or examination and LOW level of DECISION MAKING for: 1 STABLE ACUTE UNCOMPLICATED PROBLEM, 2 OR MORE MINOR PROBLEMS, OR 1 STABLE CHRONIC PROBLEM, THAT POSE(S) A LOW RISK FOR MORBIDITY/MORTALITY. The visit on the day of the encounter encompassed interpreting the data and educating the patient as to the nature of their condition, treatment options available according to their individual PMH, meds, allergies, and overall health/living conditions, as well as any potential risks or complications that may occur from a failure to adhere to, and participate in, the recommended course of therapy. The discussion included a complete verbal, and/or written explanation of the examination results, any x-rays taken, the proposed diagnosis, and outline of the treatment plan. A schedule for future care needs was also explained. The patient verbalized an understanding of the instructions at this time and agreed to be an active participant in their treatment. If the patient should think of any questions or concerns after the visit, I have encouraged the patient to call the office.?Digital Surgery:?Digital surgery was discussed with the patient, including the risks of surgery(below), vs not having surgery (persistent pain, deformity, risk for skin ulceration/infection, loss of toe), the potential surg complications, the anesthesia, and the usual post-op course. No guarentees were given. We discussed the potential procedure complications including, but not limited to: pain, swelling, bleeding, scarring, numbness, infection, delayed/non healing, floppy/unstable/shorthened toe, recurrence, failure of the procedure, overcorrection leading to plantarflexed/downward positioned toe, recurrence, need for further surgery, as well as the possibility for loss of the toe itself. We discussed the use of local anesthesia, and the usual post-op course for healing. No guarentees were given. The patient verbally indicated a full understanding of the above conversation, and any other of their questions were answered to their satisfaction. Alternatives to the procedure were also discussed, including conservative care. I also discussed the usual post-operative course and gave no guarantees regarding outcome, We elected to try conservative treatment at the present time, due to the patients age, medical history, and circulatory constraints.?Digital Treatment:?I explained to the patient the possible etiologies of Hammertoes, including genetics/foot type/shoegear/activity level/exercise routine and the risks/benefits of all the different treatment options for their pain including: No treatment at all, Rest, Ice, New/supportive/wider/deeper Shoegear, Digital Padding/Strapping/Taping/Bracing/Gel protective sleeves, Foot/Ankle AFO Bracing, Stretching exercises, Deep Tissue Massage, Arch support/shoe inserts with splay metatarsal padding, and Custom orthoses. I insisted that any digital devices be removed daily and not worn overnight for safety. The patient is to carefully examine the toes daily for any skin irritation while using any splinting or padding device. The advantages and disadvantages of each option were discussed and the patients questions re: shoegear, padding, custom vs prefabricated inserts, activity level, and consistency in home treatment regimens for optimal success were answered to their verbally confirmed satisfaction. Hammertoe pads dispensed to patient. She was reminded these must be removed every evening before bed.?Shoe Gear Counseling:?The patient and I reviewed the types of shoes they should be wearing. My recommendation included obtaining a well-fitted shoe with a good supportive, non-foldable nor twistable sole, plenty of toe/room for the forefoot, and proper arch support. Based on todays examination, I recommended the patient look for new shoes, by having their feet professionally measured. We discussed that generally the best time of the day for a shoe fitting is the afternoon. Different shoes types and brands to best match the patients occupation and vocation were discussed. Specific brand selection will be up to the patient, their individual foot condition/deformities, and fit. The patient and I reviewed the standard new shoe break in period by wearing them for a few hours a day while checking for redness or sores as wear time is increased. The patient verbally confirmed to understanding the information discussed.? * Follow Up:?3 Months * Images: * Sign off status: Completed true * Provider:?Jayne Luu DPM Date:?05/25/2023 Generated for Wilbur newberry/Kamryn/Himanshu on:?06/01/2024 07:47 AM EST History and Physical Notes * HPI (History of Present Illness) Category Sub-Category Detail Notes Category Not es Toe pain Nature: tenderness Location: Left foot Duration: several years Course: worse Aggravated by: any pressure, shoes Treatments: rest/alter normal da mayda activity, change in shoes At Risk footcare Pt States Last PCP Visit: Date: 4 Examination Category Sub-Category Detail Notes Category Not es Neurological SENSORY: Neurological exa m reveals intact sensorium, pain sensation normal, vibration sensation intact, pinprick sensation is normal in the lower extremities, Pt denies, anesthesia, burning, paresthesia, tingling, B/L Dermatologic SKIN FINDINGS: Skin exam reveal s Keratotic lesion(s) located at , Skin exam reveals Keratotic lesion(s) located at, Medial plantar, TA, , SUB MTH (s), 1, B/L , Plantar, T1, heels B/L Orthopedic FOOTWEAR: shoe gear proper ties exacerbate patients foot/toe deformity DIGITAL DEFORMITIES: Digital contracture , PIPJ, 2-5 B/L, incompl-reducible to push-up test, no over, nor underlapping MUSCLE STRENGTH: 5/5 all groups in a symmetrical fashion, B/L General Examination GENERAL APPEARANCE: Reveals a pleasant, alert, well nourished, well-developed, well hydrated individual, who demonstrates proper attention to hygiene/body habitus, and is in no acute distress, Pt serves as own historian for office visit today ORIENTED: person, place, and t norah Vascular DP PULSES (B): 0/4, B/L PT PULSES (B): 0/4, B/L CAPILLARY FILL TIME: delayed, all digits , B/L TEMPERTURE GRADIENT (C): decreased, cool to cool, proximal to distal, B/L TROPHIC CONDITION-TEXTURE/ELASTICITY/TURGOR/HAIR GROWTH (B): decreased, fragile, thin, shiny skin, wi th sparse to absent hair growth, B/L EDEMA (C): absent, B/L CLAUDICATION (C): denies, B/L REST PAIN: denies, B/L PIGMENTATION: pale, B/L PARESTHESIA (C): absent, B/L BURNING (C): absent, B/L Nails NAILS are: Elongated, overg rown, dystrophic, lytic, greater than 3mm thick, discolored and friable with crumbly malodorous subungual debris, with pain on palpation , Elongated, overgrown, dystrophic, lytic, greater than 3mm thick, discolored and friable with crumbly malodorous subungual debris, with pain on palpation, T2, T3 1-5 Right foot X-Rays - IMAGING REPORT Findings: normal b one and soft tissue density consistent for patients age and sex Fracture: Negative fractures i dentified Digits: show asymmetrical raleigh int space narrowing at the PIPJ consistent with clinical finding of hammertoe deformity Views: 3 views of Foot, AP, LO, MO, LEFT Clinical Indication(s): Evaluate Biomech anical Deformity
--- OUTSIDE RECORDS SUMMARY | 2024-06-01 07:47 | XMS_ITS | Clinical Summary ---
Author Organization [facility] Address [address] [place] [address] Care Team Providers Care Research Support Specialist Name Role Phone Unavailable Primary Care Provider Unavailabl e Immunizations Name Administration Dates Next Due Influenza High-dose Quadriva lent Preservative Free 01/31/2022,01/21/2020 Influenza Quadrivalent Adjuvanted 01/27/2023 Influenza, High Dose Seasona l, Preservative Free 02/05/2018,01/05/2017,2016 Influenza, Injectable, MDCK, preservative free 01/29/2015 Influenza, seasonal, injecta ble, preservative free 01/24/2024 Influenza, trivalent, adjuvanted 02/01/2019 Pfizer Covid-19 Vaccine 12+ 01/24/2024, Pneumococcal Conjugate PCV 13 01/31/2019, 019 Pneumococcal Polysaccharide PPSV23 02/10/2020, RSV Adjuvant 03/04/2023 Tdap 06/25/2015 Zoster, Recombinant 04/16/2019,01/16/2019 Social History Tobacco Use Types Packs/Day Years Used Date Smoking Tobacco: Never Assessed Comments Unknown Sex and Gender Information Value Date Recorded Sex Assigned at Female 07/20/2023 1:38 PM EDT Legal Sex Female 10:21 AM EDT Gender Identity Female 07/20/2023 1:38 PM EDT Sexual Orientation Straight 07/20/2023 1: 38 PM EDT Plan of Treatment Health Maintenance Due Date Last Done Comments Depression Screening 1940 SDOH Screening 1940 Alcohol/Substance Use Screening 1954 Tobacco Screening 1952 DTaP/Tdap/Td Vaccines (2 - Td or Tdap) 06/25/2025 06/25/2015 Zoster Vaccines Completed 04/16/2019, 01/16/2019 Pneumococcal Vaccine: 65+ Years Completed 02/10/2020, 01/31/2019, 12/31/2018, Additional history exists RSV Patients and Patients Aged 60 years or older Completed 03/04/2023 COVID-19 Vaccine Completed 01/24/2024, , 02/20/2023, Additional history exists Influenza Vaccine Completed 01/24/2024, , 01/31/2022, Additional history exists HIB Vaccines Aged Out No longer eligi ble based on patient's age to complete this topic HPV Vaccines Aged Out No longer eligi ble based on patient's age to complete this topic Hepatitis A Vaccines Aged Out No long er eligible based on patient's age to complete this topic Hepatitis B Vaccines Aged Out No long er eligible based on patient's age to complete this topic IPV Vaccines Aged Out No longer eligi ble based on patient's age to complete this topic Meningococcal Vaccine Aged Out No papi tracey eligible based on patient's age to complete this topic RSV under 20 months Aged Out No longe r eligible based on patient's age to complete this topic Rotavirus Vaccines Aged Out No longer eligible based on patient's age to complete this topic Insurance MEDICARE [facility]
--- OUTSIDE RECORDS SUMMARY | 2024-06-01 07:47 | XMS_ITS | Patient Health Record ---
[facility] Organization [facility] Address [address] [facility] [place] [address] Care Team Providers Care Community Fundraiser Name Role Phone Cole Gee Primary Care Provider Jayne Yin Unavailable [phone] Kolton Gipson Unavailable [phone] Allergies Allergen (clinical drug ingredient) Drug/Non Drug Allergy documented on EMR Reaction Allergy Type Onset Date Status ibuprofen Advil Unknown Drug Allergy Active Aleve throat swelling-hives Drug Allergy Active sulfamethoxazole / trimethoprim Bactrim Unknown Drug Allergy Active Motrin Unknown Drug Allergy Active naproxen Naprosyn Unknown Drug Allergy Active Zantac Unknown Drug Allergy Active sertraline Zoloft Unknown Drug Allergy Active doxycycline Doxycycline Unknown Drug Allergy Act roberto carlos codeine Codeine Unknown Drug Allergy Active Non-steroidal anti-inflammatory agent (FN) NSAIDs Unknown Drug Allergy Active Reason For Referral No Information Medications Medication SIG (Take, Route, Frequency, Duration) Notes Start Date End Date Status Voltaren 1 % as directed Externally Active LORazepam 1 MG 1 tablet Orally Twice a day Not-Taking predniSONE last pill tomorrow Not-Taking Antibiotic 7 days Not-Takin g Night Splint AFO - L1930 as directed Active Mapap Arthritis Pain Active Lactulose 20 GM/30ML 15 ml Orally Once a day for 30 day(s) Active Symbicort Not-Taking Claritin Active Temazepam 15 MG 1 capsule at bedtime as needed Orally Once a day Not-Taking CeleXA 10 MG 2 tablets Orally Once a day Not-Taking ZyrTEC Active Vitamin B Complex Ac tive traZODone HCl 75mg A ctive Colace Not-Taking MiraLax Active Nystatin Not-Taking Immunizations Vaccine Route Administration Date Status Comme nts Influenza Unknown 01/06/2022 Administered COVID-19 Moderna Vaccine Unknown 02/26/2021 Administered 1st 06/10/2020 2nd 07/08/2020 Social History Tobacco Use: Social History Observation Description Date Details (start date - stop date) Former Smoker NA - NA Tobacco Use/Smoking Question Answer Notes Are you a: former smoker Additional Findings: Tobacco Non-User Current no n-smoker Alcohol Screen Question Answer Notes Did you have a drink contain ing alcohol in the past year? Yes How often did you have a dri nk containing alcohol in the past year? Monthly or less (1 point) Points 1 Interpretation Negative Tobacco use other than smoking: Question Answer Notes Are you an other tobacco user? No Problems Problem Type SNOMED Code ICD Code Onset Dates Problem Status W/U Status Risk Notes Problem Atherosclerosis of jackson arteries of the extremities (517827694208890) Unspecified atherosclerosis of jackson arteries of extremities, bilateral legs (I70.203) Active confirmed Problem Acquired hammer toe of right foot (0429531181367864) Other hammer toe(s) (acquired), right foot (M20.41) Active confirmed Problem Acquired hammer toe of left foot (2338402185363949) Other hammer toe(s) (acquired), left foot (M20.42) Active confirmed Problem Atherosclerosis of jackson artery of both lower extremities, with unspecified presence of clinical manifestation (I70.203) Active confirmed Q7(A), Q8(2B), Q9(1B,2 C) Problem Localized, primary osteoarthritis of the ankle and/or foot (676453952) Arthritis of joint of lesser toe, left (M19.072) Active confirmed Vital Signs Blood pressure diastolic 68 mm Hg 12/18/2023 Height 5 ft 4 in in 12/18/2023 Blood pressure systolic 115 mm Hg 12/18/2023 Weight 116 lbs 12/18/2023 BMI 19.91 kg/m2 12/18/2023 Procedures Procedure Date Ordered Date Performed Result Body Sit e 95919-YCHFWXB NAIL, 6 OR MORE 03/25/2024 N/A 53941-OMLX SKIN LESIONS, OVER 4 03/25/2024 N/A Encounters Encounter Location Date Provider Diagnosis [facility] [address] [place] [address] 06/19/2023 Kolton Gipson Tinea unguium B35.1 ; Pain in right toe(s) M79.674 ; Unspecified atherosclerosis of jackson arteries of extremities, bilateral legs I70.203 ; Pain in left toe(s) M79.675 ; Other hammer toe(s) (acquired), left foot M20.42 ; Other hammer toe(s) (acquired), right foot M20.41 ; Subungual hematoma of toenail of right foot, initial encounter S90.221A and Plantar fascial fibromatosis M72.[address] [address] 09/18/2023 Kolton Gipson Tinea unguium B35.1 ; Pain in right toe(s) M79.674 ; Unspecified atherosclerosis of jackson arteries of extremities, bilateral legs I70.203 ; Pain in left toe(s) M79.675 ; Other hammer toe(s) (acquired), left foot M20.42 ; Other hammer toe(s) (acquired), right foot M20.41 and Plantar fascial fibromatosis M72.[address] [address] 12/18/2023 Kolton Gipson Tinea unguium B35.1 ; Pain in right toe(s) M79.674 ; Unspecified atherosclerosis of jackson arteries of extremities, bilateral legs I70.203 ; Pain in left toe(s) M79.675 ; Other hammer toe(s) (acquired), left foot M20.42 ; Other hammer toe(s) (acquired), right foot M20.41 and Plantar fascial fibromatosis M72.[address] [address] 03/25/2024 Jayne Luu Atherosclerosis of jackson artery of both lower extremities, with unspecified presence of clinical manifestation I70.203 ; Tinea unguium B35.1 ; Pain in right toe(s) M79.674 ; Pain in left toe(s) M79.675 ; Other hammer toe(s) (acquired), left foot M20.42 and Arthritis of joint of lesser toe, left M19.072 [facility] [address] [address] 09/18/2023 Kolton Gipson [facility] [address] [address] 12/18/2023 Kolton Gipson Assessments Encounter Date Diagnosis (ICD Code) Assessment Notes Treatment Notes Treatment Clinical Notes Section Notes 06/19/2023 Tinea unguium (ICD-10 - B35.1) 06/19/2023 Pain in right toe(s) (ICD-10 - M79.674) 09/18/2023 Tinea unguium (ICD-10 - B35.1) 09/18/2023 Pain in right toe(s) (ICD-10 - M79.674) 12/18/2023 Tinea unguium (ICD-10 - B35.1) 12/18/2023 Pain in right toe(s) (ICD-10 - M79.674) 03/25/2024 Tinea unguium (ICD-10 - B35.1) 03/25/2024 Atherosclerosis of jackson artery of both lower extremities, with unspecified presence of clinical manifestation (ICD-10 - I70.203) Q7(A), Q8(2B), Q9(1B,2C) 03/25/2024 Pain in right toe(s) (ICD-10 - M79.674) 12/18/2023 Unspecified atherosclerosis of jackson arteries of extremities, bilateral legs (ICD-10 - I70.203) 09/18/2023 Unspecified atherosclerosis of jackson arteries of extremities, bilateral legs (ICD-10 - I70.203) 06/19/2023 Unspecified atherosclerosis of jackson arteries of extremities, bilateral legs (ICD-10 - I70.203) 06/19/2023 Pain in left toe(s) (ICD-10 - M79.675) 09/18/2023 Pain in left toe(s) (ICD-10 - M79.675) 03/25/2024 Pain in left toe(s) (ICD-10 - M79.675) 12/18/2023 Pain in left toe(s) (ICD-10 - M79.675) 09/18/2023 Other hammer toe(s) (acquired), left foot (ICD-10 - M20.42) 03/25/2024 Other hammer toe(s) (acquired), left foot (ICD-10 - M20.42) 12/18/2023 Other hammer toe(s) (acquired), left foot (ICD-10 - M20.42) 06/19/2023 Other hammer toe(s) (acquired), left foot (ICD-10 - M20.42) 06/19/2023 Other hammer toe(s) (acquired), right foot (ICD-10 - M20.41) 09/18/2023 Other hammer toe(s) (acquired), right foot (ICD-10 - M20.41) 03/25/2024 Arthritis of joint of lesser toe, left (ICD-10 - M19.072) 12/18/2023 Other hammer toe(s) (acquired), right foot (ICD-10 - M20.41) 12/18/2023 Plantar fascial fibromatosis (ICD-10 - M72.2) 06/19/2023 Subungual hematoma of toenail of right foot, initial encounter (ICD-10 - S90.221A) 09/18/2023 Plantar fascial fibromatosis (ICD-10 - M72.2) Patient Educated with: HEEL CORD STRETCHES.pdf (HEEL CORD STRETCHES.pdf) Patient Educated with: RICE THERAPY.pdf (RICE THERAPY.pdf) Patient Educated with: INSTRUCTIONS FOR PROPER USE OF ORTHOTICS.pdf (INSTRUCTIONS FOR PROPER USE OF ORTHOTICS.pdf) 06/19/2023 Plantar fascial fibromatosis (ICD-10 - M72.2) Patient Educated with: HEEL CORD STRETCHES.pdf (HEEL CORD STRETCHES.pdf) Patient Educated with: RICE THERAPY.pdf (RICE THERAPY.pdf) Patient Educated with: INSTRUCTIONS FOR PROPER USE OF ORTHOTICS.pdf (INSTRUCTIONS FOR PROPER USE OF ORTHOTICS.pdf) Plan Of Treatment Pending Test Test Name Order Date X ray : Foot, left 3V 03/13/2023 26937-NNDTQPT NAIL, 6 OR MORE 03/25/2024 92543-UVQWGEF NAIL, 6 OR MORE 10/09/2017 27722-BLYDMEO NAIL, 6 OR MORE 04/10/2017 03768-KRQGRPQ NAIL, 6 OR MORE 07/10/2017 07543-NXRLBKB NAIL, 6 OR MORE 01/10/2018 16641-OCYHMNV NAIL, 6 OR MORE 04/25/2016 64566-KLXPUMQ NAIL, 6 OR MORE 07/25/2016 21385-PRKHWGH NAIL, 6 OR MORE 10/24/2016 22289-FEJDNIW NAIL, 6 OR MORE 01/16/2017 55281-WVJBZMC NAIL, 1-5 11/11/2015 56537-EQMCLWJ NAIL, 1-5 01/28/2016 96591-XDHUMXW NAIL, 1-5 08/01/2013 96020-HDLORWK NAIL, 1-5 04/24/2014 75615-RHJPBUS NAIL, 1-5 08/06/2014 57320-NVGUNTB NAIL, 1-5 11/05/2014 55945-PLDBGVS NAIL, 1-5 04/01/2015 09950-EBGYZTT NAIL, 1-5 07/27/2015 07375-Fnnsmdzj Plate 07/27/2015 03957-Iexlcxxf Plate 08/06/2014 63945-Gsqiimdh Plate 11/05/2014 02971-Ckbegsco Plate 10/24/2013 21371-Rcimjuvj Plate 04/24/2014 09244-Cvoacsvu Plate 01/18/2016 13322-Rgpnjcij Plate 01/27/2014 18538- Debride <25 sq cm 01/27/2014 79677- Debride <25 sq cm 10/24/2013 56246- Debride <25 sq cm 08/01/2013 62114- Debride <25 sq cm 01/28/2016 07245-GERL SKIN LESIONS, OVER 4 01/01/20 19 96490-FCKZ SKIN LESIONS, OVER 4 04/01/20 19 46826-KQFL SKIN LESIONS, OVER 4 07/01/19 20 96947-ZJBF SKIN LESIONS, OVER 4 10/07/19 20 63523-DLOY SKIN LESIONS, OVER 4 01/27/20 20 80119-TKTB SKIN LESIONS, OVER 4 06/03/19 21 11994-YGPV SKIN LESIONS, OVER 4 09/22/19 21 05990-SHTH SKIN LESIONS, OVER 4 01/05/20 21 68063-MFJN SKIN LESIONS, OVER 4 05/10/19 04845-CNNS SKIN LESIONS, OVER 4 08/10/19 22 04283-GDAX SKIN LESIONS, OVER 4 10/10/19 18 06415-ZAXV SKIN LESIONS, OVER 4 07/11/19 18 08725-FBHK SKIN LESIONS, OVER 4 01/11/20 18 14851-RRMK SKIN LESIONS, OVER 4 03/25/20 24 27378-OZDJ SKIN LESIONS, OVER 4 07/27/19 16 44006-CEIX SKIN LESIONS, OVER 4 04/01/20 15 29619-HUUK SKIN LESIONS, OVER 4 11/11/19 16 84618-OOZT SKIN LESIONS, OVER 4 01/28/20 16 04890-IMOQ SKIN LESIONS, OVER 4 04/10/20 17 91337-FDFJ SKIN LESIONS, OVER 4 01/17/20 17 48674-FPIZ SKIN LESIONS, OVER 4 07/26/19 17 92486-RLKY SKIN LESIONS, OVER 4 10/25/19 17 02475-XBVZ SKIN LESIONS, OVER 4 04/25/20 16 97182-Pavh. Subungual Hematoma 3 41266-LDTQ NAIL(S) 01/28/2016 02387-YUOA NAIL(S) 11/11/2015 65537-MIKZ NAIL(S) 04/01/2015 86193-AHAG NAIL(S) 07/27/2015 Next Appt Details Provider Name:Jayne Titus crystal, 08/12/2024 03:45:00 PM, [address] [facility], [place], [address], Insurance Providers Payer Name Payer Address Payer Phone Subscriber Number Group Number Insured Name Patient Relationship to Insured Coverage Start Date Coverage End Date Medicare National Govt [employer] [address] [place] [address] [phone] [id number] Siena Vazquez Self - patient is the insured [employer] [address] [place] [address] [id number] Siena Vazquez Self - patient is the insured Medical (General) History Medical History History ICD Code asthma Measles Mumps Chicken pox Surgical History Surgery Date(Month/Year) cataract both eyes 10/06/2014 10/20/2014 Hospitalization History Reason Date(Month/Year) Patient admitted to [facility] er x 3wks; diverticulitis 01/2015 [facility] [place] for non stoping blood on toe. 01/06 06/23 [facility] [place] for allergic reaction to Zoloft. 10/01/17 [facility] [place] [facility] for dehydration - then skilled nursing 04/2018 [facility] [place] [facility] [place]-Diverticulitis 4 hrs 05/20/22
[2024-06-01 08:06] LABS: MANUAL DIFF FLAG NO
[2024-06-01 08:41] LABS: Basophils Percent Auto 1.2 % (0-2); Eosinophils Percent Auto 1.6 % (0-4); Hematocrit 34.8 % (37.0-47.0); Hemoglobin 11.9 g/dl (12.0-16.0); Imm Gran Abs Auto 0.01 X10*3/uL (0.00-0.03); Imm Gran Pct Auto 0.4 % (0.0-0.4); Lymphocytes Absolute Auto 0.9 X10*3/uL (1.2-4.9); Lymphocytes Percent Auto 33.9 % (20-40); Mean Corpuscular HGB Conc 34.2 g/dl (31.0-35.0); Mean Corpuscular Hemoglobin 31.3 pg (27.0-33.0); Mean Corpuscular Volume 91.6 fL (80.0-98.0); Mean Platelet Volume 10.6 fL (9.4-12.3); Monocytes Absolute Auto 0.3 X10*3/uL (0.1-1.2); Monocytes Percent Auto 10.8 % (2-11); Neutrophils Absolute Auto 1.3 x10*3/uL (2.0-8.3); Neutrophils Percent Auto 52.1 % (45-73); Platelet Count 165 X10*3/uL (160-400); Red Cell Distribution Width 11.9 % (11.0-16.0)
[2024-06-01 08:50] LABS: White Blood Count 2.5 X10*3/uL (4.8-10.8)
[2024-06-01 09:17] LABS: Alanine Aminotransferase 12 U/L (0-31); Albumin Level 4.1 g/dL (3.5-5.0); Alkaline Phosphatase 81 U/L (39-117); Anion Gap 11 (12-20); Aspartate Amino Transferase 28 U/L (5-31); Bilirubin Total 0.6 mg/dL (0.0-1.0); Blood Urea Nitrogen 12 mg/dL (9-16); Calcium 9.5 mg/dL (8.4-10.2); Carbon Dioxide 26 mmol/L (22-29); Chloride 100 mmol/L (96-108); Cholesterol 218 mg/dL (<200); Estimated Glomerular Filt Rate > 60; Glucose Random 75 mg/dL (60-115); HDL Cholesterol 74 mg/dL (>40); LDL Cholesterol Calculated 132 mg/dL (<100); Sodium 133 mmol/L (135-145); Total Protein 6.9 g/dL (6.5-8.0); Triglycerides 60 mg/dL (<150)
[2024-06-01 09:37] LABS: Free T4 (Free Thyroxine) 1.07 ng/dL (0.71-1.85); Thyroid Stimulating Hormone 0.83 uIU/mL (0.32-4.0); Vitamin D 25-OH Total 91.4 ng/mL (>30)
[2024-06-01 09:42] LABS: Folate 17.3 ng/mL (> or = 4.0); Vitamin B12 559 pg/mL (200-900)
== END 2024-06-01 07:46 | disposition home or self-care (01) ==
LOC: HO.LAB 07:45
PROVIDERS: PCP Internal Medicine; Visit Provider Internal Medicine
DX: E78.00 Pure hypercholesterolemia, unspecified (principal)
CPT/HCPCS: 36415; 80053; 80061; 82306; 82607; 82746; 84439; 84443; 85025

== ENCOUNTER 2024-06-17 10:35 | Outpatient (AMB) | payer MEDICARE, SELFPAY ==
--- NOTE | 2024-06-17 10:42 | MHC.OFFVIS ---
Vital Signs 06/17/24 10:43 Height 5 ft 5 in Weight 118 lb 2.684 oz BMI 19.7 BP 136/64 Blood Pressure Location Rt brachial Position Sitting Pulse 72 Pulse Source Pulse Oximeter Pulse Oximetry (%) 99 Oxygen Delivery Method Room Air Intake Visit Reasons: 6 month follow up Intake Note: ESTABLISHED PATIENT for constipation mgmt. Chief Complaint; Pt reports that they are presenting per their baseline. Pt does have chronic loose stools but nothing beyond their normal presentation. Pt denies any other GI concerns. Life Enrichment Director Required: No Accompanied by: Family/Other Allergies aspirin [ASPIRIN] Allergy (Severe, Verified 06/17/24 10:42) ANAPHYLAXIS codeine [CODEINE] Allergy (Severe, Verified 06/17/24 10:42) ANAPHYLAXIS, itching naproxen [NAPROXEN] Allergy (Severe, Verified 06/17/24 10:42) ANAPHYLAXIS NSAIDS (Non-Steroidal Anti-Inflamma [NSAIDS (NON-STEROIDAL ANTI-INFLAMMA] Allergy (Severe, Verified 06/17/24 10:42) ANAPHYLAXIS (STATES CAN TAKE IBUPROFEN) doxycycline [DOXYCYCLINE] Allergy (Unknown, Verified 06/17/24 10:42) RASH ranitidine [From ZANTAC] Allergy (Unknown, Verified 06/17/24 10:42) UNKNOWN sertraline [From ZOLOFT] Allergy (Unknown, Verified 06/17/24 10:42) FELT LIKE I WAS ON FIRE Sulfa (Sulfonamide Antibiotics) [SULFA (SULFONAMIDE ANTIBIOTICS)] Allergy (Unknown, Verified 06/17/24 10:42) UNKNOWN HPI HPI 6 month follow up: Details: LAST VISIT: Constipation Diverticulosis Plan Continue MiraLax daily. May take senna on as-needed basis. Increase fiber, fluid intake and activity to promote better bowel motility. Follow-up in 6 months, sooner on as needed basis. She is agreeable to this plan and verbalizes understanding of instructions she was given the opportunity to ask questions and all questions answered. TODAY'S VISIT Patient is here today for follow-up. Patient is accompanied by her friend. Patient denies any GI concerning symptoms except occasional loose stools. Patient reports that she has normally loose stools almost every day. Only take senna as needed maybe once a week. Not taking any fiber at this time. Denies any change in her appetite. Denies melena, hematochezia, unintentional weight loss or ribbon like stools. Patient denies any dyspepsia, dysphagia or odynophagia. [facility] Medical History Constipation due to outlet obstruction Aphthous stomatitis Plantar fasciitis of left foot Bug bite Right hip pain Hip pain Hamstring tendinitis of left thigh Cholelithiasis Diverticulitis Left flank pain Left leg swelling Claudication Left leg pain Neck pain Blocked ear Neck pain Impacted cerumen of left ear Age-related osteoporosis without current pathological fracture Acute otitis media with effusion of left ear Insomnia History of diverticulitis Osteoarthritis, knee Osteopenia Diverticulitis Small bowel obstruction Hypercholesterolemia Allergic rhinitis Generalized anxiety disorder Pulmonary nodule Insomnia Surgical History History of cataract surgery History of tonsillectomy History of bilateral cataract extraction History of colonoscopy History of tonsillectomy Family History Father Obesity Stroke Mother Afib Son Diabetes Father No problems noted. Mother No problems noted. Son No problems noted. Social History Housing: House Alcohol intake: current Alcohol intake frequency: holidays/special occasions only Alcohol type: wine Comment: holidays 1 drink (1-2 drinks Q4 months) Patient Tobacco Use Status: Former Tobacco user Tobacco use type: Cigarette Years Smoked: 2012 stopped e-Cigarette/Vaping Use: Never Used Second Hand Smoke Exposure: Yes service: No Current occupational status: retired Cognitive needs: No Hearing needs: No Vision needs: Yes (reading glasses) Review of Systems Const Denies weight gain and Denies weight loss ENT Reports no additional complaints, Denies dysphagia and Denies odynophagia Card Reports no additional complaints Resp Reports no additional complaints GI Denies abdominal pain, Denies belching, Denies melena, Denies bloating, Denies change in bowel habits, Denies dysphagia, Denies excessive flatus, Denies dyspepsia, Denies heartburn, Denies diarrhea, Reports loose stools, Denies nausea, Denies odynophagia and Denies vomiting Reports no additional complaints Musc Reports no additional complaints Neuro Reports no additional complaints Psych Reports no additional complaints Endo Reports no additional complaints Physical Exam Vital Signs: Last Vital Signs Pulse 72 06/17/24 10:43 BP 136/64 06/17/24 10:43 Pulse Ox 99 06/17/24 10:43 Oxygen Delivery Method Room Air 06/17/24 10:43 BMI result Body Mass Index 19.7 Const General: healthy appearing, no acute distress and well developed Nutritional Appearance: well nourished Orientation/consciousness: patient oriented x3 Resp Effort & Inspection: normal respiratory effort, able to speak in complete sentences, no tracheal deviation and symmetric chest movement Auscultation: clear to auscultation bilaterally Cardio Rate: regular rate GI Inspection: Yes normal to inspection and No distended Palpation (GI): Soft to palpation, not firm, nontender and No hepatosplenomegaly present Auscultation: normal bowel sounds General: Yes no CVA tenderness Back/Spine/Pelvis Back: no CVA tenderness Skin General skin exam: elasticity normal, turgor normal and dry skin Neuro General: patient oriented x3 Psych Appearance: grossly normal Mental Status: mental status grossly normal Affect: Anxious affect present Assessment & Plan Assessment & Plan (1) Constipation: Code(s): K59.00 - Constipation, unspecified Category: Medical Qualifiers: Constipation type: chronic idiopathic constipation Qualified Code(s): K59.04 - Chronic idiopathic constipation (2) Diverticulosis: Code(s): K57.90 - Diverticulosis of intestine, part unspecified, without perforation or abscess without bleeding (3) Diarrhea: Code(s): R19.7 - Diarrhea, unspecified Qualifiers: Diarrhea type: functional diarrhea Qualified Code(s): K59.1 - Functional diarrhea Plan Discussed with patient about increasing fiber in her diet. Patient will try Benefiber dual action biotic with pre and probiotics. Increase fluid intake and activity to promote better bowel motility. Patient can follow-up with us as needed. Currently she is feeling well and denies any GI concerning symptoms. Patient will call us if she will have any GI issues. Both patient and her friend are agreeable to plan of care and verbalizes understanding of instructions. They were given the opportunity to ask questions and all questions answered. Thank you for allowing me to participate in her care Coding Level of Care Code Est Pt Level 3 (62487) Diagnoses Chronic idiopathic constipation K59.04 Constipation type: chronic idiopathic constipation Diverticulosis K57.90 Functional diarrhea K59.1 Diarrhea type: functional diarrhea Time Spent (min) 25 Comment 15 minutes spent with patient and additional 10 minutes spent reviewing her records
[2024-06-17 10:43] VITALS: BP 136/64; PULSE 72; O2SAT 99; BMI 19.7
== END 2024-06-17 11:26 | disposition home or self-care (01) ==
PROVIDERS: PCP Internal Medicine; Visit Provider Nurse Practitioner Family
DX: K59.04 Chronic idiopathic constipation (principal); K57.90 Diverticulosis of intestine, part unspecified, without perforation or abscess without bleeding; K59.1 Functional diarrhea
CPT/HCPCS: 99213

== ENCOUNTER → 2024-06-17 10:35 | Outpatient (BNVA) | payer MEDICARE, SELFPAY | PROVIDERS: PCP Internal Medicine; Visit Provider Nurse Practitioner Family | DX: K59.04 Chronic idiopathic constipation (principal); K57.90 Diverticulosis of intestine, part unspecified, without perforation or abscess without bleeding; K59.1 Functional diarrhea | CPT/HCPCS: 99212 ==

== ENCOUNTER 2024-11-27 13:16 | Outpatient (AMB) | payer MEDICARE, SELFPAY ==
[2024-11-27 13:15] VITALS: BP 136/78; PULSE 81; RESP 18; TEMP 36.3; O2SAT 96; BMI 20.3
--- NOTE | 2024-11-27 13:15 | A.OFFPC_ITS ---
Vital Signs 11/27/24 13:15 Height 5 ft 5 in Weight 122 lb 2 oz BMI 20.3 BP 136/78 Blood Pressure Location Lt brachial Position Sitting Respiration 18 Pulse 81 Pulse Source Pulse Oximeter Temp 97.3 F Temp Source Temporal Artery Scan Pulse Oximetry (%) 96 Oxygen Delivery Method Room Air Intake Visit Reasons: cholesterol, EUSEBIA Allergies aspirin (ASPIRIN) Allergy (Severe, Verified 11/27/24 13:15) ANAPHYLAXIS codeine (CODEINE) Allergy (Severe, Verified 11/27/24 13:15) ANAPHYLAXIS, itching naproxen (NAPROXEN) Allergy (Severe, Verified 11/27/24 13:15) ANAPHYLAXIS NSAIDS (Non-Steroidal Anti-Inflamma (NSAIDS (NON-STEROIDAL ANTI-INFLAMMA) Allergy (Severe, Verified 11/27/24 13:15) ANAPHYLAXIS (STATES CAN TAKE IBUPROFEN) doxycycline (DOXYCYCLINE) Allergy (Unknown, Verified 11/27/24 13:15) RASH ranitidine (From ZANTAC) Allergy (Unknown, Verified 11/27/24 13:15) UNKNOWN sertraline (From ZOLOFT) Allergy (Unknown, Verified 11/27/24 13:15) FELT LIKE I WAS ON FIRE Sulfa (Sulfonamide Antibiotics) (SULFA (SULFONAMIDE ANTIBIOTICS)) Allergy (Unknown, Verified 11/27/24 13:15) UNKNOWN Medication List - Last Reconciled 11/27/24 by Cole Gee MD acetaminophen ER (Tylenol Arthritis Pain) 650 mg PO .Q6 hours PRN 10 days blood pressure monitor (Blood Pressure Kit) As directed docusate sodium 100 mg PO BEDTIME fluticasone propionate 50 mcg/actuation (Flonase Allergy Relief) 1 spray intranasal DAILY 14 days lactobacillus combination no.4 (Probiotic) 3,000 mmu cells PO DAILY loratadine (Claritin) 10 mg PO DAILY multivitamin 1 tab PO DAILY polyethylene glycol 3350 (Miralax) 17 grams PO DAILY psyllium husk 1.04 grams (2 x 0.52 gram) PO DAILY sennosides (Natural Senna Laxative) 17.2 mg (2 x 8.6 mg) PO BEDTIME trazodone 75 mg (1/2 x 150 mg) PO BEDTIME 90 days Tobacco use date assessed: 11/27/24 Fall risk assessment: No Falls in past year Last assessed Fall Risk: 11/27/24 Dental Screening Dental Screen Date: 11/27/24 Did you have a dental visit in the last 12 months?: No Did you have a dental problem in the last 6 months where you did not have access to dental care?: No Was dental information given to patient?: Patient declined [facility] Medical History Constipation due to outlet obstruction Aphthous stomatitis Plantar fasciitis of left foot Bug bite Right hip pain Hip pain Hamstring tendinitis of left thigh Cholelithiasis Diverticulitis Left flank pain Left leg swelling Claudication Left leg pain Neck pain Blocked ear Neck pain Impacted cerumen of left ear Age-related osteoporosis without current pathological fracture Acute otitis media with effusion of left ear Insomnia History of diverticulitis Osteoarthritis, knee Osteopenia Diverticulitis Small bowel obstruction Hypercholesterolemia Allergic rhinitis Generalized anxiety disorder Pulmonary nodule Insomnia Surgical History History of cataract surgery History of tonsillectomy History of bilateral cataract extraction History of colonoscopy History of tonsillectomy Family History Father Obesity Stroke Mother Afib Son Diabetes Father No problems noted. Mother No problems noted. Son No problems noted. Social History Housing: House Alcohol intake: current Alcohol intake frequency: holidays/special occasions only Alcohol type: wine Comment: holidays 1 drink (1-2 drinks Q4 months) Patient Tobacco Use Status: Former Tobacco user Tobacco use type: Cigarette Years Smoked: 2012 stopped e-Cigarette/Vaping Use: Never Used Second Hand Smoke Exposure: Yes service: No Current occupational status: retired Cognitive needs: No Hearing needs: No Vision needs: Yes (reading glasses) Questionnaire PHQ-9 Over the last 2 weeks, how often have you been bothered by any of the following problems? 1. Little interest or pleasure in doing things: several days 2. Feeling down, depressed, or hopeless: not at all 3. Trouble falling or staying asleep, or sleeping too much: nearly every day 4. Feeling tired or having little energy: not at all 5. Poor appetite or overeating: not at all 6. Feeling bad about yourself - or that you are a failure or have let yourself or your family down: several days 7. Trouble concentrating on things, such as reading the newspaper or watching television: not at all 8. Moving or speaking so slowly that other people could have noticed. Or the opposite - being so fidgety or restless that you have been moving around a lot more than usual: several days 9. Thoughts that you would be better off or of hurting yourself in some way: not at all Total score: 6 Depression Screening Interpretation: Positive Depression Screening Done: Yes Source: Developed by Drs. Boubacar Valdez, Connie Ma, Anthony Coleman and colleagues, with an educational swathi from [employer]. Thrive Questionnaire Date Thrive assessed: 05/30/24 I am a: Patient What is your living situation today?: I have a steady place to live Within the past 12 months, did the food you bought not last and you didn't have the money to get more?: Never true Within the past 12 months, did you worry whether your food would run out before you got money to buy more?: Never true Do you have trouble paying for medicines?: No Do you have trouble getting transportation to medical appointments?: No Do you have trouble paying your heating and electricity bill?: No Do you have trouble taking care of your child, family member or friend?: No Do you have trouble with day-to-day activities such as bathing, preparing meals, shopping, managing finances, etc.?: No Are you currently unemployed and looking for a job?: No Are you interested in more education?: No Please select the resources that you would like help with: None Currently or been in a relationship where the following occur: I choose not to answer THRIVE Score: 0 AUDIT C Alcohol Use Questionnaire (AUDIT-C) 1. How often do you have a drink containing alcohol?: Monthly or less 2. How many drinks containing alcohol do you have on a typical day when you are drinking?: 1 or 2 3. How often do you have six or more drinks on one occasion?: Never Total Score: 1 EUSEBIA-7 AMB Questionnaire EUSEBIA-7 Date EUSEBIA - 7 assessed: 05/30/24 Feeling nervous, anxious, or on edge: 1 = Several days Not being able to stop or control worryin = Not at all Worrying too much about different things: 1 = Several days Trouble relaxin = Not at all Being so restless that it is hard to sit still: 0 = Not at all Becoming easily annoyed or irritable: 0 = Not at all Feeling afraid as if something awful might happen: 0 = Not at all Total EUSEBIA-7 score (0-4 normal; 5-9 mild; 10-14 moderate; 15-21 severe): 2 Source: Developed by Drs. Boubacar Valdez, Connie Ma, Anthony Coleman and colleagues, with an educational swathi from [employer]. Physical exam (Primary Care) Vital Signs: Last Vital Signs Temp 97.3 F 11/27/24 13:15 Pulse 81 11/27/24 13:15 Resp 18 11/27/24 13:15 BP 136/78 11/27/24 13:15 Pulse Ox 96 11/27/24 13:15 Oxygen Delivery Method Room Air 11/27/24 13:15 BMI result Body Mass Index 20.3 Tobacco/Smoking Status: Tobacco use Status Tobacco use date assessed 11/27/24 11/27/24 13:16 Patient Tobacco Use Status Former Tobacco user 11/27/24 13:16 Tobacco use type Cigarette 11/27/24 13:16 e-Cigarette/Vaping Use Never Used 11/27/24 13:16 PHQ-9: PHQ-9 Score PHQ-9: Total score 6 11/27/24 13:16 Depression Screening Interpretation: Positive Thrive Assessment: Date of Thrive Assessment Date Thrive assessed 05/30/24 11/27/24 13:16 Currently or been in a relationship where the following occur: I choose not to answer Const Other: impacted cerumen bilateral R pinna 1 cm with scaly rash General: alert; No acute distress Eyes Conjunctivae: conjunctivae normal Resp Auscultation: clear to auscultation bilaterally Cardio Rate: regular rate Rhythm: regular rhythm GI Inspection: Yes normal to inspection Extrem General: Yes normal to inspection and No edema Office Procedures Cerumen Removal From which ear canal was the cerumen removed: bilateral Removal: otoscope w/curette and cerumen loop/spoon Notes: patient tolerated procedure well, no complications and ear canal clear [id number] Wax Removal by Spoon/Curette Coding Level of Care Code Est Pt Level 4 (72515) Complex EM visit Add On G2211 Diagnoses Anemia D64.9 Hypercholesterolemia E78.00 Leukopenia D72.819 Pressure injury of right ischium, stage 2 L89.312 Pressure injury stage: stage 2 Laterality: right 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 Be it pork or beef they have a lot of cholesterol LDL goal of less than 130 and triglyceride of less than 150 patient do need blood work (3) Leukopenia: Code(s): D72.819 - Decreased white blood cell count, unspecified Category: Medical Plan: Patient needs a repeat blood work (4) Pressure sore of ischial area: Comment: R 05/2023 Code(s): L89.309 - Pressure ulcer of unspecified buttock, unspecified stage Category: Medical Qualifiers: Pressure injury stage: stage 2 Laterality: right Qualified Code(s): L89.312 - Pressure ulcer of right buttock, stage 2 Plan: Advised to keep active move (5) COPD (chronic obstructive pulmonary disease): Code(s): J44.9 - Chronic obstructive pulmonary disease, unspecified Category: Medical Qualifiers: COPD type: emphysema Emphysema type: panlobular Qualified Code(s): J43.1 - Panlobular emphysema Plan: Stable (6) Generalized anxiety disorder: Code(s): F41.1 - Generalized anxiety disorder Category: Medical Plan: Discussed about counseling and therapy, on trazodone (7) Insomnia: Code(s): G47.00 - Insomnia, unspecified Category: Medical Plan: Patient on trazodone (8) Osteopenia: Comment: February 2019 Code(s): M85.80 - Other specified disorders of bone density and structure, unspecified site Category: Medical (9) Cough: Code(s): R05.9 - Cough, unspecified Category: Medical Qualifiers: Cough type: acute Qualified Code(s): R05.1 - Acute cough (10) Eczema: Comment: R pinna Code(s): L30.9 - Dermatitis, unspecified Category: Medical (11) Impacted cerumen of both ears: Code(s): H61.23 - Impacted cerumen, bilateral Category: Medical Plan: scoop used , no irrigation TM intact Plan History of Present Illness The patient is an 84-year-old female presenting for a follow-up visit. The patient has a history of Chronic Obstructive Pulmonary Disease (COPD), hypercholesterolemia, peripheral vascular disease, generalized anxiety disorder, and a splenic artery aneurysm. She has been experiencing pressure sores on the right side since May 2023, which have improved with the use of Aquaphor and [place]. The patient was seen by gastroenterology in June 2024 for constipation issues. Blood work done in May 2024 showed mild anemia, leukopenia, and mild hyponatremia with normal renal function. Her cholesterol levels have increased, with an LDL of 132 mg/dL. The patient reports a history of ear wax buildup causing hearing loss, which was addressed during the visit. She also has a history of osteopenia, with the last bone density test conducted in May 2022. Health Maintenance - Blood work recommended to monitor anemia, leukopenia, and cholesterol levels. - Advised to maintain physical activity to manage cholesterol and overall health. - Discussed dietary modifications to reduce cholesterol intake. - Recommended follow-up for bone density assessment due to osteopenia. Social History - The patient lives with Joanne and reports stress eating, particularly oyster crackers. - She has a history of significant weight loss through [employer], losing 110 pounds. - The patient reports being previously active and enjoys shopping, although currently limited by transportation issues. Review of Systems - Cardiovascular: Denies chest pain or palpitations. - Respiratory: Reports a cough that is intermittent and non-painful. - Gastrointestinal: Reports constipation. - Musculoskeletal: Reports hip pain at night, relieved by stretching. - Neurological: Reports burning sensation in feet at night. - Dermatological: Reports pressure sores on the right side, improved with treatment. - Auditory: Reports hearing loss due to ear wax buildup. Physical Exam Results - Labs: Blood work in May 2024 showed mild anemia, leukopenia, and mild hyponatremia with normal renal function. - Labs: Cholesterol levels increased with LDL at 132 mg/dL. - Imaging: Bone density test in May 2022 indicated osteopenia. Plan The patient will undergo repeat blood work to monitor anemia, leukopenia, and cholesterol levels. Dietary modifications are advised to reduce cholesterol intake, and the patient is encouraged to maintain physical activity to manage cholesterol and overall health. A follow-up for bone density assessment is recommended due to osteopenia. The patient is advised to continue using Aquaphor and [place] for pressure sores and to remain active to prevent further occurrences. For the cough, an [id number] medication, Delsim, is suggested for use as needed. The patient is advised to use prescribed cream for ear issues and to follow up if symptoms persist. Patient was informed and verbally consented to the use of an ambient scribe for clinic note documentation during this visit. Discussion Notes During the visit, I discussed the importance of monitoring blood work to track anemia, leukopenia, and cholesterol levels. We talked about dietary changes to help manage cholesterol and the need for regular physical activity. I rec ommended a follow-up bone density test due to osteopenia and emphasized the use of Aquaphor and [place] for pressure sores. For the cough, I suggested using Delsim as needed and provided a prescription cream for ear issues, advising follow-up if symptoms persist. Patient Instructions - Schedule and complete repeat blood work to monitor anemia, leukopenia, and cholesterol levels. - Follow dietary recommendations to reduce cholesterol intake. - Maintain regular physical activity to support overall health. - Use Aquaphor and [place] for pressure sores as directed. - Use Delsim for cough as needed. - Apply prescribed cream for ear issues twice daily for one week and follow up if symptoms persist. Orders: Orders 2 Ferritin Today E78.00 - Pure hypercholesterolemia, unspecified Reticulocyte Count Today E78.00 - Pure hypercholesterolemia, unspecified Lipid Panel Today E78.00 - Pure hypercholesterolemia, unspecified Vitamin B12 and Folate Today E78.00 - Pure hypercholesterolemia, unspecified Comprehensive Met. Panel Today E78.00 - Pure hypercholesterolemia, unspecified Complete Blood Count Auto Diff Today E78.00 - Pure hypercholesterolemia, unspec ified Free T4 (Free Thyroxine) Today E78.00 - Pure hypercholesterolemia, unspecified Thyroid Stimulating Hormone Today E78.00 - Pure hypercholesterolemia, unspecified IRON PROFILE Today E78.00 - Pure hypercholesterolemia, unspecified Vitamin D 25-OH Total Today E78.00 - Pure hypercholesterolemia, unspecified UA CC w/rflx Micro + Cult Today E78.00 - Pure hypercholesterolemia, unspecified, R30.0 - Dysuria XR DEXA axial skeleton Today M81.0 - Age-related osteoporosis without current pathological fracture, M85.80 - Other specified disorders of bone density and structure, unspecified site XR chest 2V Today R05.1 - Acute cough Medications: New triamcinolone acetonide 0.1% 1 appl topical BID 15 grams 0RF 7 days L85.3 - Xerosis cutis
--- OUTSIDE RECORDS SUMMARY | 2024-11-27 13:44 | XMS_ITS | Patient Health Record ---
Author [facility] Address [address] [place] [address] Care Team Providers Care Photo Equipment Technician Name Role Phone Cole Gee Primary Care Provider Jayne Yin Unavailable [phone] Kolton Gipson Unavailable [phone] Allergies Allergen (clinical drug ingredient) Drug/Non Drug [...] Duration) Notes Start Date End Date Status Vitamin B Complex Ac tive traZODone HCl 75mg A ctive Colace Not-Taking Night Splint AFO - L1930 as directed Active ZyrTEC Active Nystatin Not-Taking Mapap Arthritis Pain Active CeleXA 10 MG 2 tablets Orally Once a day Not-Taking Lactulose 20 GM/30ML 15 ml Orally Once a day; Duration: 30 day(s) Active Symbicort Not-Taking MiraLax Active predniSONE last pill tomorrow Not-Taking Antibiotic 7 days Not-Takin g Claritin Active Temazepam 15 MG 1 capsule at bedtime as needed Orally Once a day Not-Taking Voltaren 1 % as directed Externally Active LORazepam 1 MG 1 tablet Orally Twice a day Not-Taking Immunizations Vaccine Route Administration Date Status Comme nts Influenza Unknown 01/06/2022 Administered Influenza Unknown 02/06/2024 Administered COVID-19 Moderna Vaccine Unknown 02/26/2021 Administered 1st 06/10/2020 2nd 07/08/2020 Social History Tobacco Use: Social History Observation Description Date Details (start date - stop date) Never Smoker NA - NA Tobacco use other than smoking: Question Answer Notes Are you an other tobacco user? No Tobacco Control (Standard) Question Answer Notes Tobacco use: Nonsmoker Additional Findings: Tobacco non-user Current no nsmoker AUDIT-C (Standard) Question Answer Notes Did you have a drink containing alcohol in the p ast year? No Points 0 Interpretation Negative Problems Problem Type SNOMED Code ICD Code Onset Dates Problem Status W/U Status Risk Notes Problem Bilateral atherosclerosis of arteries of lower limbs (disorder) (08900525088787913 ) Unspecified atherosclerosis of [place] arteries of extremities, bilateral legs (I70.203) Active confirmed Problem Acquired hammer toe of right foot (8185633654137183) Other hammer toe(s) (acquired), right foot (M20.41) Active confirmed Problem Acquired hammer toe of left foot (0928794330101540) Other hammer toe(s) (acquired), left foot (M20.42) Active confirmed Problem Bilateral atherosclerosis of arteries of lower limbs (disorder) (87279843772642775 ) Atherosclerosis of [place] artery of both lower extremities, with unspecified presence of clinical manifestation (I70.203) Active confirmed Q7(A), Q8(2B), Q9(1B,2 C) Problem Localized, primary osteoarthritis of the ankle and/or foot (084326539) Arthritis of joint of lesser toe, left (M19.072) Active confirmed Vital Signs Blood pressure diastolic 65 mm Hg 11/14/2024 Height 5 ft 4 in in 11/14/2024 Blood pressure systolic 115 mm Hg 11/14/2024 Weight 116 lbs 11/14/2024 BMI 19.91 kg/m2 11/14/2024 Procedures Procedure Date Ordered Date Performed Result Body Sit e 69856-OXDNFFH NAIL, 6 OR MORE 03/25/2024 N/A 72421-CVIO SKIN LESIONS, OVER 4 03/25/2024 N/A 95827-ZCSPEYX NAIL, 6 OR MORE 08/12/2024 N/A 25502-PHFLVBL NAIL, 6 OR MORE 11/14/2024 N/A Encounters Encounter Location Date Provider Diagnosis [address] [address] 12/18/2023 Kolton Gipson Tinea unguium B35.1 ; Pain in right toe(s) M79.674 ; Unspecified atherosclerosis of [place] arteries of extremities, bilateral legs I70.203 ; Pain in left toe(s) M79.675 ; Other hammer toe(s) (acquired), left foot M20.42 ; Other hammer toe(s) (acquired), right foot M20.41 and Plantar fascial fibromatosis M72.[address] [address] 03/25/2024 Jayne Luu Atherosclerosis of [place] artery of both lower extremities, with unspecified presence of clinical manifestation I70.203 ; Tinea unguium B35.1 ; Pain in right toe(s) M79.674 ; Pain in left toe(s) M79.675 ; Other hammer toe(s) (acquired), left foot M20.42 and Arthritis of joint of lesser toe, left M19.[address] [address] 08/12/2024 Jayne Luu Atherosclerosis of [place] artery of both lower extremities, with unspecified presence of clinical manifestation I70.203 ; Tinea unguium B35.1 ; Pain in right toe(s) M79.674 and Pain in left toe(s) M79.[address] [address] 11/14/2024 Jayne Luu Atherosclerosis of [place] artery of both lower extremities, with unspecified presence of clinical manifestation I70.203 ; Tinea unguium B35.1 ; Pain in right toe(s) M79.674 and Pain in left toe(s) M79.[address] [address] 12/18/2023 Kolton Gipson Assessments Encounter Date Diagnosis (ICD Code) Assessment Notes Treatment Notes Treatment Clinical Notes Section Notes 12/18/2023 Tinea unguium (ICD-10 - B35.1) 12/18/2023 Pain in right toe(s) (ICD-10 - M79.674) 03/25/2024 Tinea unguium (ICD-10 - B35.1) 03/25/2024 Atherosclerosis of [place] artery of both lower extremities, with unspecified presence of clinical manifestation (ICD-10 - I70.203) Q7(A), Q8(2B), Q9(1B,2C) 08/12/2024 Atherosclerosis of [place] artery of both lower extremities, with unspecified presence of clinical manifestation (ICD-10 - I70.203) Q7(A), Q8(2B), Q9(1B,2C) 11/14/2024 Atherosclerosis of [place] artery of both lower extremities, with unspecified presence of clinical manifestation (ICD-10 - I70.203) Q7(A), Q8(2B), Q9(1B,2C) 11/14/2024 Tinea unguium (ICD-10 - B35.1) 03/25/2024 Pain in right toe(s) (ICD-10 - M79.674) 08/12/2024 Tinea unguium (ICD-10 - B35.1) 12/18/2023 Unspecified atherosclerosis of [place] arteries of extremities, bilateral legs (ICD-10 - I70.203) 03/25/2024 Pain in left toe(s) (ICD-10 - M79.675) 12/18/2023 Pain in left toe(s) (ICD-10 - M79.675) 08/12/2024 Pain in right toe(s) (ICD-10 - M79.674) 11/14/2024 Pain in right toe(s) (ICD-10 - M79.674) 11/14/2024 Pain in left toe(s) (ICD-10 - M79.675) 12/18/2023 Other hammer toe(s) (acquired), left foot (ICD-10 - M20.42) 08/12/2024 Pain in left toe(s) (ICD-10 - M79.675) 03/25/2024 Other hammer toe(s) (acquired), left foot (ICD-10 - M20.42) 12/18/2023 Other hammer toe(s) (acquired), right foot (ICD-10 - M20.41) 03/25/2024 Arthritis of joint of lesser toe, left (ICD-10 - M19.072) 12/18/2023 Plantar fascial fibromatosis (ICD-10 - M72.2) Plan Of Treatment Pending Test Test Name Order Date X ray : Foot, left 3V 03/13/2023 51882-EAHOHBA NAIL, 6 OR MORE 03/25/2024 99937-HCRHPIZ NAIL, 6 OR MORE 10/09/2017 27497-RPSJRTB NAIL, 6 OR MORE 04/10/2017 25274-EHVPQTW NAIL, 6 OR MORE 07/10/2017 07818-XMRZEKM NAIL, 6 OR MORE 01/10/2018 85113-WVZTIZT NAIL, 6 OR MORE 08/12/2024 29355-LBBKGPF NAIL, 6 OR MORE 11/14/2024 75237-FMWVPQG NAIL, 6 OR MORE 04/25/2016 24717-UPJNHAQ NAIL, 6 OR MORE 07/25/2016 70298-ZMZBTOU NAIL, 6 OR MORE 10/24/2016 21780-SVETDRB NAIL, 6 OR MORE 01/16/2017 01667-RQJVWSI NAIL, 1-5 11/11/2015 69704-PYGTDVD NAIL, 1-5 01/28/2016 92371-KRRZTHC NAIL, 1-5 08/01/2013 17691-IVJEWTO NAIL, 1-5 04/24/2014 70183-IDBVOFT NAIL, 1-5 08/06/2014 54988-UTABGFU NAIL, 1-5 11/05/2014 03999-OFDAWJU NAIL, 1-5 04/01/2015 54570-ICXHPPM NAIL, 1-5 07/27/2015 41203-Kyavmosk Plate 07/27/2015 81266-Vbxidale Plate 08/06/2014 50473-Alyehtwz Plate 11/05/2014 77736-Ayjnqfda Plate 10/24/2013 41828-Wbpilgnk Plate 04/24/2014 91847-Mnxectfp Plate 01/18/2016 02077-Orwfszyq Plate 01/27/2014 61988- Debride <25 sq cm 01/27/2014 05111- Debride <25 sq cm 10/24/2013 80151- Debride <25 sq cm 08/01/2013 94872- Debride <25 sq cm 01/28/2016 68610-ZNFX SKIN LESIONS, OVER 4 01/01/20 19 37884-CMWM SKIN LESIONS, OVER 4 04/01/20 19 58931-XDKX SKIN LESIONS, OVER 4 07/01/19 20 16768-WGON SKIN LESIONS, OVER 4 10/07/19 20 47712-SUQY SKIN LESIONS, OVER 4 01/27/20 20 12988-IWAA SKIN LESIONS, OVER 4 06/03/19 21 01171-PRXN SKIN LESIONS, OVER 4 09/22/19 21 62913-TZTB SKIN LESIONS, OVER 4 01/05/20 21 55495-HFIF SKIN LESIONS, OVER 4 05/10/19 22 14626-VTDP SKIN LESIONS, OVER 4 08/10/19 22 52401-HJTD SKIN LESIONS, OVER 4 10/10/19 18 79834-NZEY SKIN LESIONS, OVER 4 07/11/19 18 49413-UMLA SKIN LESIONS, OVER 4 01/11/20 18 14835-KIPK SKIN LESIONS, OVER 4 03/25/20 24 35981-PPTK SKIN LESIONS, OVER 4 07/27/19 16 82033-DPBW SKIN LESIONS, OVER 4 04/01/20 15 55369-RXAX SKIN LESIONS, OVER 4 11/11/19 16 43954-CYMH SKIN LESIONS, OVER 4 01/28/20 16 70167-YBVY SKIN LESIONS, OVER 4 04/10/20 17 41358-LLJD SKIN LESIONS, OVER 4 01/17/20 17 05092-KESA SKIN LESIONS, OVER 4 07/26/19 17 42265-XBOP SKIN LESIONS, OVER 4 10/25/19 17 12564-NYPA SKIN LESIONS, OVER 4 04/25/20 16 60656-Kvai. Subungual Hematoma 76749-IHUR NAIL(S) 01/28/2016 28123-SIKO NAIL(S) 11/11/2015 06740-XIWN NAIL(S) 04/01/2015 97045-ZYNO NAIL(S) 07/27/2015 Next Appt Details Provider Name:Bhavin Garber Iman , 02/18/2025 02:30:00 PM, [address] [place] [address], [place], [address], Insurance Providers Payer Name Payer Address Payer Phone Subscriber Number Group Number Insured Name Patient Relationship to Insured Coverage Start Date Coverage End Date Medicare National [employer] [address] [place] [address] [id number] Vazquez Siena Self - patient is the insured [employer] [address] [place] [address] [id number] Siena Vazquez Self - patient is the insured Medical (General) History Medical History History ICD Code asthma Measles Mumps Chicken pox Surgical History Surgery Date(Month/Year) cataract both eyes 10/06/2014 10/20/2014 Hospitalization History Reason Date(Month/Year) [facility] [place]-Diverticulitis 4 hrs 05/20/22 [facility] [place] for allergic reaction to Zoloft. 10/01/17 [facility] [place] for non stoping blood on toe. 01/06 06/23 Patient admitted to [facility] er x 3wks; diverticulitis 01/2015 [facility] [place] for dehydration - then snf 04/2018
--- OUTSIDE RECORDS SUMMARY | 2024-11-27 13:44 | XMS_ITS | Clinical Summary ---
Author Organization [employer] Address [address] [facility] [address] [place] [address] Care Team Providers Care Sole Edge Inker Machine Name Role Phone Unavailable Primary Care Provider Unavailabl e Immunizations Immunization Administration Dates Next Due Influenza High-dose Quadriva lent Preservative Free 01/31/2022,01/21/2020 Influenza Quadrivalent Adjuvanted 01/27/2023 Influenza, High Dose Seasona l, Preservative Free 02/05/2018,01/05/2017,2016 Influenza, Injectable, MDCK, preservative free 01/29/2015 Influenza, seasonal, injecta ble, preservative free 01/24/2024 Influenza, trivalent, adjuvanted 02/01/2019 Pfizer Covid-19 Vaccine 12+ 07/30/2024, 4,07/20/2023 Pneumococcal Conjugate PCV 13 01/31/2019, 019 Pneumococcal [...] Date Last Done Comments Depression Screening 1942 Lipid Panel 1942 SDOH Screening 1942 Alcohol/Substance Use Screening 1954 Tobacco Screening 1954 Influenza Vaccine (#1) 2025 4, 01/24/2024, 01/27/2023, Additional history exists DTaP/Tdap/Td Vaccines (2 - Td or Tdap) 06/25/2025 06/25/2015 Zoster Vaccines Completed 04/16/2019, 01/16/2019 Pneumococcal Vaccine: 50+ Years Completed 02/10/2020, 01/31/2019, 12/31/2018, Additional history exists RSV Patients and Patients Aged 60 years or older Completed 03/04/2023 COVID-19 Vaccine Completed 07/30/2024, , 07/20/2023, Additional history exists HIB Vaccines Aged Out [...] patient's age to complete this topic Meningococcal B Vaccine Aged Out No l onger eligible based on patient's age to complete this topic Meningococcal Vaccine Aged Out No papi tracey eligible based on patient's age to complete this topic RSV under 20 months Aged Out No longe r eligible based on patient's age to complete this topic Rotavirus Vaccines Aged Out No longer eligible based on patient's age to complete this topic Insurance [place] [address] [place] [id number] [facility] MEDEX C[employer]
== END 2024-11-27 14:08 | disposition home or self-care (01) ==
LOC: HO.HMCH 13:17
PROVIDERS: PCP Internal Medicine; Visit Provider Internal Medicine
DX: D64.9 Anemia, unspecified (principal); L89.312 Pressure ulcer of right buttock, stage 2; J43.1 Panlobular emphysema; E78.00 Pure hypercholesterolemia, unspecified; D72.819 Decreased white blood cell count, unspecified; F41.1 Generalized anxiety disorder; G47.00 Insomnia, unspecified; M85.80 Other specified disorders of bone density and structure, unspecified site; R05.1 Acute cough; L30.9 Dermatitis, unspecified; H61.23 Impacted cerumen, bilateral

== ENCOUNTER → 2024-11-27 13:16 | Outpatient (BNVA) | payer MEDICARE, SELFPAY | PROVIDERS: PCP Internal Medicine; Visit Provider Internal Medicine | DX: D64.9 Anemia, unspecified (principal); E78.00 Pure hypercholesterolemia, unspecified; D72.819 Decreased white blood cell count, unspecified; L89.312 Pressure ulcer of right buttock, stage 2; J43.1 Panlobular emphysema; F41.1 Generalized anxiety disorder; G47.00 Insomnia, unspecified; R05.1 Acute cough; M85.80 Other specified disorders of bone density and structure, unspecified site; H61.23 Impacted cerumen, bilateral; L30.9 Dermatitis, unspecified | CPT/HCPCS: 69210; 99212 ==

== ENCOUNTER 2024-12-11 07:05 | Outpatient (REF) | payer MEDICARE, SELFPAY ==
--- NOTE | ~2024-12-11 | XR_ITS ---
EXAMINATION: XR CHEST 2 VIEWS HISTORY: R05.1 - Acute cough COMPARISON: Comparison is made with the prior examination dated 09/25/2023. FINDINGS: PA and lateral views of the chest are submitted. The lungs remain hyperinflated, consistent with COPD. The lungs are clear. There is no pleural effusion, pneumothorax, or pulmonary vascular congestion. The heart is normal in size. There is degenerative disc disease of the spine. XR/XR chest 2V IMPRESSION: COPD. No acute cardiopulmonary abnormality. Electronically signed by: Boubacar Tee MD 12/11/2024 08:08 AM EDT
--- OUTSIDE RECORDS SUMMARY | 2024-12-11 07:08 | XMS_ITS | Clinical Summary ---
Author Organization [employer] Address [address] [facility] [address] [place] [address] Care Team Providers Care Dye Padder Operator Name Role Phone Unavailable Primary Care Provider [...] age to complete this topic Insurance MEDIC[place] [address] [place] [id number] [facility] MEDEX CARE
[2024-12-11 07:26] LABS: MANUAL DIFF FLAG NO
[2024-12-11 08:23] LABS: Hematocrit 37.2 % (37.0-47.0); Hemoglobin 12.6 g/dl (12.0-16.0); Imm Gran Abs Auto 0.01 X10*3/uL (0.00-0.03); Imm Gran Pct Auto 0.4 % (0.0-0.4); Lymphocytes Absolute Auto 0.9 X10*3/uL (1.2-4.9); Mean Corpuscular HGB Conc 33.9 g/dl (31.0-35.0); Mean Corpuscular Hemoglobin 31.7 pg (27.0-33.0); Mean Corpuscular Volume 93.7 fL (80.0-98.0); NRBC Abs Auto 0.000 X10*3/uL (0.0-0.012); NRBC Pct Auto 0.0 /100WBC (0.0-0.2); Platelet Count 213 X10*3/uL (160-400); Red Blood Count 3.97 X10*6/uL (4.20-5.50); Reticulocytes Absolute 0.049 X10*6/uL (0.026-0.095); White Blood Count 2.7 X10*3/uL (4.8-10.8)
[2024-12-11 08:33] LABS: Appearance Urine Clear; Glucose Urine UA Negative (Negative); PH 6.5 (5.0-9.0); Specific Gravity - Urine 1.015 (1.005-1.025); UMIC TRIGGER UACC YES
[2024-12-11 08:47] LABS: UACC Culture Trigger YES
[2024-12-11 09:01] LABS: Alanine Aminotransferase 11 U/L (0-31); Albumin Level 4.5 g/dL (3.5-5.0); Alkaline Phosphatase 78 U/L (39-117); Anion Gap 12 (12-20); Aspartate Amino Transferase 28 U/L (5-31); Blood Urea Nitrogen 13 mg/dL (9-16); Calcium 9.4 mg/dL (8.4-10.2); Carbon Dioxide 29 mmol/L (22-29); Chloride 99 mmol/L (96-108); Cholesterol 231 mg/dL (<200); Estimated Glomerular Filt Rate > 60; HDL Cholesterol 78 mg/dL (>40); Iron 100 mcg/dL (30-160); Percent Iron Saturation 34 % (15-50); Potassium 4.6 mmol/L (3.3-5.1); Sodium 135 mmol/L (135-145); Total Iron Binding Capacity 297 mcg/dL (228-428); Total Protein 6.9 g/dL (6.5-8.0); Triglycerides 83 mg/dL (<150); Unsaturated Iron Binding 197 ug/dL
[2024-12-11 09:16] LABS: Ferritin 234 ng/mL (10-250); Free T4 (Free Thyroxine) 1.11 ng/dL (0.71-1.85); Thyroid Stimulating Hormone 0.90 uIU/mL (0.32-4.0)
[2024-12-11 09:24] LABS: Folate 14.6 ng/mL (> or = 4.0); Vitamin B12 606 pg/mL (200-900)
== END 2024-12-11 07:06 | disposition home or self-care (01) ==
LOC: HO.XRAY 07:05
PROVIDERS: PCP Internal Medicine; Visit Provider Internal Medicine
DX: R05.1 Acute cough (principal); E78.00 Pure hypercholesterolemia, unspecified; R30.0 Dysuria
CPT/HCPCS: 36415; 71046; 80053; 80061; 81001; 82306; 82607; 82728; 82746; 83540; 84439; 84443; 85025; 85045; 87086

== ENCOUNTER → 2024-12-11 07:37 | Outpatient (BNV) | payer MEDICARE, SELFPAY | PROVIDERS: PCP Internal Medicine; Visit Provider Radiology Diagnostic Radiology | DX: J44.9 Chronic obstructive pulmonary disease, unspecified (principal) | CPT/HCPCS: 71046 ==

== ENCOUNTER 2025-01-23 11:04 | Outpatient (REF) | payer MEDICARE, SELFPAY ==
--- NOTE | ~2025-01-23 | MM_ITS ---
EXAMINATION: DXA BONE DENSITY AXIAL HISTORY: M81.0 - Age-related osteoporosis without current pathological fracture TECHNIQUE: [employer] Dual energy absorptiometry (DEXA) of the lumbar spine, total left hip, and femoral neck was performed. COMPARISON: Comparison is made with the prior examination dated 05/27/2022. FINDINGS: The bone mineral density of the lumbar spine is 0.943 g/cm2, corresponding to a T-score of -2.0, and a Z-score of 0.2. This is indicative of osteopenia. This represents a BMD change of -15.0% compared to the prior exam. This is statistically significant. The bone mineral density of the left total hip is 0.668 g/cm2, corresponding to a T-score of -2.7, and a Z-score of -0.3. This is indicative of osteoporosis. This represents a BMD change of -7.6% compared to the prior exam. This is statistically significant. The bone mineral density of the left femoral neck is 0.682 g/cm2, corresponding to a T-score of -2.6, and a Z-score of -0.1. This is indicative of osteoporosis. This represents a BMD change of -2.4% compared to the prior exam. FRACTURE RISK: The FRAX index suggests a ten year probability of major osteoporotic fracture of 18.0%, and of hip fracture 6.9%. MM/XR DEXA axial skeleton IMPRESSION: Based on bone mineral density, and according to World Health Organization (WHO) criteria, the diagnosis is consistent with osteoporosis. Statistically, 68% of repeat scans fall within 1 SD (+/- 0.010 g/cm2 for AP spine L1-L4) and 1 SD (+/- 0.012 g/cm2 for femur total) FRAX is a trademark of the [employer]'s [employer] Met[employer] Bone Disease, a World Health Organization (WHO) Collaborating Center. Electronically signed by: Boubacar Tee MD 01/23/2025 12:03 PM EDT
--- OUTSIDE RECORDS SUMMARY | 2025-01-23 13:13 | XMS_ITS | Clinical Summary ---
Author Organization [employer] Address [address] [facility] [address] [place] [address] Care Team Providers Care Transportation Broker Name Role Phone Unavailable Primary Care Provider [...] age to complete this topic Insurance [place] [address] [place] [id number] [facility] MEDEX CARE
== END 2025-01-23 11:05 | disposition home or self-care (01) ==
LOC: HO.MAMMO 11:04
PROVIDERS: PCP Internal Medicine; Visit Provider Internal Medicine
DX: M81.0 Age-related osteoporosis without current pathological fracture (principal); M85.80 Other specified disorders of bone density and structure, unspecified site
CPT/HCPCS: 77080

== ENCOUNTER → 2025-01-23 11:30 | Outpatient (BNV) | payer MEDICARE, SELFPAY | PROVIDERS: PCP Internal Medicine; Visit Provider Radiology Diagnostic Radiology | DX: E28.39 Other primary ovarian failure (principal) | CPT/HCPCS: 77080 ==

== ENCOUNTER 2025-03-27 10:05 | Outpatient (AMB) | payer MEDICARE, SELFPAY ==
[2025-03-27 10:20] VITALS: BP 134/76; PULSE 71; O2SAT 97; BMI 20.1
--- NOTE | 2025-03-27 10:20 | MHC.PC.OV ---
Vital Signs 03/27/25 10:20 Height 5 ft 5 in Weight 121 lb BMI 20.1 BP 134/76 Blood Pressure Location Lt brachial Position Sitting Pulse 71 Pulse Source Pulse Oximeter Pulse Oximetry (%) 97 Oxygen Delivery Method Room Air Intake Visit Reasons: hypercholesterol , Insomnia Allergies aspirin (ASPIRIN) Allergy (Severe, Verified 03/27/25 10:21) ANAPHYLAXIS codeine (CODEINE) Allergy (Severe, Verified 03/27/25 10:21) ANAPHYLAXIS, itching naproxen (NAPROXEN) Allergy (Severe, Verified 03/27/25 10:21) ANAPHYLAXIS NSAIDS (Non-Steroidal Anti-Inflamma (NSAIDS (NON-STEROIDAL ANTI-INFLAMMA) Allergy (Severe, Verified 03/27/25 10:21) ANAPHYLAXIS (STATES CAN TAKE IBUPROFEN) doxycycline (DOXYCYCLINE) Allergy (Unknown, Verified 03/27/25 10:21) RASH ranitidine (From ZANTAC) Allergy (Unknown, Verified 03/27/25 10:21) UNKNOWN sertraline (From ZOLOFT) Allergy (Unknown, Verified 03/27/25 10:21) FELT LIKE I WAS ON FIRE Sulfa (Sulfonamide Antibiotics) (SULFA (SULFONAMIDE ANTIBIOTICS)) Allergy (Unknown, Verified 03/27/25 10:21) UNKNOWN Tobacco use date assessed: 05/30/24 Fall risk assessment: No Falls in past year Last assessed Fall Risk: 03/27/25 Dental Screening Dental Screen Date: 05/30/24 HPI HPI Comments History of Present Illness Details History of Present Illness The patient is an 85 year old individual presenting for a follow-up visit, last seen in November 2024. The patient has a past medical history of COPD, hypercholesterolemia, insomnia, and generalized anxiety disorder. A bone density scan in January 2025 revealed osteoporosis with a 15% decrease in the spine. The bones were noted to be weak. Regarding COPD, a chest x-ray in December showed findings of COPD without acute abnormalities. The patient reports having inhalers at home but does not take them and notes an occasional, non-bothersome cough. Lab work from December 2024 showed an LDL cholesterol of 137 mg/dL. The patient also has a history of mild, chronic leukopenia. 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 The patient experienced a significant bleeding episode after a prior biopsy of the lesion. For foot problems, the patient has a history of hammertoes, which has led to a sore on top of the foot from rubbing against shoes. The patient has seen a woodwork salvage inspector, Dr. Valerio, once for this issue. The patient has a remote history of diverticulitis. The patient takes trazodone 75 mg for sleep but still experiences awakening at 1:00 AM. Health maintenance is up-to-date, including a mammogram, and RSV, tetanus, shingles, pneumonia, influenza, and COVID-19 vaccinations. The last colonoscopy was in 2013. Health Maintenance Reviewed immunizations and confirmed they are up to date. Addressed outdated dietary restrictions for diverticulitis, confirming that items like potato skins and corn are permissible. Encouraged increased fiber and fluid intake to promote regular bowel movements. Social History - Functional Status: The patient's activity is limited by foot problems but is ambulatory at home. - Nutritional Intake: The patient's diet includes foods such as hamburgers and chicken, but not fried. - Hydration: The patient reports difficulty with water intake, drinking about 3-4 glasses per day, despite recommendations to drink more. - Substance Use: The patient is not on any blood thinners and takes Tylenol for pain, avoiding NSAIDs like Aleve. Results - Labs (December 2024): - CBC: Mild leukopenia, which is chronic. - CMP: Electrolytes and renal function are normal. - Glucose: Normal. - Liver Function Tests: Normal. - Lipid Panel: LDL cholesterol is mildly elevated at 137 mg/dL. - Vitamin Levels: Vitamin D is high at 100. - Other labs: B12, folic acid, and thyroid function are normal. - Imaging: - Bone Density Scan (January 2025): Showed osteoporosis, with a 15% decrease in the spine. - Chest X-ray (December 2024): Showed COPD with no acute cardiopulmonary abnormality. [facility] Medical History (Updated 03/27/25 @ 10:46 by Cole Gee MD) Osteopenia Constipation due to outlet obstruction Aphthous stomatitis Plantar fasciitis of left foot Bug bite Right hip pain Hip pain Hamstring tendinitis of left thigh Cholelithiasis Diverticulitis Left flank pain Left leg swelling Claudication Left leg pain Neck pain Blocked ear Neck pain Impacted cerumen of left ear Age-related osteoporosis without current pathological fracture Acute otitis media with effusion of left ear Insomnia History of diverticulitis Osteoarthritis, knee Diverticulitis Small bowel obstruction Hypercholesterolemia Allergic rhinitis Generalized anxiety disorder Pulmonary nodule Insomnia Surgical History History of cataract surgery History of tonsillectomy History of bilateral cataract extraction History of colonoscopy History of tonsillectomy Family History Father Obesity Stroke Mother Afib Son Diabetes Father No problems noted. Mother No problems noted. Son No problems noted. Social History Housing: House Alcohol intake: current Alcohol intake frequency: holidays/special occasions only Alcohol type: wine Comment: holidays 1 drink (1-2 drinks Q4 months) Patient Tobacco Use Status: Former Tobacco user Tobacco use type: Cigarette Years Smoked: 2012 stopped e-Cigarette/Vaping Use: Never Used Second Hand Smoke Exposure: Yes service: No Current occupational status: retired Cognitive needs: No Hearing needs: No Vision needs: Yes (reading glasses) Questionnaire Thrive Questionnaire Date Thrive assessed: 05/30/24 I am a: Patient What is your living situation today?: I have a steady place to live Within the past 12 months, did the food you bought not last and you didn't have the money to get more?: Never true Within the past 12 months, did you worry whether your food would run out before you got money to buy more?: Never true Do you have trouble paying for medicines?: No Do you have trouble getting transportation to medical appointments?: No Do you have trouble paying your heating and electricity bill?: No Do you have trouble taking care of your child, family member or friend?: No Do you have trouble with day-to-day activities such as bathing, preparing meals, shopping, managing finances, etc.?: No Are you currently unemployed and looking for a job?: No Are you interested in more education?: No Please select the resources that you would like help with: None Currently or been in a relationship where the following occur: I choose not to answer THRIVE Score: 0 EUSEBIA-7 AMB Questionnaire EUSEBIA-7 Date EUSEBIA - 7 assessed: 05/30/24 Source: Developed by Drs. Boubacar Valdez, Connie Ma, Anthony Coleman and colleagues, with an educational swathi from [employer]. Review of Systems Narrative Review of Systems - General: Reports feeling well overall. - Respiratory: Reports nasal congestion and an occasional, non-bothersome cough. - Musculoskeletal: Reports pain on the top of the foot due to hammertoes rubbing on shoes. - Gastrointestinal: Denies nausea and vomiting. - Neurological: Denies feeling unsteady while walking. - Integumentary: Reports a diagnosed basal cell carcinoma on the ear and a sore on the foot. - Psychiatric: Reports poor sleep with community organization aide awakenings at 1 AM despite taking trazodone. Physical exam (Primary Care) Vital Signs: Last Vital Signs Pulse 71 03/27/25 10:20 BP 134/76 03/27/25 10:20 Pulse Ox 97 03/27/25 10:20 Oxygen Delivery Method Room Air 03/27/25 10:20 BMI result Body Mass Index 20.1 Tobacco/Smoking Status: Tobacco use Status Tobacco use date assessed 05/30/24 03/27/25 10:23 Patient Tobacco Use Status Former Tobacco user 03/27/25 10:23 Tobacco use type Cigarette 03/27/25 10:23 e-Cigarette/Vaping Use Never Used 03/27/25 10:23 Thrive Assessment: Date of Thrive Assessment Date Thrive assessed 05/30/24 03/27/25 10:23 Currently or been in a relationship where the following occur: I choose not to answer Narrative Physical Exam - General: Patient appears well. - Respiratory: Lungs are clear to auscultation bilaterally. - Extremities: Examination of the foot reveals bilateral hammertoes with a sore on the dorsal aspect of one foot, consistent with friction injury. 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 Be it pork or beef they have a lot of cholesterol LDL goal of less than 130 and triglyceride of less than 150 (2) Osteoporosis: Code(s): M81.0 - Age-related osteoporosis without current pathological fracture Category: Medical Plan: Discussed about calcium and vitamin-D and medications to help with strengthening in the bone (3) COPD (chronic obstructive pulmonary disease): Code(s): J44.9 - Chronic obstructive pulmonary disease, unspecified Category: Medical Qualifiers: COPD type: emphysema Emphysema type: panlobular Qualified Code(s): J43.1 - Panlobular emphysema Plan: Stable and not on any inhaler (4) Generalized anxiety disorder: Code(s): F41.1 - Generalized anxiety disorder Category: Medical Plan: Continue with trazodone (5) Basal cell carcinoma (BCC): Comment: R ear Code(s): C44.91 - Basal cell carcinoma of skin, unspecified Category: Medical Plan Plan Patient was informed and verbally consented to the use of an ambient scribe for clinic note documentation during this visit. 1. Osteoporosis The recent bone density scan confirmed osteoporosis, indicating weak bones. Advised on the importance of fall prevention. Recommended supplementation with calcium and vitamin D. The patient was informed that the current high vitamin D level of 100 likely indicates they are already taking a supplement. Prescription medications for bone strengthening were offered, but the patient deferred at this time. 2. Hypercholesterolemia The patient's LDL cholesterol remains mildly elevated at 137 mg/dL, with a goal of less than 130 mg/dL. Dietary counseling was provided, advising to limit fried foods, sausage, pastries, and desserts. The patient was reassured that the high HDL is protective. 3. Hammertoe, Acquired The patient is experiencing pain and a sore on the foot from hammertoes rubbing on footwear. The recommended management is to ensure shoes have adequate space to prevent rubbing, as surgery is not an option due to the patient's age. The patient has new, wider shoes ordered. The patient will continue to follow up with a woodwork salvage inspector. 4. Basal Cell Carcinoma Of Skin The patient has a diagnosis of basal cell carcinoma on the ear and is scheduled for a procedure with dermatology on May 22. Advised to avoid blood-thinning medications such as ibuprofen and Aleve prior to the procedure. Confirmed that continuing Tylenol is acceptable. 5. Chronic Obstructive Pulmonary Disease The patient is stable and not currently on any inhaler, with only an occasional cough. Will continue to monitor. Discussion Notes I discussed the results of the recent bone density scan, explaining that it shows osteoporosis, meaning the bones are weak and at a higher risk of fracture from a fall. We discussed the importance of fall prevention. I recommended daily calcium and vitamin D intake, noting the patient's high vitamin D level suggests they may already be taking it. I offered a prescription medication to strengthen the bones, but the patient wished to defer this for now. I reviewed the recent lab work, explaining the LDL cholesterol is slightly elevated at 137. We discussed dietary modifications, such as limiting fried foods and processed meats, to help lower cholesterol. In regards to the foot pain, I explained that it is caused by the hammertoes rubbing against footwear and that the best solution is to create more space by wearing wider shoes, as surgery is not a suitable option. We talked about the upcoming dermatology procedure for the basal cell carcinoma on the patient's ear, scheduled for May 22. I advised the patient to avoid taking medications like ibuprofen or Aleve that can thin the blood, and confirmed that Tylenol is safe to use. I also clarified that previous dietary restrictions for diverticulitis, such as avoiding potato skins, corn, and seeds, are no longer considered necessary. I continued to encourage adequate fiber and water intake to prevent constipation. Patient Instructions - Take a calcium and vitamin D supplement every day to help keep your bones strong. - To help lower your cholesterol, try to limit your intake of fried foods, sausage, desserts, and fast foods. - Your foot pain is from your toes rubbing on your shoes. - You should wear shoes that are wider in the toe area to give them more space. - Before your skin procedure on May 22, do not take medications like Aleve or Advil (ibuprofen). - You can take Tylenol if you need it. - It is safe for you to eat foods like potato skins, corn, and popcorn. - Make sure to eat enough fiber and drink plenty of water (about 6-8 glasses a day) to avoid becoming constipated. - Continue to take trazodone for sleep as prescribed. - Continue to be careful to prevent falls.
--- OUTSIDE RECORDS SUMMARY | 2025-03-27 14:49 | XMS_ITS | Patient Health Record ---
[facility] Address [address] [place] [address] Care Team Providers Care Proof Load Mechanic Name Role Phone Cole Gee Primary Care Provider Bhavin Berger Unavailable [phone] Jayne Luu Unavailable [phone] Allergies Allergen (clinical drug ingredient) Drug/Non Drug [...] Duration) Notes Start Date End Date Status Colace Not-Taking Vitamin B Complex Ac tive ZyrTEC Active Night Splint AFO - L1930 as directed Active Antibiotic 7 days Not-Takin g predniSONE last pill tomorrow Not-Taking Voltaren 1 % as directed Externally Active LORazepam 1 MG 1 tablet Orally Twice a day Not-Taking Claritin Active Temazepam 15 MG 1 capsule at bedtime as needed Orally Once a day Not-Taking Lactulose 20 GM/30ML 15 ml Orally Once a day; Duration: 30 day(s) Active Symbicort Not-Taking Mapap Arthritis Pain Active CeleXA 10 MG 2 tablets Orally Once a day Not-Taking MiraLax Active Nystatin Not-Taking traZODone HCl 75mg A ctive Immunizations Vaccine Route Administration Date Status Comme [...] atherosclerosis of arteries of lower limbs (disorder) ([id number] ) Atherosclerosis of [place] artery of both lower extremities, with unspecified presence of clinical manifestation (I70.203) Active confirmed Q7(A), Q8(2B), Q9(1B,2 C) Vital Signs Blood pressure diastolic 65 mm Hg 02/18/2025 Height 5 ft 4 in in 02/18/2025 Blood pressure systolic 115 mm Hg 02/18/2025 Weight 116 lbs 02/18/2025 BMI 19.91 kg/m2 02/18/2025 Procedures Procedure Date Ordered Date Performed Result Body Sit e 90073-HMFYPDS NAIL, 6 OR MORE 08/12/2024 N/A 47001-ERCSNPF NAIL, 6 OR MORE 11/14/2024 N/A 54693-JDZLWIA NAIL, 6 OR MORE 02/18/2025 N/A 15982-NPBV SKIN LESIONS, OVER 4 02/18/2025 N/A Encounters Encounter Location Date Provider Diagnosis [facility] [address] [address] 08/12/2024 Jayne Luu Atherosclerosis of [place] artery of both lower extremities, with unspecified presence of clinical manifestation I70.203 ; Tinea unguium B35.1 ; Pain in right toe(s) M79.674 and Pain in left toe(s) M79.[address] [facility] [address] 11/14/2024 Jayne Luu Atherosclerosis of [place] artery of both lower extremities, with unspecified presence of clinical manifestation I70.203 ; Tinea unguium B35.1 ; Pain in right toe(s) M79.674 and Pain in left toe(s) M79.675 [facility] [place] [address] [place] [address] 02/18/2025 Bhavin Valerio Atherosclerosis of [place] artery of both lower extremities, with unspecified presence of clinical manifestation I70.203 ; Tinea unguium B35.1 ; Pain in right toe(s) M79.674 and Pain in left toe(s) M79.675 Assessments Encounter Date Diagnosis (ICD Code) Assessment Notes Treatment Notes Treatment Clinical Notes Section Notes 08/12/2024 Atherosclerosis of [place] artery of both lower extremities, with unspecified presence of clinical manifestation (ICD-10 - I70.203) Q7(A), Q8(2B), Q9(1B,2C) 11/14/2024 Atherosclerosis of [place] artery of both lower extremities, with unspecified presence of clinical manifestation (ICD-10 - I70.203) Q7(A), Q8(2B), Q9(1B,2C) 02/18/2025 Tinea unguium (ICD-10 - B35.1) 02/18/2025 Atherosclerosis of [place] artery of both lower extremities, with unspecified presence of clinical manifestation (ICD-10 - I70.203) Q7(A), Q8(2B), Q9(1B,2C) 02/18/2025 Pain in right toe(s) (ICD-10 - M79.674) 11/14/2024 Tinea unguium (ICD-10 - B35.1) 08/12/2024 Tinea unguium (ICD-10 - B35.1) 08/12/2024 Pain in right toe(s) (ICD-10 - M79.674) 02/18/2025 Pain in left toe(s) (ICD-10 - M79.675) 11/14/2024 Pain in right toe(s) (ICD-10 - M79.674) 11/14/2024 Pain in left toe(s) (ICD-10 - M79.675) 08/12/2024 Pain in left toe(s) (ICD-10 - M79.675) Plan Of Treatment Pending Test Test Name Order Date X ray : Foot, left 3V 03/13/2023 71197-BTMFWFT NAIL, 6 OR MORE 03/25/2024 89256-ISNJLEQ NAIL, 6 OR MORE 10/09/2017 82950-UXEIOZW NAIL, 6 OR MORE 04/10/2017 74351-IGEQZIN NAIL, 6 OR MORE 07/10/2017 38714-UXCBOUN NAIL, 6 OR MORE 01/10/2018 76107-TJRTLOB NAIL, 6 OR MORE 08/12/2024 79342-YYRCKLI NAIL, 6 OR MORE 11/14/2024 99728-KDBHOBX NAIL, 6 OR MORE 02/18/2025 40282-WFGCOFZ NAIL, 6 OR MORE 04/25/2016 22145-XAESHLJ NAIL, 6 OR MORE 07/25/2016 23400-BCCWQUF NAIL, 6 OR MORE 10/24/2016 24456-OZRIZIZ NAIL, 6 OR MORE 01/16/2017 87173-SRJEWGM NAIL, 1-5 11/11/2015 87372-NFXFONJ NAIL, 1-5 01/28/2016 59201-GHPZONN NAIL, 1-5 08/01/2013 29781-FHFYTQY NAIL, 1-5 04/24/2014 35644-SGWAXMR NAIL, 1-5 08/06/2014 62388-OHWVCPL NAIL, 1-5 11/05/2014 23105-NCVZNUB NAIL, 1-5 04/01/2015 47771-UJCQOGW NAIL, 1-5 07/27/2015 87362-Stvbezhi Plate 07/27/2015 99599-Yyywgehp Plate 08/06/2014 23184-Adxhlrzz Plate 11/05/2014 86657-Txrzwjkr Plate 10/24/2013 71819-Tsfttgdl Plate 04/24/2014 12134-Lkgssind Plate 01/18/2016 17040-Mklhcaxd Plate 01/27/2014 06825- Debride <25 sq cm 01/27/2014 84337- Debride <25 sq cm 10/24/2013 92739- Debride <25 sq cm 08/01/2013 87828- Debride <25 sq cm 01/28/2016 48825-ZIAE SKIN LESIONS, OVER 4 02/19/20 25 30357-HACS SKIN LESIONS, OVER 4 01/01/20 19 25197-AKPC SKIN LESIONS, OVER 4 04/01/20 19 79790-FWSH SKIN LESIONS, OVER 4 07/01/19 20 79295-JWCZ SKIN LESIONS, OVER 4 10/07/19 20 63759-IFYL SKIN LESIONS, OVER 4 01/27/20 20 80624-HBQX SKIN LESIONS, OVER 4 06/03/19 21 24113-OOPZ SKIN LESIONS, OVER 4 09/22/19 21 67618-XUQC SKIN LESIONS, OVER 4 01/05/20 21 98538-ZDVL SKIN LESIONS, OVER 4 05/10/19 10251-DHXE SKIN LESIONS, OVER 4 08/10/19 49277-VKSD SKIN LESIONS, OVER 4 10/10/19 18 26197-ZRJA SKIN LESIONS, OVER 4 07/11/19 18 85532-SWFW SKIN LESIONS, OVER 4 01/11/20 18 17759-IYNI SKIN LESIONS, OVER 4 03/25/20 24 64830-XFKQ SKIN LESIONS, OVER 4 07/27/19 16 70074-FPUD SKIN LESIONS, OVER 4 04/01/20 15 94819-NRNP SKIN LESIONS, OVER 4 11/11/19 16 36123-SWDU SKIN LESIONS, OVER 4 01/28/20 16 81540-NLJK SKIN LESIONS, OVER 4 04/10/20 17 77779-SRQP SKIN LESIONS, OVER 4 01/17/20 17 15456-OQNA SKIN LESIONS, OVER 4 07/26/19 17 66909-BZDS SKIN LESIONS, OVER 4 10/25/19 17 51635-XTWK SKIN LESIONS, OVER 4 04/25/20 16 26155-Bdxd. Subungual Hematoma 47418-WURW NAIL(S) 01/28/2016 90826-HJZK NAIL(S) 11/11/2015 43783-TNDE NAIL(S) 04/01/2015 36910-BZJN NAIL(S) 07/27/2015 Next Appt Details Provider Name:Bhavin Valerio , 06/13/2025 01:30:00 PM, [address], [place], [address], Insurance Providers Payer Name Payer Address Payer Phone Subscriber Number Group Number Insured Name Patient Relationship to Insured Coverage Start Date Coverage End Date Medicare National [employer] [address] [place] [address] [id number] Siena Vazquez Self - patient is the insured [employer] [address] [place] [address] [id number] Siena Vazquez Self - patient is the insured Medical (General) History Medical History History ICD Code asthma Measles Mumps Chicken pox Surgical History Surgery Date(Month/Year) cataract both eyes 10/06/2014 10/20/2014 Hospitalization History Reason Date(Month/Year) [facility] ER-Diverticulitis 4 hrs 05/20/22 [facility] ER for non stoping blood on toe. 01/06 06/23 [facility] for dehydration - then senior care 04/2018 [facility] ER for allergic reaction to Zoloft. 10/01/17 Patient admitted to [facility] er x 3wks; diverticulitis 01/2015
--- OUTSIDE RECORDS SUMMARY | 2025-03-27 14:49 | XMS_ITS | Clinical Summary ---
Author Organization [employer] Address [address] [place] [address] Care Team Providers Care Financial Administrator Name Role Phone Unavailable Primary Care Provider Unavailabl e Immunizations Immunization Administration Dates Next Due Influenza High-dose Quadriva lent Preservative Free 01/31/2022,01/21/2020 Influenza Quadrivalent Adjuvanted 01/27/2023 Influenza, High Dose Seasona l, Preservative Free 02/05/2018,01/05/2017,2016 Influenza, Injectable, MDCK, preservative free 01/29/2015 Influenza, seasonal, injecta ble, preservative free 01/24/2024 Influenza, trivalent, adjuvanted 02/01/2019 Pfizer Covid-19 Vaccine 12+ 07/30/2024,,07/20/2023 Pneumococcal Conjugate PCV 13 01/31/2019, 019 Pneumococcal [...] Alcohol/Substance Use Screening 1952 Tobacco Screening 1952 COVID-19 Vaccine ( season) 2025 07/30/2024, 01/24/2024, 07/20/2023, Additional history exists Influenza Vaccine (#1) 2025 , 01/24/2024, 01/27/2023, Additional history exists DTaP/Tdap/Td Vaccines (2 - Td or Tdap) 06/25/2025 06/25/2015 Zoster Vaccines Completed 04/16/2019, 01/16/2019 Pneumococcal Vaccine: 50+ Years Completed 02/10/2020, 01/31/2019, 12/31/2018, Additional history exists RSV Patients and Patients Aged 60 years or older Completed 03/04/2023 HIB Vaccines Aged Out No longer eligi [...] age to complete this topic Insurance [place] [address] [place] [id number] [facility] MEDEX MEDICARE SUPPLEMENT
== END 2025-03-27 11:05 | disposition home or self-care (01) ==
LOC: HO.HMCH 10:06
PROVIDERS: PCP Internal Medicine; Visit Provider Internal Medicine
DX: E78.00 Pure hypercholesterolemia, unspecified (principal); M81.0 Age-related osteoporosis without current pathological fracture; J43.1 Panlobular emphysema; F41.1 Generalized anxiety disorder; C44.91 Basal cell carcinoma of skin, unspecified

== ENCOUNTER → 2025-03-27 10:05 | Outpatient (BNVA) | payer MEDICARE, SELFPAY | PROVIDERS: PCP Internal Medicine; Visit Provider Internal Medicine | DX: E78.00 Pure hypercholesterolemia, unspecified (principal); M81.0 Age-related osteoporosis without current pathological fracture; J43.1 Panlobular emphysema; F41.1 Generalized anxiety disorder; C44.91 Basal cell carcinoma of skin, unspecified; Z87.891 Personal history of nicotine dependence | CPT/HCPCS: 99212 ==

== ENCOUNTER 2025-04-14 11:40 | Outpatient (REF) | payer MEDICARE, SELFPAY ==
--- NOTE | ~2025-04-14 | MM_ITS ---
EXAMINATION: MM SCREENING DIGITAL BREAST TOMOSYNTHESIS, BILATERAL CLINICAL INFORMATION: Screening. Asymptomatic. COMPARISON: Mammography: Comparison is made with available priors TECHNIQUE: Digital breast mammography with tomosynthesis is performed in both the craniocaudal and mediolateral oblique views along with computer-aided detection (CAD). FINDINGS: There are scattered areas of fibroglandular density. There are no significant masses, abnormal calcifications, or other abnormalities. MM/MM tomosynthesis screening BI IMPRESSION: No mammographic evidence of malignancy. ASSESSMENT: BI-RADS Category 1: Negative RECOMMENDATION: Routine annual mammography screening. 1 year F/U This examination should not preclude the clinical evaluation of a suspicious palpable abnormality. This patient's information was entered into a reminder system with a target due date for their next mammogram. Electronically signed by: Ginna Macedo DO 04/14/2025 03:51 PM PHIL
== END 2025-04-14 11:41 | disposition home or self-care (01) ==
LOC: HO.MAMMO 11:40
PROVIDERS: PCP Internal Medicine; Visit Provider Internal Medicine
DX: Z12.31 Encounter for screening mammogram for malignant neoplasm of breast (principal)
CPT/HCPCS: 77063; 77067

== ENCOUNTER → 2025-04-14 12:00 | Outpatient (BNV) | payer MEDICARE, SELFPAY | PROVIDERS: PCP Internal Medicine; Visit Provider Internal Medicine | DX: Z12.31 Encounter for screening mammogram for malignant neoplasm of breast (principal) | CPT/HCPCS: 77063; 77067 ==